=== PATIENT | male | born 1945 | race Caucasian/White ===

== ENCOUNTER 2020-01-13 10:21 | Day surgery (SDC) | payer MEDICARE, OTHER ==
--- NOTE | 2020-01-12 22:15 | Pre-Procedure Note/Attestation ---
Pre-Procedure Note/Attestation Complete Prior to Procedure Planned Procedure: right - Removal of cataract and placement of intraocular lens, right eye Procedure Narrative: Removal of cataract and placement of intraocular lens, right eye Indications for Procedure Pre-Operative Diagnosis: Cataract, combined, right eye Attestation I attest that I discussed the nature of the procedure; its benefits; risks and complications; and alternatives (and the risks and benefits of such alternatives ), prior to the procedure, with the patient (or the patient's legal medical claims representative). I attest that, if there was a reasonable possibility of needing a blood transfusion, the patient (or the patient's legal medical claims representative) was given the [place] Department [employer] standardized written summary, pursuant to the [place] Blood Safety Act ([place] Health and Safety Code # 1645, as amended). I attest that I re-evaluated the patient just prior to the surgery and that there has been no change in the patient's H&P, except as documented below: Yayo Ott MD Jan 12, 2020 22:15
[~2020-01-13] VITALS: Ht 172.7 cm; Wt 100.7 kg
[2020-01-13] VITALS (8 sets, daily range): BP systolic 96–111; BP diastolic 60–76
[~2020-01-13 10:21] MED LIST: ADEMPAS2.5 MG PO; BUMEX1 MG ORAL; CYANOCOBALAMIN IM; CYCLOBENZAPRINE10 MG ORAL; DESOWEN60 GM TP; ELIQUIS5 MG PO; HYDROXYZINE HCL25 M1 PO; LOMOTIL TABLET1 EACH ORAL; ONDANSETRON ODT8 MG ORAL; OXYBUTYNIN CHLO10 MG PO; PREDNISONE2.5 MG ORAL; PRILOSEC OTC20 MG ORAL; PROSCAR5 MG ORAL; SYMBICORT 16010.2 G1 IH; SYNTHROID150 MCG ORAL; TRAMADOL HCL50 MG ORAL; VENLAFAXINE HCL25 MG ORAL; XANAX0.5 MG ORAL; ZOCOR20 M1 ORAL; periactin PO; testosterone IM
[2020-01-13] MEDS: Cyclopentolate 1% Opth Sol 2ml RIGHT EYE SCH ×3 (10:55→11:36)
[2020-01-13] MEDS: Phenylephrine 10% Opth Soln 5ml RIGHT EYE SCH ×3 (10:56→11:36)
[2020-01-13] MEDS: Tropicamide 1% Opth 15ml Soln RIGHT EYE SCH ×3 (10:56→11:36)
[2020-01-13] MEDS: Akten 3.5% 1ml Btl RIGHT EYE SCH ×3 (10:56→11:36)
[2020-01-13] MEDS: prednisoLONE acetate 1% Opth Susp 1ml RIGHT EYE SCH ×3 (10:56→11:37)
[2020-01-13] MEDS: Vigamox Opth Soln 3ml RIGHT EYE SCH ×3 (10:56→11:37)
[2020-01-13] MEDS ORDERED: fentaNYL 100 mcg/2 mL IV ONE (11:30)
[2020-01-13] MEDS ORDERED: Povidone-Iodine 5% opth solution ONE (12:19)
[2020-01-13] MEDS ORDERED: Sodium Hyaluronate 10 mg/ml 0.85ml ONE ×2 (12:19→13:40)
[2020-01-13] MEDS ORDERED: Lidocaine 4% Amp 5ml ONE (12:19)
[2020-01-13] MEDS ORDERED: Lidocaine 1% MPF 10mg/ml 5ml ONE (12:19)
[2020-01-13] MEDS ORDERED: BSS 500ml btl ONE (12:19)
[2020-01-13] MEDS ORDERED: BSS 15ml BTL ONE (12:19)
[2020-01-13] MEDS ORDERED: Tetracaine 0.5% Opth 4ml Soln ONE ×2 (12:19→13:40)
[2020-01-13] MEDS ORDERED: Maxitrol Opth Oint 3.5gm ONE (12:20)
[2020-01-13] MEDS ORDERED: prednisoLONE acetate 1% Opth Susp 1ml ONE (12:20)
[2020-01-13] MEDS ORDERED: timoloL maleate 0.5% Op Soln 2.5ml ONE (12:20)
[2020-01-13] MEDS ORDERED: Sterile Water Irrig 1000ml IRRIG ONE (12:30)
[2020-01-13] MEDS ORDERED: NS Irrig 1000ml ONE (12:30)
[2020-01-13] MEDS ORDERED: LR 1000ml ONE (12:30)
--- NOTE | 2020-01-13 13:02 | Anethesia Preoperative Eval ---
Anesthesia Pre-op PMH/ROS General Date of Evaluation: Jan 13, 2020 Time of Evaluation: 12:22 Anesthesiologist: Jose Alfredo ASA Score: ASA 4 Mallampati Score Class I : Soft palate, uvula, fauces, pillars visible Class II: Soft palate, uvula, fauces visible Class III: Soft palate, base of uvula visible Class IV: Only hard plate visible Mallampati Classification: Class III Surgeon: Tru Diagnosis: R eye cataract Surgical Procedure: Cataract extraction Anesthesia History: none Social History: smoking - h/o Family History: no anesthesia problems Allergies: Coded Allergies: LEVOFLOXACIN (Verified Allergy, Severe, throat closes up, 12/15/19) MELOXICAM (Verified Allergy, Severe, throat closes up, 12/15/19) Medications: see eMAR Patient NPO?: Yes Past Medical History Cardiovascular: Reports: HTN, CAD, other - pulmonary HTN, severe CHF; Denies: NH, valve dz, arrhythmia Pulmonary: Reports: PRITI, other - Metastatic to lung CA, s/p resection Gastrointestinal/Genitourinary: Reports: GERD, CRI, other - Suprapubic catheter; Denies: ESRD Neurologic/Psychiatric: Reports: depression/anxiety; Denies: dementia, CVA, TIA, other Endocrine: Reports: hypothyroidism, steroids - on prednison; Denies: DM, other HEENT: Reports: cataract (L), cataract (R) Hematology/Immune: Reports: anemia - of chronic d-s; Denies: DVT, bleeding disorder, other Musculoskeletal/Integumentary: Reports: OA, edema - Lower extr.edema; Denies: RA, DJD, DDD, other Other: obesity PMH Narrative: as above PSxH Narrative: see H&P Anesthesia Pre-op Phys. Exam Physician Exam Last Vital Signs Date Time Temp Pulse Resp B/P (MAP) Pulse Ox O2 Delivery O2 Flow Rate FiO2 01/13/20 10:57 Room Air 01/13/20 10:57 98.0 86 18 102/67 95 Constitutional: NAD Neurologic: CN 2-12 intact Cardiovascular: RRR Respiratory: CTA - diminished breath sounds Gastrointestinal: other - obesity, suprapubic catheter Airway Exam Mallampati Score: Class III MO: limited Neck: short,thick ROM: limited Teeth: missing Dentures: no upper, no lower Anesthesia Pre-op A/P Labs see chart Studies Pre-op Studies: EKG - SR Risk Assessment & Plan Assessment: ASA 4 Plan: MAC with minimal sedation Status Change Before Surgery: Rick Lara MD Jan 13, 2020 13:02
[2020-01-13] MEDS ORDERED: fentaNYL 100 mcg/2 mL IV PRN (13:15)
[2020-01-13] MEDS ORDERED: LR 1000ml 1,000 ML IVLG SCH (13:15)
--- NOTE | 2020-01-13 13:37 | Discharge Instructions ---
Discharge Instructions Discharge Instructions Follow Up Orders Wear eye shield at all times except to place eye drops Continue preoperative eye drops Followup tomorrow in Dr Ott's office For Congestive Heart Failure Reminder Report to your physician any weight gain of 5 pounds or more in one week. Yayo Ott MD Jan 13, 2020 13:37
--- NOTE | 2020-01-13 13:39 | Brief Operative Note ---
Immediate Post Operative Note Operative Note Pre-op Diagnosis: Cataract, combined, right eye Procedure: Phaco PC IOL OD Post-op Diagnosis: same as pre-op Surgeon: Aba Ott MD MS Access Liaison: none Anesthesiologist: Dr Veliz Anesthesia: local, MAC Specimen: none Complications: none Fluids: see chart Estimated Blood Loss: minimal Implant(s) used?: Yes - trejo ZCB00 20.0 Yayo Ott MD Jan 13, 2020 13:39
--- NOTE | 2020-01-13 13:40 | Immediate Post-Op Evaluation ---
Immediate Post-Op Evalulation Immediate Post-Op Evalulation Procedure: R eye cataract extraction with IOL Date of Evaluation: Jan 13, 2020 Time of Evaluation: 13:39 IV Fluids: 100 Blood Products: none Estimated Blood Loss: min Urinary Output: none Blood Pressure Systolic: 108 Blood Pressure Diastolic: 56 Pulse Rate: 86 Respiratory Rate: 22 O2 Sat by Pulse Oximetry: 92 Temperature (Fahrenheit): 98.2 Pain Score (1-10): 1 Nausea: No Vomiting: No Complications none Patient Status: awake, patent, none Hydration Status: adequate Rick Veliz MD Jan 13, 2020 13:40
--- NOTE | 2020-01-13 14:25 | 48 Hour Post Anesthesia Eval ---
Post Anesthesia Evaluation Procedure: R eye cataract extraction with IOL Date of Evaluation: Jan 13, 2020 Time of Evaluation: 14:24 Blood Pressure Systolic: 104 0: 76 Pulse Rate: 86 Respiratory Rate: 22 Temperature (Fahrenheit): 97.6 O2 Sat by Pulse Oximetry: 94 Airway: patent Nausea: No Vomiting: No Pain Intensity: 1 Hydration Status: adequate Cardiopulmonary Status: stable Mental Status/LOC: patient returned to baseline Follow-up Care/Observations: n/a Post-Anesthesia Complications: none Follow-up care needed: ready to discharge Rick Veliz MD Jan 13, 2020 14:25
[2020-01-13] MEDS ORDERED: Bupivacaine 0.75% 30ml vial INJ ONE (15:08)
--- NOTE | 2020-01-13 17:15 | Operative Note - Dictated ---
DATE OF OPERATION: 01/13/2020 SURGEON: Yayo Ott MD. AIRPLANE PILOT CHIEF SURGEON: None. ANESTHESIOLOGIST: Rick Veliz MD. ANESTHESIA: Local/standby/monitored anesthesia care. PREOPERATIVE DIAGNOSIS: Cataract, combined, right eye. POSTOPERATIVE DIAGNOSIS: Cataract, combined, right eye. PROCEDURE: 1. Phacoemulsification cataract, right eye. 2. Placement of posterior chamber intraocular lens, right eye (model ZCB00, power 20.0). SPECIMENS: None. COMPLICATIONS: None. INDICATIONS FOR SURGERY: The patient has had the painless progressive decrease in visual acuity in the right eye secondary to a cataract. The patient understands the risks of surgery including infection, bleeding, need for further surgery, loss of vision, no improvement in vision, loss of the eye, loss of life, glaucoma, retinal detachment, understands these risks and elects to proceed with surgery. FINDINGS: The patient had a +3 to 4 nuclear sclerotic cataract that is very dense centrally as well as +2 cortical changes. OPERATIVE NOTE: After informed consent was obtained, the patient was brought into the operating room and placed in supine position. Cardiac and respiratory monitors were attached. A time-out was performed and all criteria were met and everyone in the room agreed. The right eye was draped and prepped in sterile manner for ocular surgery. A lid speculum was placed in the eye. The patient had surgery in his other eye several weeks ago and he had a very difficult time holding his eye still. He began to have this type of problem at that time also and I elected to do peribulbar block. At this time, cautery scarlett was made at the inferior temporal quadrant and I cut down to the sclera. I then injected a mixture of 50:50 mix of 0.75% Marcaine and 1% lidocaine and injected as a peribulbar injection. Attention was then paid to the 3 o'clock limbus where 1% lidocaine preservative-free was injected at the approximate 3 o'clock limbus. A conjunctiva peritomy from approximately 2:30 to 3:30 was made and dissected posteriorly. Hemostasis was maintained with bipolar cautery. A 2.6 mm limbal incision was made and dissected anteriorly. A paracentesis was made at approximately 12 o'clock and Shugarcaine was injected into the anterior chamber followed by Adama. The anterior chamber was then entered using a 2.6 mm keratome through the limbal incision. An anterior capsulorrhexis was then performed. Hydrodissection and hydrodelineation of the lens was then performed. The lens was then phacoemulsified using a divide and conquer four-quadrant technique. Residual cortical material was then aspirated. Healon was injected into the anterior chamber and capsular bag. The lens was taken from its package, placed into the cartridge and the tip of the cartridge was placed through the limbal incision and the lens was injected into capsular bag and centered nicely with a Sinskey hook. Healon was aspirated from the anterior chamber and capsular bag. Both lens was noted to have both haptics and the optic in the capsular bag and centered along the 3 o'clock to 9 o'clock meridian. The limbal wound was closed with one 10-0 nylon interrupted suture and the knot was rotated and buried. The wounds at the limbus and the paracentesis were also hydrated closed. The wounds were checked and found to be watertight. The conjunctiva for the peribulbar block was then closed with forceps cautery and then conjunctiva at the limbal incision was also closed with forceps cautery. The lid speculum was removed from the eye and the lens was noted to have both haptics and optic in the bag and centered along the 9 o'clock to 3 o'clock meridian. The drapes were removed from the eye and drops of moxifloxacin, TobraDex, and Timoptic 0.5% were applied to the eye followed by Maxitrol ointment and a shield. The patient tolerated the procedure well and left the operating room awake, alert, and in stable condition. Yayo Ott M.D. DR: Jessenia JOB#: [id number] CC:
== END 2020-01-13 14:30 | disposition home or self-care (01) ==
LOC: SUR 10:21
DX: H25.11 Age-related nuclear cataract, right eye (principal); H25.011 Cortical age-related cataract, right eye; K21.9 Gastro-esophageal reflux disease without esophagitis; I13.0 Hypertensive heart and chronic kidney disease with heart failure and stage 1 through stage 4 chronic kidney disease, or unspecified chronic kidney disease; N18.9 Chronic kidney disease, unspecified; I50.9 Heart failure, unspecified; I25.10 Atherosclerotic heart disease of native coronary artery without angina pectoris; G47.33 Obstructive sleep apnea (adult) (pediatric); Z87.891 Personal history of nicotine dependence; F32.9 Major depressive disorder, single episode, unspecified; F41.9 Anxiety disorder, unspecified; E03.9 Hypothyroidism, unspecified; D63.1 Anemia in chronic kidney disease; E66.9 Obesity, unspecified; M19.90 Unspecified osteoarthritis, unspecified site; Z88.8 Allergy status to other drugs, medicaments and biological substances; Z79.52 Long term (current) use of systemic steroids
CPT/HCPCS: 66984; 94003; J3010; J3490; J7120; U0002; V2632; 94150

== ENCOUNTER 2020-04-07 14:41 | Inpatient (IN) | payer MEDICARE, OTHER ==
[~2020-04-07] VITALS: Ht 170.2 cm; Wt 101.2 kg
--- NOTE | 2020-04-07 15:17 | Emergency Room Report ---
History of Present Illness General Chief Complaint: Generalized Weakness Source: Patient Present Illness HPI Patient presents with weakness. He was just discharged from [facility] after having a takedown of a colostomy/ileostomy. Over the course of the last 24 hours he has been unable to ambulate or stand on his own. He denies any fevers or chills. He denies increased abdominal pain. He has moved his bowels today they were loose. He has a Castro that had dark urine. There is no nausea or vomiting. He denies upper respiratory symptoms with cough or sore throat. He was tested for Covid last week and it was negative at [facility]. He does have oxygen at 2-1/2 L/min at home. He feels dehydrated. He is complaining about pain throughout his body. One of the places that he has pain in his left hand where there was an IV. The redness of the hand seems to be worsened. Allergies: Coded Allergies: LEVOFLOXACIN (Verified Allergy, Severe, throat closes up, 12/15/19) MELOXICAM (Verified Allergy, Severe, throat closes up, 12/15/19) COVID-19 Screening Contact w/high risk pt: No Experienced COVID-19 symptoms?: No COVID-19 Testing performed SHERIFF SERGEANT: Yes COVID-19 Screening: Negative COVID-19 COVID-19 Testing Source: 3 days ago Patient History Past Medical History: see triage record Past Surgical History: other - Ileostomy and colostomy with revision Social History: Denies: smoking Social History Narrative From home with model maker plastic Reviewed Nursing Documentation: PMH: Agreed; PSxH: Agreed Nursing Documentation-PM Past Medical History: No History, Except For Hx Cardiac Problems: Yes Hx Cancer: Yes - renal Hx Gastrointestinal Problems: Yes - ileostomy Hx Neurological Problems: No Review of Systems All Other Systems: negative except mentioned in HPI Physical Exam Vital Signs Date Time Temp Pulse Resp B/P (MAP) Pulse Ox O2 Delivery O2 Flow Rate FiO2 04/07/20 14:49 98.2 85 20 98/59 (72) 90 Room Air Sp02 EP Interpretation: reviewed, normal General Appearance: obese, Chronically Ill Head: normocephalic Eyes: bilateral eye normal inspection, bilateral eye PERRL, bilateral eye EOMI ENT: dry mucus membranes Neck: supple Respiratory: lungs clear, normal breath sounds Cardiovascular #1: regular rate, rhythm Cardiovascular #2: 2+ radial (R) Gastrointestinal: normal inspection, normal bowel sounds, non tender, no mass, non-distended, other - Right lower abdomen surgical scar Genitourinary: no CVA tenderness, other - Castro Musculoskeletal: back normal, normal range of motion, other - Unable to stand on own Neurologic: alert, oriented x3, motor weakness - Generalized Psychiatric: depressed affect Skin: warm/dry, other - Erythema left hand extending up some of the forearm Medical Decision Making Reaction to Intervention: Escalated Behavior Diagnostic Impression: Primary Impression: Unable to ambulate Additional Impressions: Renal insufficiency Hypokalemia UTI (urinary tract infection) Qualified Codes: T83.511A - Infection and inflammatory reaction due to indwelling urethral catheter, initial encounter; N39.0 - Urinary tract infection, site not specified Hypomagnesemia ER Course Patient presents with inability to stand or walk after being discharged from [facility] for reversal of ileostomy/colostomy. Differential is broad including acute myocardial infarction, dehydration, sepsis, cellulitis, UTI amongst others. The patient is hypoxemic and hypotensive and therefore fluids and oxygen are indicated. EKG without injury. Chest x-ray atelectasis right base. Labs with normal white count. CMP with low potassium and renal insufficiency. Magnesium low. Patient complaining about anxiety. Ativan ordered. Vital signs improved. Patient still feels weakness. Patient admitted to the hospital. (Urine returned after patient admitted. Antibiotics not started in the emergency department. Discussed with floor nurses for need for antibiotics. Also communicated with admitting MD.) Laboratory Tests Test 04/07/20 16:20 04/07/20 16:25 White Blood Count 6.6 K/UL (4.8-10.8) Red Blood Count 3.43 M/UL (4.70-6.10) L Hemoglobin 9.1 G/DL (14.2-18.0) L Hematocrit 28.0 % (42.0-52.0) L Mean Corpuscular Volume 82 FL (80-99) Mean Corpuscular Hemoglobin 26.5 PG (27.0-31.0) L Mean Corpuscular Hemoglobin Concent 32.4 G/DL (32.0-36.0) Red Cell Distribution Width 20.4 % (11.6-14.8) H Platelet Count 176 K/UL (150-450) Mean Platelet Volume 7.9 FL (6.5-10.1) Neutrophils (%) (Auto) 72.5 % (45.0-75.0) Lymphocytes (%) (Auto) 15.0 % (20.0-45.0) L Monocytes (%) (Auto) 10.9 % (1.0-10.0) H Eosinophils (%) (Auto) 0.2 % (0.0-3.0) Basophils (%) (Auto) 1.4 % (0.0-2.0) Prothrombin Time 11.9 SEC (9.30-11.50) H Prothrombin Time INR 1.1 (0.9-1.1) Activated Partial Thromboplast Time 26 SEC (23-33) Sodium Level 136 MMOL/L (136-145) Potassium Level 3.1 MMOL/L (3.5-5.1) L Chloride Level 100 MMOL/L (98-107) Carbon Dioxide Level 26 MMOL/L (21-32) Anion Gap 10 mmol/L (5-15) Blood Urea Nitrogen 20 mg/dL (7-18) H Creatinine 1.8 MG/DL (0.55-1.30) H Estimated Glomerular Filtration Rate 36.9 mL/min (>60) Glucose Level 71 MG/DL (74-106) L Lactic Acid Level 1.30 mmol/L (0.4-2.0) Calcium Level 7.6 MG/DL (8.5-10.1) L Magnesium Level 1.5 MG/DL (1.8-2.4) L Ferritin 107 NG/ML (8-388) Total Bilirubin 0.9 MG/DL (0.2-1.0) Aspartate Amino Transferase (AST) 59 U/L (15-37) H Alanine Aminotransferase (ALT) 65 U/L (12-78) Alkaline Phosphatase 108 U/L (46-116) Lactate Dehydrogenase 226 U/L (81-234) Total Creatine Kinase 28 U/L (26-308) Troponin I 0.005 ng/mL (0.000-0.056) C-Reactive Protein, Quantitative 8.9 mg/dL (0.00-0.90) H Pro-B-Type Natriuretic Peptide 454 pg/mL (0-125) H Total Protein 6.2 G/DL (6.4-8.2) L Albumin 2.0 G/DL (3.4-5.0) L Globulin 4.2 g/dL Albumin/Globulin Ratio 0.5 (1.0-2.7) L Lipase 71 U/L (73-393) L Urine Color Red Urine Appearance Very cloudy Urine pH 7 (4.5-8.0) Urine Specific [place] 1.005 (1.005-1.035) Urine Protein 2+ (NEGATIVE) H Urine Glucose (UA) Negative (NEGATIVE) Urine Ketones 1+ (NEGATIVE) H Urine Blood 5+ (NEGATIVE) H Urine Nitrite Positive (NEGATIVE) H Urine Bilirubin Negative (NEGATIVE) Urine Urobilinogen 1 MG/DL (0.0-1.0) H Urine Leukocyte Esterase 3+ (NEGATIVE) H Urine RBC Tntc /HPF (0 - 0) H Urine WBC 20-30 /HPF (0 - 0) H Urine Squamous Epithelial Cells None /LPF (NONE/OCC) Urine Bacteria Many /HPF (NONE) H EKG Diagnostic Results Rate: normal Rhythm: NSR ST Segments: no acute changes - Nonspecific ST-T wave changes Rhythm Strip Diag. Results EP Interpretation: yes Rhythm: NSR, no PVC's, no ectopy Chest X-Ray Diagnostic Results Chest X-Ray Diagnostic Results : Chest X-Ray Ordered: Yes # of Views/Limited/Complete: 1 View Indication: Other EP Interpretation: Yes Interpretation: no consolidation, no effusion, no pneumothorax, other - atelectasis Impression: Other Electronically Signed by: Electronically signed by Zurdo Chaidez MD Last Vital Signs Date Time Temp Pulse Resp B/P (MAP) Pulse Ox O2 Delivery O2 Flow Rate FiO2 04/07/20 20:04 98.2 81 21 112/72 94 Room Air Status: improved Disposition: ADMITTED INPATIENT Condition: Serious Zurdo Chaidez MD Apr 07, 2020 15:17
--- NOTE | 2020-04-07 15:28 | NUR ---
ED Nurse Note: pt was placed on OB Room.
--- NOTE | 2020-04-07 15:32 | NUR ---
ED Nurse Note: x-ray at bedside.
--- NOTE | 2020-04-07 16:00 | NUR ---
ED Nurse Note: Pt was wheeled in to ED from home, wheelchair assist d/t difficulty ambulation and generalized weakness that has been going on for 1 month. Pt is AOx4, calm and cooperative to care. Pt arrived with a suprapubic catheter, intact noted with dark brown-red urine output; assessed pt with distended abdomen, edema noted on L upper extemities and bilateral foot, pitting. Pt was placed on bed and gown; family member at bedside. will continue to monitor.
--- NOTE | 2020-04-07 16:45 | NUR ---
ED Nurse Note: urine collected, sent to lab
[2020-04-07 16:47] LABS: BASOPHILS % (AUTO) 1.4 % (0.0-2.0); EOSINOPHILS % (AUTO) 0.2 % (0.0-3.0); HEMOGLOBIN 9.1 G/DL (14.2-18.0); MEAN CORPUSCULAR VOLUME 82 FL (80-99); MONOCYTES % (AUTO) 10.9 % (1.0-10.0); NEUTROPHILS % (AUTO) 72.5 % (45.0-75.0); PLATELET COUNT 176 K/UL (150-450); RED BLOOD COUNT 3.43 M/UL (4.70-6.10); RED CELL DISTRIBUTION WIDTH 20.4 % (11.6-14.8); WHITE BLOOD COUNT 6.6 K/UL (4.8-10.8)
--- NOTE | 2020-04-07 16:51 | Diagnostic Imaging Report ---
Indication: Reason For Exam: Abdominal pain Technique: Single AP view of the abdomen. Comparison: None available Findings: Bowel gas pattern is nonspecific, with scattered loops of small bowel demonstrate gaseous distention. Gas is seen throughout the colon, including the rectum. Status post total right hip arthroplasty. Bases are better evaluated on separately dictated same day chest radiograph. IMPRESSION: Nonspecific bowel gas pattern.
[2020-04-07 16:55] LABS: ANION GAP 10 mmol/L (5-15); BLOOD UREA NITROGEN 20 mg/dL (7-18); CALCIUM 7.6 MG/DL (8.5-10.1); CARBON DIOXIDE 26 MMOL/L (21-32); CHLORIDE 100 MMOL/L (98-107); CREATININE 1.8 MG/DL (0.55-1.30); POTASSIUM 3.1 MMOL/L (3.5-5.1); SODIUM 136 MMOL/L (136-145)
[2020-04-07 16:56] LABS: INR 1.1 (0.9-1.1)
[2020-04-07 17:09] VITALS: BP 111/69
--- NOTE | 2020-04-07 17:12 | Diagnostic Imaging Report ---
Indication: Reason For Exam: Shortness of breath Technique: Single AP view of the chest. Comparison: None. Findings: Heart is mildly enlarged when accounting for projection and technique. There is widening of the mediastinum, with caliber change in the mid trachea No airspace consolidation. Linear right midlung opacity likely represents chronic atelectasis or scarring. No pleural effusion or pneumothorax. No acute osseous abnormality. IMPRESSION: Prominent mediastinum with apparent smooth caliber change of the mid trachea; mediastinum mass or lymphadenopathy is not excluded. Consider further evaluation with chest CT with contrast as clinically indicated.
[2020-04-07 17:13] LABS: ALANINE AMINOTRANSFERASE 65 U/L (12-78); ALBUMIN/GLOBULIN RATIO 0.5 (1.0-2.7); ALKALINE PHOSPHATASE 108 U/L (46-116); ASPARTATE AMINO TRANSFERASE 59 U/L (15-37); BILIRUBIN,TOTAL 0.9 MG/DL (0.2-1.0); CREATINE KINASE 28 U/L (26-308); FERRITIN 107 NG/ML (8-388); LACTATE DEHYDROGENASE 226 U/L (81-234)
[2020-04-07] MEDS ORDERED: LORazepam Inj 2mg/ml 1ml IV ONE (17:15)
[2020-04-07 17:47] LABS: APPEARANCE,URINE VERY CLOUDY; BILIRUBIN, URINE NEGATIVE (NEGATIVE); GLUCOSE, URINE (UA) NEGATIVE (NEGATIVE); KETONES,URINE 1+ (NEGATIVE); LEUKOCYTE ESTERASE ,URINE 3+ (NEGATIVE); NITRITE,URINE POSITIVE (NEGATIVE); PH,URINE 7 (4.5-8.0); PROTEIN,URINE 2+ (NEGATIVE); UROBILINOGEN,URINE 1 MG/DL (0.0-1.0)
[2020-04-07 18:29] LABS: COLOR,URINE RED
--- NOTE | 2020-04-07 19:36 | NUR ---
ED Nurse Note: hand-off given to HOMERO Lutz in MS unit.
--- NOTE | 2020-04-07 20:04 | NUR ---
ED Nurse Note: pt was transferred to [facility] unit under the care of dr shea. report given to clifton gutierres. pt was transferred on stable condition; all belongings was sent with pt.
[2020-04-07] MEDS ORDERED: Ondansetron ODT 8mg tab ORAL PRN (21:45)
[2020-04-07] MEDS ORDERED: HydrOXYzine tab 25mg tab ORAL PRN (21:45)
--- NOTE | 2020-04-07 22:00 | NUR ---
NURSE NOTES: Received patient from ED via gurney accompanied by staff. Alert and oriented x4. SKin assessment done. Belongings checked. Called Dr. Kumar for admission orders and Dr. Angulo was the telecommunications linesworker MD, Obtained orders and carried out. Instructed patient to use call light for assistance. Bed in lowest, lock engaged and alarm on. Will monitor patient.
[2020-04-07] MEDS: ALPRAZolam 0.5mg tab ORAL PRN (23:11)
[2020-04-08] VITALS: BP 121/64
--- NOTE | 2020-04-08 02:15 | NUR ---
NURSE NOTES:Dr Chaidez called and asked if Dr Kumar be informed re uti, patient needs antibiotics, message left for Dr Angulo, doctor covering José, primary nurse aware.
[2020-04-08 04:00] VITALS: BP 96/50
--- NOTE | 2020-04-08 06:52 | NUR ---
NURSE NOTES: Called Dr. Kumar and connected to doctor sales promotion officer and left message regarding patient's skin issue Kirsten to verify dose, Desonide cream and riociguat. Per patient nobody can't bring the cream and riociguat to the hospital.
[2020-04-08 07:07] LABS: BASOPHILS % (AUTO) 1.5 % (0.0-2.0); EOSINOPHILS % (AUTO) 2.4 % (0.0-3.0); HEMATOCRIT 26.5 % (42.0-52.0); HEMOGLOBIN 8.7 G/DL (14.2-18.0); LYMPHOCYTES % (AUTO) 18.6 % (20.0-45.0); MEAN CORPUSCULAR VOLUME 80 FL (80-99); MONOCYTES % (AUTO) 14.5 % (1.0-10.0); PLATELET COUNT 161 K/UL (150-450); RED BLOOD COUNT 3.32 M/UL (4.70-6.10); RED CELL DISTRIBUTION WIDTH 21.9 % (11.6-14.8); WHITE BLOOD COUNT 3.5 K/UL (4.8-10.8)
[2020-04-08 07:26] LABS: PHOSPHORUS 4.1 MG/DL (2.5-4.9)
[2020-04-08 07:33] LABS: ALBUMIN 1.8 G/DL (3.4-5.0); ALBUMIN/GLOBULIN RATIO 0.5 (1.0-2.7); BILIRUBIN,TOTAL 0.9 MG/DL (0.2-1.0); CALCIUM 7.3 MG/DL (8.5-10.1); CREATININE 1.8 MG/DL (0.55-1.30); POTASSIUM 2.7 MMOL/L (3.5-5.1)
[2020-04-08 08:00] VITALS: BP 105/71
--- NOTE | 2020-04-08 08:00 | NUR ---
HAND-OFF: Report given to HOMERO Stephens.
[2020-04-08] MEDS ORDERED: Cefepime 1gm/D5W 55ml IVPB SCH ×2 (09:00)
[2020-04-08] MEDS ORDERED: Eliquis 5mg tablet ORAL SCH (09:00)
[2020-04-08] MEDS ORDERED: Cefepime HCl 2 GM in D5W 55 ML IVPB SCH (09:00)
[2020-04-08] MEDS: Bumetanide 1mg tab ORAL SCH ×3 (09:55→17:15)
[2020-04-08] MEDS: Oxybutynin 5mg tab ORAL SCH (09:56)
--- NOTE | 2020-04-08 10:54 | History and Physical ---
Sania Menard ANESTHESIOLOGIST ASSISTANT 04/08/20 1054: History of Present Illness General Date patient seen: Apr 08, 2020 Time patient seen: 09:30 Reason for Hospitalization: Generalized Weakness Present Illness HPI 74 years old male recently hospitalized at [facility] for takedown of ileostomy with PMH of CKD, HTN, moderate pulmonary HTN, colon cancer, history of perforated diverticulitis, status post multiple surgery, s/p recent ileostomy takedown ( as mentioned above), metastatic colon can cer with mets to lungs ( biopsy proven RML/RUL wedge , currently on Nivolumab), history of left femoral DVT and bilateral PE, diagnosed 05/01/2019, on a/c; chronic cough/chronic bronchitis apparently was unable to ambulate at home and stay on his own. He denied fever and chills. He denied abdominal pain . He reported loose bowel movement. No nausea or vomiting . No cough or shortness of breath. COVID-19 alexsander at [facility] last week was negative. Patient usually oxygen dependent at home at 2 to 2-1/2 L /min. Patient reported feeling dehydrated . He reported generalized pain and weakness. Upon evaluation pulse oximetry was 90% on the room room air , no fevers. Laboratory work-up revealed anemia with hemoglobin 9.1, hematocrit 28 ,no leukocytosis, platelet count 176. Potassium 3.1. Mg 1.5 BUN 20, creatinine 1.8. proBNP 454. Albumin 2.0. CRP 8.9 Urinalysis revealed evidence of UTI and +2 protein . Urine culture thsi amd with gram-negative rods. Chest x-ray showed prominent mediastinum with apparent smooth caliber change of the mid trachea ; mediastinal mass and lymphadenopathy not excluded. Abdominal x-ray revealed nonspecific bowel gas pattern. In emergency department patient started on IV fluids, started on replacement of electrolytes and admitted for further management Allergies: Coded Allergies: LEVOFLOXACIN (Verified Allergy, Severe, throat closes up, 12/15/19) MELOXICAM (Verified Allergy, Severe, throat closes up, 12/15/19) COVID-19 Screening Contact w/high risk pt: No Experienced COVID-19 symptoms?: No Medication History Scheduled Apixaban (Eliquis*), 5 MG PO DAILY, (Reported) Budesonide/Formoterol Fumarate (Symbicort 160-4.5 Mcg Inhaler), 2 PUFF IH BID, (Reported) Bumetanide (Bumetanide), 1 MG ORAL DAILY, (Reported) Cyclobenzaprine Hcl* (Flexeril*), 5 MG ORAL THREE TIMES A DAY, (Reported) Finasteride* (Proscar*), 5 MG ORAL DAILY, (Reported) Levothyroxine Sodium* (Synthroid*), 175 MCG ORAL DAILY, (Reported) Omeprazole Magnesium (Prilosec Otc), 20 MG ORAL DAILY, (Reported) Oxybutynin Chloride (Oxybutynin Chloride Er), 10 MG PO DAILY, (Reported) Prednisone* (Prednisone*), 5 MG ORAL DAILY, (Reported) Riociguat (Adempas), 2.5 MG PO TID, (Reported) Simvastatin (Zocor), 20 MG ORAL BEDTIME, (Reported) Venlafaxine Hcl* (Effexor*), 100 MG ORAL BID, (Reported) [cynocobalamin ], 1,000 MCG IM every 14 days, (Reported) [periactin], 4 MG PO TID, (Reported) [testosterone], 200 MG IM every 14 days, (Reported) Scheduled PRN Alprazolam* (Xanax*), 0.5 MG ORAL TID PRN for For Anxiety, (Reported) Hydroxyzine Hcl (Hydroxyzine Hcl), 25 MG PO BID PRN for Itching, (Reported) Ondansetron Odt* (Zofran Odt*), 8 MG ORAL Q8HR PRN for Nausea & Vomiting, (Reported) Tramadol Hcl* (Ultram*), 50 MG ORAL Q6H PRN for For Pain, (Reported) Miscellaneous Medications Desonide (Desowen), 60 GM TP, (Reported) Patient History Healthcare decision maker Resuscitation status full code Advanced Directive on File No Review of Systems Constitutional: Reports: malaise, weakness Eye: Reports: no symptoms ENT: Reports: no symptoms Respiratory: Reports: see HPI Cardiovascular: Reports: no symptoms Gastrointestinal: Reports: see HPI Genitourinary: Reports: see HPI Musculoskeletal: Reports: no symptoms Skin: Reports: no symptoms Neurological: Reports: no symptoms Endocrine: Reports: no symptoms Hematologic/Lymphatic: Reports: no symptoms Physical Exam General Appearance: no apparent distress, alert oriented x3 Lines, tubes and drains: peripheral HEENT: normocephalic, atraumatic, anicteric, mucous membranes moist Neck: non-tender, supple Respiratory/Chest: lungs clear - with moderate air exchange , no accessory muscle use Cardiovascular/Chest: normal peripheral pulses, normal rate Abdomen: normal bowel sounds, non tender - obese , soft, other - left lower abdomen healed scar, right upper abdomen site of previous ileostomy with dressing, intact ; no evidecne of infection , healing Genitourinary/Rectal: delong - with dark urine Extremities: normal range of motion, non-tender, no calf tenderness, normal capillary refill Neurologic: no motor/sensory deficits, alert, oriented x 3, responsive Musculoskeletal: normal muscle bulk Last 24 Hour Vital Signs Date Time Temp Pulse Resp B/P (MAP) Pulse Ox O2 Delivery O2 Flow Rate FiO2 04/08/20 08:00 98.6 79 18 105/71 (82) 92 04/08/20 04:00 97.4 76 18 96/50 (65) 92 04/08/20 03:11 Nasal Cannula 2.0 04/08/20 00:00 98.3 18 121/64 (83) 92 04/07/20 20:04 98.2 81 21 112/72 94 Room Air 04/07/20 18:02 86 22 109/70 96 04/07/20 17:32 80 20 111/69 93 04/07/20 17:09 98.2 80 20 111/69 93 Room Air 04/07/20 16:30 85 20 Room Air 04/07/20 14:49 98.2 85 20 98/59 (72) 90 Room Air Intake and Output 04/07/20 04/08/20 19:00 07:00 Intake Total 900 ml Output Total 500 ml Balance 400 ml Intake Oral 500 ml IV Total 400 ml Output Urine Total 500 ml # Bowel Movements 2 Laboratory Tests Test 04/07/20 16:20 04/07/20 16:25 04/08/20 06:52 White Blood Count 6.6 K/UL (4.8-10.8) 3.5 K/UL (4.8-10.8) L Red Blood Count 3.43 M/UL (4.70-6.10) L 3.32 M/UL (4.70-6.10) L Hemoglobin 9.1 G/DL (14.2-18.0) L 8.7 G/DL (14.2-18.0) L Hematocrit 28.0 % (42.0-52.0) L 26.5 % (42.0-52.0) L Mean Corpuscular Volume 82 FL (80-99) 80 FL (80-99) Mean Corpuscular Hemoglobin 26.5 PG (27.0-31.0) L 26.1 PG (27.0-31.0) L Mean Corpuscular Hemoglobin Concent 32.4 G/DL (32.0-36.0) 32.7 G/DL (32.0-36.0) Red Cell Distribution Width 20.4 % (11.6-14.8) H 21.9 % (11.6-14.8) H Platelet Count 176 K/UL (150-450) 161 K/UL (150-450) Mean Platelet Volume 7.9 FL (6.5-10.1) 5.6 FL (6.5-10.1) L Neutrophils (%) (Auto) 72.5 % (45.0-75.0) 63.0 % (45.0-75.0) Lymphocytes (%) (Auto) 15.0 % (20.0-45.0) L 18.6 % (20.0-45.0) L Monocytes (%) (Auto) 10.9 % (1.0-10.0) H 14.5 % (1.0-10.0) H Eosinophils (%) (Auto) 0.2 % (0.0-3.0) 2.4 % (0.0-3.0) Basophils (%) (Auto) 1.4 % (0.0-2.0) 1.5 % (0.0-2.0) Prothrombin Time 11.9 SEC (9.30-11.50) H Prothromb Time International Ratio 1.1 (0.9-1.1) Activated Partial Thromboplast Time 26 SEC (23-33) Sodium Level 136 MMOL/L (136-145) 136 MMOL/L (136-145) Potassium Level 3.1 MMOL/L (3.5-5.1) L 2.7 MMOL/L (3.5-5.1) *L Chloride Level 100 MMOL/L (98-107) 101 MMOL/L (98-107) Carbon Dioxide Level 26 MMOL/L (21-32) 27 MMOL/L (21-32) Anion Gap 10 mmol/L (5-15) 9 mmol/L (5-15) Blood Urea Nitrogen 20 mg/dL (7-18) H 19 mg/dL (7-18) H Creatinine 1.8 MG/DL (0.55-1.30) H 1.8 MG/DL (0.55-1.30) H Estimat Glomerular Filtration Rate 36.9 mL/min (>60) 36.9 mL/min (>60) Glucose Level 71 MG/DL (74-106) L 73 MG/DL (74-106) L Lactic Acid Level 1.30 mmol/L (0.4-2.0) Calcium Level 7.6 MG/DL (8.5-10.1) L 7.3 MG/DL (8.5-10.1) L Magnesium Level 1.5 MG/DL (1.8-2.4) L 2.5 MG/DL (1.8-2.4) H Ferritin 107 NG/ML (8-388) Total Bilirubin 0.9 MG/DL (0.2-1.0) 0.9 MG/DL (0.2-1.0) Aspartate Amino Transf (AST/SGOT) 59 U/L (15-37) H 45 U/L (15-37) H Alanine Aminotransferase (ALT/SGPT) 65 U/L (12-78) 50 U/L (12-78) Alkaline Phosphatase 108 U/L (46-116) 90 U/L (46-116) Lactate Dehydrogenase 226 U/L (81-234) Total Creatine Kinase 28 U/L (26-308) Troponin I 0.005 ng/mL (0.000-0.056) C-Reactive Protein, Quantitative 8.9 mg/dL (0.00-0.90) H Pro-B-Type Natriuretic Peptide 454 pg/mL (0-125) H Total Protein 6.2 G/DL (6.4-8.2) L 5.6 G/DL (6.4-8.2) L Albumin 2.0 G/DL (3.4-5.0) L 1.8 G/DL (3.4-5.0) L Globulin 4.2 g/dL 3.8 g/dL Albumin/Globulin Ratio 0.5 (1.0-2.7) L 0.5 (1.0-2.7) L Lipase 71 U/L (73-393) L Urine Color Red Urine Appearance Very cloudy Urine pH 7 (4.5-8.0) Urine Specific [place]shaw 1.005 (1.005-1.035) Urine Protein 2+ (NEGATIVE) H Urine Glucose (UA) Negative (NEGATIVE) Urine Ketones 1+ (NEGATIVE) H Urine Blood 5+ (NEGATIVE) H Urine Nitrite Positive (NEGATIVE) H Urine Bilirubin Negative (NEGATIVE) Urine Urobilinogen 1 MG/DL (0.0-1.0) H Urine Leukocyte Esterase 3+ (NEGATIVE) H Urine RBC Tntc /HPF (0 - 0) H Urine WBC 20-30 /HPF (0 - 0) H Urine Squamous Epithelial Cells None /LPF (NONE/OCC) Urine Bacteria Many /HPF (NONE) H Phosphorus Level 4.1 MG/DL (2.5-4.9) Microbiology Date/Time Source Procedure Growth Status 04/07/20 16:25 Urine,Clean Catch Urine Culture - Preliminary Gram Negative Ashish Resulted Height (Feet): 5 Height (Inches): 7.00 Weight (Pounds): 223 Medications Current Medications Medications (Trade) Dose Ordered Sig/Kevon Route PRN Reason Start Time Stop Time Status Last Admin Dose Admin Alprazolam (Xanax) 0.5 mg TID PRN ORAL For Anxiety 04/07/20 21:45 04/14/20 21:44 04/07/20 23:11 Apixaban (Eliquis) 0.5 mg BID ORAL 04/08/20 09:00 07/07/20 08:59 UNV Atorvastatin Calcium (Lipitor) 10 mg BEDTIME ORAL 04/08/20 21:00 07/07/20 20:59 Budesonide/ Formoterol Fumarate (Symbicort 160/ 4.5) 2 puff BIDRT INH 04/08/20 10:00 07/07/20 09:59 04/08/20 09:50 Bumetanide (Bumex) 1 mg TID ORAL 04/08/20 09:00 05/08/20 08:59 04/08/20 09:55 Cefepime HCl 1 gm/ Dextrose 55 ml @ 110 mls/hr Q12HR IVPB 04/08/20 09:00 04/15/20 08:59 04/08/20 09:54 Escitalopram Oxalate (Lexapro) 20 mg DAILY ORAL 04/08/20 09:00 05/08/20 08:59 04/08/20 09:55 Finasteride (Proscar) 5 mg DAILY ORAL 04/08/20 09:00 07/07/20 08:59 04/08/20 09:56 Hydroxyzine HCl (Atarax) 25 mg BIDPRN PRN ORAL Itching 04/08/20 06:00 05/07/20 21:44 Levothyroxine Sodium (Synthroid) 75 mcg DAILY@0630 ORAL 04/08/20 06:30 05/08/20 06:29 04/08/20 06:51 Levothyroxine Sodium (Synthroid) 100 mcg DAILY@0630 ORAL 04/08/20 06:30 05/08/20 06:29 04/08/20 06:51 Non-Formulary Medication (Non-Formulary Med) 1 ea DAILY ORAL 04/08/20 09:00 05/08/20 08:59 UNV Non-Formulary Medication (Non-Formulary Med) 1 ea TID ORAL 04/08/20 09:00 05/08/20 08:59 UNV Ondansetron HCl (Zofran ODT) 8 mg Q8H PRN ORAL Nausea & Vomiting 04/08/20 06:00 05/07/20 21:44 Oxybutynin Chloride (Ditropan) 10 mg DAILY ORAL 04/08/20 09:00 05/08/20 08:59 04/08/20 09:56 Pantoprazole (Protonix) 40 mg BID ORAL 04/08/20 09:00 05/08/20 08:59 04/08/20 09:54 Potassium Chloride (K-Dur) 40 meq TWICE A DAY ORAL 04/08/20 09:00 04/08/20 18:01 04/08/20 09:54 Prednisone (predniSONE) 5 mg DAILY ORAL 04/08/20 09:00 05/08/20 08:59 04/08/20 09:54 Tramadol HCl (Ultram) 50 mg Q6H PRN ORAL For Pain 04/07/20 21:45 04/14/20 21:44 Assessment/Plan Assessment/Plan: ASSESSMENT UTI E/lyte imbalance : hypo Mg, hypo K CKD Pulmonary HTN /CTEPH FTT, unable to care for himself Possible protein calorie malnutrition Metastatic colon Ca with lung mets ( biopsy proven)- on Nivolumab currently 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 Hx of perforated diverticulitis with multiple surgeries, s/p recent ileostomy takedown Moderate pulmonary HTN Chronic bronchitis HTN Obesity PLAN OF CARE MS floor O2 titrate to keep sat > 92 pulm toilet resume home inhaler resume a/c s/p IVF Mg stabilized, K - still low, additional K this am monitor renal parameters, lytes, avoid nephrotoxic, nephro eval pending empiric abx fup with cx home meds resumed surgery eval pending SW for placement PT eval and Rx fall precautions dietary eval GI prophylaxis supportive care case discussed and evaluated by supervising physician Eliazar Kumar MD 04/08/20 1341: History of Present Illness General Reason for Hospitalization: Generalized Weakness Present Illness Allergies: Coded Allergies: LEVOFLOXACIN (Verified Allergy, Severe, throat closes up, 12/15/19) MELOXICAM (Verified Allergy, Severe, throat closes up, 12/15/19) Medication History Scheduled Apixaban (Eliquis*), 5 MG PO DAILY, (Reported) Budesonide/Formoterol Fumarate (Symbicort 160-4.5 Mcg Inhaler), 2 PUFF IH BID, (Reported) Bumetanide (Bumetanide), 1 MG ORAL DAILY, (Reported) Cyclobenzaprine Hcl* (Flexeril*), 5 MG ORAL THREE TIMES A DAY, (Reported) Finasteride* (Proscar*), 5 MG ORAL DAILY, (Reported) Levothyroxine Sodium* (Synthroid*), 175 MCG ORAL DAILY, (Reported) Omeprazole Magnesium (Prilosec Otc), 20 MG ORAL DAILY, (Reported) Oxybutynin Chloride (Oxybutynin Chloride Er), 10 MG PO DAILY, (Reported) Prednisone* (Prednisone*), 5 MG ORAL DAILY, (Reported) Riociguat (Adempas), 2.5 MG PO TID, (Reported) Simvastatin (Zocor), 20 MG ORAL BEDTIME, (Reported) Venlafaxine Hcl* (Effexor*), 100 MG ORAL BID, (Reported) [cynocobalamin ], 1,000 MCG IM every 14 days, (Reported) [periactin], 4 MG PO TID, (Reported) [testosterone], 200 MG IM every 14 days, (Reported) Scheduled PRN Alprazolam* (Xanax*), 0.5 MG ORAL TID PRN for For Anxiety, (Reported) Hydroxyzine Hcl (Hydroxyzine Hcl), 25 MG PO BID PRN for Itching, (Reported) Ondansetron Odt* (Zofran Odt*), 8 MG ORAL Q8HR PRN for Nausea & Vomiting, (Reported) Tramadol Hcl* (Ultram*), 50 MG ORAL Q6H PRN for For Pain, (Reported) Miscellaneous Medications Desonide (Desowen), 60 GM TP, (Reported) Sania Menard NP Apr 08, 2020 10:54 Eliazar Kumar MD Apr 08, 2020 13:41
[2020-04-08 12:00] VITALS: BP 109/65
--- NOTE | 2020-04-08 13:04 | NUR ---
P.T Note: P.T evaluation completed and t x initiated . Please refer to P.T evaluation for full report.
--- NOTE | 2020-04-08 13:35 | NUR ---
CASE MANAGEMENT:INITIAL REVIEW 74 YR OLD MALE FROM HOME CC;GENERALIZED WEAKNESS PMHx;COLON CA W/METS TO LUNGS SI;UNABLE TO AMBULATE. UTI. RENAL INSUFFICIENCY. HYPOKALEMIA. HYPOMAGNESEMIA. 98.2 85 20 98/59 90% ON RA H/H 9.1/28.0 K+ 3.1 BUN 20 CR 1.8 BG71 MAG 1.5 AST 59 CRP 8.9 BNP 454 ALB 2.0 PT 11.9 UA+ PROTEIN, KETONES, NITRITE, UROBILINOGEN, LEUKOCYTE ESTERASE, RBC, WBC, BACTERIA URINE CX + GNR IS;IVF NS BOLUS X2 K-DUR PO ONCE ATIVAN IV ONCE ADMITTED TO MED SURG MED SURG STATUS DCP;FROM HOME
--- NOTE | 2020-04-08 15:01 | Consultation ---
DATE OF CONSULTATION: 04/08/2020 CONSULTING PHYSICIAN: Javan Hernandez M.D. REFERRING PHYSICIAN: Eliazar Kumar MD. REASON FOR CONSULTATION: 1. Acute kidney injury. 2. Chronic kidney disease, stage 3B. 3. Hypokalemia. HISTORY OF PRESENT ILLNESS: The patient is a 74-year-old gentleman, well known to my nephrological service, who had been recently admitted for prolonged period of time at [facility]. He had a history of perforated diverticulitis, status post multiple surgeries and a recent ileostomy takedown on March 14. Developed small bowel obstruction. NG tube had been placed. During his hospitalization, the patient had become confused and disoriented and deconditioned. Also, has a history of metastatic colon cancer with metastasis to the lungs. Creatinine currently 1.8, potassium 2.7. Feeling weak, tired, and fatigued. ALLERGIES: Levaquin and Mobic. PAST MEDICAL HISTORY: 1. CKD, stage 3B. Baseline creatinine 1.5. 2. Hypertension. 3. Colon cancer. 4. Right femoral DVT. 5. Bilateral PE. FAMILY HISTORY: Positive for hypertension. PAST SURGICAL HISTORY: As mentioned above. REVIEW OF SYSTEMS: NEUROLOGIC: The patient denies headache, change in vision, syncope, or presyncopal episodes. CARDIOVASCULAR: No current chest pain, palpitations, or angina. PULMONARY: Mild shortness of breath, nonproductive cough. GASTROINTESTINAL/GENITOURINARY: The patient feeling slightly nauseated. No diarrhea or emesis. CARDIOVASCULAR: No chest pain. MUSCULOSKELETAL: The patient feeling weak, tired, and fatigued. LABORATORY DATA: Laboratories dated April 08, 2020, white cell count 3.5, hemoglobin 8.7, and platelet count 161. Sodium 136, potassium 2.7, BUN 19, creatinine 1.8, calcium 7.3, magnesium 2.5. PHYSICAL EXAMINATION: VITAL SIGNS: Blood pressure 105/71, respiratory rate 18, pulse 79, temperature 98.6. GENERAL: The patient is somnolent, but arousable, in no overt distress. HEENT: Extraocular muscles intact. No lymphadenopathy noted. Oropharyngeal mucosa is clear and dry. CARDIOVASCULAR: S1, S2. No rubs or gallops. PULMONARY: Clear to auscultation bilaterally with mild upper rhonchi. ABDOMEN: Nondistended and nontender. EXTREMITIES: A 1+ edema bilaterally. ASSESSMENT AND PLAN: 1. Acute kidney injury on CKD stage 3B. Creatinine currently 1.8 and stable. No further renal investigation, required conservative renal monitoring for the time being. Avoid nephrotoxins. 2. Hypokalemia, due to diuretics. At this time, we will replace with daily potassium and monitor. Due to hypokalemia 2.7, we will also add IV potassium for today. 3. Decondition and fatigue. Defer management to primary care physician. 4. Hypothyroidism. The patient on Synthroid. Let me take this opportunity to thank Dr. Kumar, for allowing me to assist in the care of the patient. Javan Hernandez MD DR: ETELVINA/DEIDRE JOB#: [id number] CC:
[2020-04-08 16:00] VITALS: BP 111/69
--- NOTE | 2020-04-08 16:19 | NUR ---
TOP PRECIPITATOR OPERATOR HELPER NOTE PATIENT REFERRED TO [facility] BY [facility] [employer] SELECTOR CONFIRMED WITH DR CHANG IF HE WILL FOLLOW PATIENT. PER MD, [facility] ENDORSED TO DC GLASSWARE SELECTOR TO MAKE REFERRAL
--- NOTE | 2020-04-08 16:39 | Consultation ---
History of Present Illness General Date patient seen: Apr 08, 2020 Reason for Hospitalization: Generalized Weakness Present Illness HPI This is a pleasant 74-year-old male [employer] who has a history of ostomy takedown recently at [facility] was discharged home at home felt like he was having difficulty walking generalized weak and declining and therefore came to emergency department at [facility] for evaluation admitted further care management. States he is having loose bowel movements no significant worsening abdominal pain labs noted given recent surgical intervention surgery called to evaluate assist with care patient seen, patient by, chart reviewed. Patient states he is not eating very well because he does not like the food here but he is okay with eating food and it is not an issue. Does not cause him worsening pain or issues. Passing flatus loose bowel movements. Otherwise working with physical therapy to recover. States he has been having loose bowel movements while laying in bed because he is unable to go to the bathroom. Noted some burning around the perirectal region. Allergies: Coded Allergies: LEVOFLOXACIN (Verified Allergy, Severe, throat closes up, 12/15/19) MELOXICAM (Verified Allergy, Severe, throat closes up, 12/15/19) COVID-19 Screening Contact w/high risk pt: No Experienced COVID-19 symptoms?: No Medication History Scheduled Apixaban (Eliquis*), 5 MG PO DAILY, (Reported) Budesonide/Formoterol Fumarate (Symbicort 160-4.5 Mcg Inhaler), 2 PUFF IH BID, (Reported) Bumetanide (Bumetanide), 1 MG ORAL DAILY, (Reported) Cyclobenzaprine Hcl* (Flexeril*), 5 MG ORAL THREE TIMES A DAY, (Reported) Finasteride* (Proscar*), 5 MG ORAL DAILY, (Reported) Levothyroxine Sodium* (Synthroid*), 175 MCG ORAL DAILY, (Reported) Omeprazole Magnesium (Prilosec Otc), 20 MG ORAL DAILY, (Reported) Oxybutynin Chloride (Oxybutynin Chloride Er), 10 MG PO DAILY, (Reported) Prednisone* (Prednisone*), 5 MG ORAL DAILY, (Reported) Riociguat (Adempas), 2.5 MG PO TID, (Reported) Simvastatin (Zocor), 20 MG ORAL BEDTIME, (Reported) Venlafaxine Hcl* (Effexor*), 100 MG ORAL BID, (Reported) [cynocobalamin ], 1,000 MCG IM every 14 days, (Reported) [periactin], 4 MG PO TID, (Reported) [testosterone], 200 MG IM every 14 days, (Reported) Scheduled PRN Alprazolam* (Xanax*), 0.5 MG ORAL TID PRN for For Anxiety, (Reported) Hydroxyzine Hcl (Hydroxyzine Hcl), 25 MG PO BID PRN for Itching, (Reported) Ondansetron Odt* (Zofran Odt*), 8 MG ORAL Q8HR PRN for Nausea & Vomiting, (Reported) Tramadol Hcl* (Ultram*), 50 MG ORAL Q6H PRN for For Pain, (Reported) Miscellaneous Medications Desonide (Desowen), 60 GM TP, (Reported) Patient History History Provided By: Patient, Medical Record, PMD Healthcare decision maker Resuscitation status Advanced Directive on File No Past Medical/Surgical History Past Medical/Surgical History: (1) Hypomagnesemia (2) UTI (urinary tract infection) (3) Hypokalemia (4) Renal insufficiency (5) Unable to ambulate Review of Systems Review of Symptoms General ROS: no weight loss or fever Psychological ROS: no depression or mood changes, no memory loss Ophthalmic ROS: no visual changes or eye irritation ENT ROS: no nasal congestion, hearing loss, dizziness Allergy and Immunology ROS: no allergic symptoms or urticaria Hematological and Lymphatic ROS: no swollen glands, unusual bleeding or bruising Endocrine ROS: no polyuria, polydipsia, weight changes, temperature intolerance Respiratory ROS: no cough, shortness of breath, or wheezing Cardiovascular ROS: no chest pain or dyspnea on exertion Gastrointestinal ROS: denies abdominal pain, bright red blood in stool. Musculoskeletal ROS: no myalgias or arthralgias Neurological ROS: no TIA or stroke symptoms Dermatological ROS: no new or changing skin lesions, rashes or pruritis Physical Exam Physical Exam General appearance: alert, cooperative, no distress, appears stated age Head: Normocephalic, without obvious abnormality, atraumatic Eyes: conjunctivae/corneas clear. PERRL, EOM's intact. Fundi benign Throat: Lips, mucosa, and tongue normal. Teeth and gums normal Neck: supple, symmetrical, trachea midline, no adenopathy, thyroid: not enlarged, symmetric, no tenderness/mass/nodules, no carotid bruit and no JVD Lungs: clear to auscultation bilaterally Heart: regular rate and rhythm, S1, S2 normal, no murmur, click, rub or gallop Abdomen: soft, non-tender. Bowel sounds normal. No masses, no organomegaly Extremities: extremities normal, atraumatic, no cyanosis or edema Pulses: 2+ and symmetric Skin: Skin color, texture, turgor normal. No rashes or lesions Neurologic: Grossly normal Last 24 Hour Vital Signs Date Time Temp Pulse Resp B/P (MAP) Pulse Ox O2 Delivery O2 Flow Rate FiO2 04/08/20 12:00 98.2 82 18 109/65 (80) 95 04/08/20 11:39 77 20 94 Room Air 21 04/08/20 09:52 79 18 94 Room Air 21 04/08/20 09:47 79 18 94 Room Air 04/08/20 09:00 Nasal Cannula 2.0 04/08/20 08:00 98.6 79 18 105/71 (82) 92 04/08/20 04:00 97.4 76 18 96/50 (65) 92 04/08/20 03:11 Nasal Cannula 2.0 04/08/20 00:00 98.3 18 121/64 (83) 92 04/07/20 20:04 98.2 81 21 112/72 94 Room Air 04/07/20 18:02 86 22 109/70 96 04/07/20 17:32 80 20 111/69 93 04/07/20 17:09 98.2 80 20 111/69 93 Room Air Intake and Output 04/07/20 04/08/20 19:00 07:00 Intake Total 900 ml Output Total 500 ml Balance 400 ml Intake Oral 500 ml IV Total 400 ml Output Urine Total 500 ml # Bowel Movements 2 Laboratory Tests Test 04/08/20 06:52 White Blood Count 3.5 K/UL (4.8-10.8) L Red Blood Count 3.32 M/UL (4.70-6.10) L Hemoglobin 8.7 G/DL (14.2-18.0) L Hematocrit 26.5 % (42.0-52.0) L Mean Corpuscular Volume 80 FL (80-99) Mean Corpuscular Hemoglobin 26.1 PG (27.0-31.0) L Mean Corpuscular Hemoglobin Concent 32.7 G/DL (32.0-36.0) Red Cell Distribution Width 21.9 % (11.6-14.8) H Platelet Count 161 K/UL (150-450) Mean Platelet Volume 5.6 FL (6.5-10.1) L Neutrophils (%) (Auto) 63.0 % (45.0-75.0) Lymphocytes (%) (Auto) 18.6 % (20.0-45.0) L Monocytes (%) (Auto) 14.5 % (1.0-10.0) H Eosinophils (%) (Auto) 2.4 % (0.0-3.0) Basophils (%) (Auto) 1.5 % (0.0-2.0) Sodium Level 136 MMOL/L (136-145) Potassium Level 2.7 MMOL/L (3.5-5.1) *L Chloride Level 101 MMOL/L (98-107) Carbon Dioxide Level 27 MMOL/L (21-32) Anion Gap 9 mmol/L (5-15) Blood Urea Nitrogen 19 mg/dL (7-18) H Creatinine 1.8 MG/DL (0.55-1.30) H Estimat Glomerular Filtration Rate 36.9 mL/min (>60) Glucose Level 73 MG/DL (74-106) L Calcium Level 7.3 MG/DL (8.5-10.1) L Phosphorus Level 4.1 MG/DL (2.5-4.9) Magnesium Level 2.5 MG/DL (1.8-2.4) H Total Bilirubin 0.9 MG/DL (0.2-1.0) Aspartate Amino Transf (AST/SGOT) 45 U/L (15-37) H Alanine Aminotransferase (ALT/SGPT) 50 U/L (12-78) Alkaline Phosphatase 90 U/L (46-116) Total Protein 5.6 G/DL (6.4-8.2) L Albumin 1.8 G/DL (3.4-5.0) L Globulin 3.8 g/dL Albumin/Globulin Ratio 0.5 (1.0-2.7) L Height (Feet): 5 Height (Inches): 7.00 Weight (Pounds): 223 Medications Current Medications Medications (Trade) Dose Ordered Sig/Kevon Route PRN Reason Start Time Stop Time Status Last Admin Dose Admin Alprazolam (Xanax) 0.5 mg TID PRN ORAL For Anxiety 04/07/20 21:45 04/14/20 21:44 04/07/20 23:11 Apixaban (Eliquis) 0.5 mg BID ORAL 04/08/20 09:00 07/07/20 08:59 UNV Atorvastatin Calcium (Lipitor) 10 mg BEDTIME ORAL 04/08/20 21:00 07/07/20 20:59 Budesonide/ Formoterol Fumarate (Symbicort 160/ 4.5) 2 puff BIDRT INH 04/08/20 10:00 07/07/20 09:59 04/08/20 09:50 Bumetanide (Bumex) 1 mg TID ORAL 04/08/20 09:00 05/08/20 08:59 04/08/20 13:38 Cefepime HCl 1 gm/ Dextrose 55 ml @ 110 mls/hr Q24H IVPB 04/09/20 09:00 04/16/20 08:59 Escitalopram Oxalate (Lexapro) 20 mg DAILY ORAL 04/08/20 09:00 05/08/20 08:59 04/08/20 09:55 Finasteride (Proscar) 5 mg DAILY ORAL 04/08/20 09:00 07/07/20 08:59 04/08/20 09:56 Hydroxyzine HCl (Atarax) 25 mg BIDPRN PRN ORAL Itching 04/08/20 06:00 05/07/20 21:44 Levothyroxine Sodium (Synthroid) 75 mcg DAILY@0630 ORAL 04/08/20 06:30 05/08/20 06:29 04/08/20 06:51 Levothyroxine Sodium (Synthroid) 100 mcg DAILY@0630 ORAL 04/08/20 06:30 05/08/20 06:29 04/08/20 06:51 Non-Formulary Medication (Non-Formulary Med) 1 ea DAILY ORAL 04/08/20 09:00 05/08/20 08:59 UNV Non-Formulary Medication (Non-Formulary Med) 1 ea TID ORAL 04/08/20 09:00 05/08/20 08:59 UNV Ondansetron HCl (Zofran ODT) 8 mg Q8H PRN ORAL Nausea & Vomiting 04/08/20 06:00 05/07/20 21:44 Oxybutynin Chloride (Ditropan) 10 mg DAILY ORAL 04/08/20 09:00 05/08/20 08:59 04/08/20 09:56 Pantoprazole (Protonix) 40 mg BID ORAL 04/08/20 09:00 05/08/20 08:59 04/08/20 09:54 Potassium Chloride (K-Dur) 40 meq TWICE A DAY ORAL 04/08/20 09:00 04/08/20 18:01 04/08/20 09:54 Prednisone (predniSONE) 5 mg DAILY ORAL 04/08/20 09:00 05/08/20 08:59 04/08/20 09:54 Tramadol HCl (Ultram) 50 mg Q6H PRN ORAL For Pain 04/07/20 21:45 04/14/20 21:44 Assessment/Plan Problem List: (1) Hypomagnesemia ICD Codes: E83.42 - Hypomagnesemia SNOMED: 010462630 (2) UTI (urinary tract infection) ICD Codes: N39.0 - Urinary tract infection, site not specified SNOMED: 92039314 Qualifiers: Qualified Codes: T83.511A - Infection and inflammatory reaction due to indwelling urethral catheter, initial encounter; N39.0 - Urinary tract infection, site not specified (3) Hypokalemia ICD Codes: E87.6 - Hypokalemia SNOMED: 36108779, 675900326 (4) Renal insufficiency ICD Codes: N28.9 - Disorder of kidney and ureter, unspecified SNOMED: 533576313, 194640486 (5) Unable to ambulate ICD Codes: R26.2 - Difficulty in walking, not elsewhere classified SNOMED: 419147925, 902388661 (6) Incontinence associated dermatitis Assessment & Plan: Patient status post recent ostomy takedown has been recovering at home but was declining difficulty with breathing and ambulating came to emergency department [facility] was admitted. He is still having difficulty with ambulating working with physical therapy. In his current state he is eating though he does not like the food and he is having loose bowel movements. Unfortunately is unable go to the bathroom is been sitting is with bowel movements and has noted some itching in the perirectal region on identification being noted to have gone associated dermatitis. I discussion with the patient regarding 2 bowel movements call light and assistance. Nursing staff aware. Please monitor for incontinence clean accordingly. Turn every 2 hours. Incentive spirometry. Offload pressures as possible. Keep heels elevated with pillows while in bed. Respiratory therapy. Thank you will follow the recommendations ICD Codes: L25.8 - Unspecified contact dermatitis due to other agents; R32 - Unspecified urinary incontinence SNOMED: 046078901 Jeremiah Gonzales Apr 08, 2020 16:39
--- NOTE | 2020-04-08 16:56 | Consultation ---
History of Present Illness General Chief Complaint: Generalized Weakness Referring physician: Dr. Kumar Present Illness HPI 74 yo male recently discharged from [facility] after takedown of ileostomy 03/14/20 admitted through the ER c/o weakness and failure to thrive. 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 Pt feels he is unable to care for himself and is asking for SNF placement. Denies chest pain, fever, chills. Has been COVID negative. We are asked to see the patient for evaluation and management of multiple cardiac issu es. Allergies: Coded Allergies: LEVOFLOXACIN (Verified Allergy, Severe, throat closes up, 12/15/19) MELOXICAM (Verified Allergy, Severe, throat closes up, 12/15/19) Medication History Scheduled Apixaban (Eliquis*), 5 MG PO DAILY, (Reported) Budesonide/Formoterol Fumarate (Symbicort 160-4.5 Mcg Inhaler), 2 PUFF IH BID, (Reported) Bumetanide (Bumetanide), 1 MG ORAL DAILY, (Reported) Cyclobenzaprine Hcl* (Flexeril*), 5 MG ORAL THREE TIMES A DAY, (Reported) Finasteride* (Proscar*), 5 MG ORAL DAILY, (Reported) Levothyroxine Sodium* (Synthroid*), 175 MCG ORAL DAILY, (Reported) Omeprazole Magnesium (Prilosec Otc), 20 MG ORAL DAILY, (Reported) Oxybutynin Chloride (Oxybutynin Chloride Er), 10 MG PO DAILY, (Reported) Prednisone* (Prednisone*), 5 MG ORAL DAILY, (Reported) Riociguat (Adempas), 2.5 MG PO TID, (Reported) Simvastatin (Zocor), 20 MG ORAL BEDTIME, (Reported) Venlafaxine Hcl* (Effexor*), 100 MG ORAL BID, (Reported) [cynocobalamin ], 1,000 MCG IM every 14 days, (Reported) [periactin], 4 MG PO TID, (Reported) [testosterone], 200 MG IM every 14 days, (Reported) Scheduled PRN Alprazolam* (Xanax*), 0.5 MG ORAL TID PRN for For Anxiety, (Reported) Hydroxyzine Hcl (Hydroxyzine Hcl), 25 MG PO BID PRN for Itching, (Reported) Ondansetron Odt* (Zofran Odt*), 8 MG ORAL Q8HR PRN for Nausea & Vomiting, (Reported) Tramadol Hcl* (Ultram*), 50 MG ORAL Q6H PRN for For Pain, (Reported) Miscellaneous Medications Desonide (Desowen), 60 GM TP, (Reported) Patient History History Provided By: Medical Record Healthcare decision maker Resuscitation status Advanced Directive on File No Review of Systems Constitutional: Reports: weakness Respiratory: Reports: shortness of breath Cardiovascular: Reports: no symptoms All Other Systems: negative except mentioned in HPI Physical Exam General Appearance: no apparent distress, obese HEENT: normocephalic, atraumatic Neck: supple Respiratory/Chest: no respiratory distress, no accessory muscle use Cardiovascular/Chest: normal rate, regular rhythm Abdomen: soft Extremities: moderate edema Neurologic: oriented x 3 Last 24 Hour Vital Signs Date Time Temp Pulse Resp B/P (MAP) Pulse Ox O2 Delivery O2 Flow Rate FiO2 04/08/20 12:00 98.2 82 18 109/65 (80) 95 04/08/20 11:39 77 20 94 Room Air 21 04/08/20 09:52 79 18 94 Room Air 21 04/08/20 09:47 79 18 94 Room Air 04/08/20 09:00 Nasal Cannula 2.0 04/08/20 08:00 98.6 79 18 105/71 (82) 92 04/08/20 04:00 97.4 76 18 96/50 (65) 92 04/08/20 03:11 Nasal Cannula 2.0 04/08/20 00:00 98.3 18 121/64 (83) 92 04/07/20 20:04 98.2 81 21 112/72 94 Room Air 04/07/20 18:02 86 22 109/70 96 04/07/20 17:32 80 20 111/69 93 04/07/20 17:09 98.2 80 20 111/69 93 Room Air Intake and Output 04/07/20 04/08/20 19:00 07:00 Intake Total 900 ml Output Total 500 ml Balance 400 ml Intake Oral 500 ml IV Total 400 ml Output Urine Total 500 ml # Bowel Movements 2 Laboratory Tests Test 04/08/20 06:52 White Blood Count 3.5 K/UL (4.8-10.8) L Red Blood Count 3.32 M/UL (4.70-6.10) L Hemoglobin 8.7 G/DL (14.2-18.0) L Hematocrit 26.5 % (42.0-52.0) L Mean Corpuscular Volume 80 FL (80-99) Mean Corpuscular Hemoglobin 26.1 PG (27.0-31.0) L Mean Corpuscular Hemoglobin Concent 32.7 G/DL (32.0-36.0) Red Cell Distribution Width 21.9 % (11.6-14.8) H Platelet Count 161 K/UL (150-450) Mean Platelet Volume 5.6 FL (6.5-10.1) L Neutrophils (%) (Auto) 63.0 % (45.0-75.0) Lymphocytes (%) (Auto) 18.6 % (20.0-45.0) L Monocytes (%) (Auto) 14.5 % (1.0-10.0) H Eosinophils (%) (Auto) 2.4 % (0.0-3.0) Basophils (%) (Auto) 1.5 % (0.0-2.0) Sodium Level 136 MMOL/L (136-145) Potassium Level 2.7 MMOL/L (3.5-5.1) *L Chloride Level 101 MMOL/L (98-107) Carbon Dioxide Level 27 MMOL/L (21-32) Anion Gap 9 mmol/L (5-15) Blood Urea Nitrogen 19 mg/dL (7-18) H Creatinine 1.8 MG/DL (0.55-1.30) H Estimat Glomerular Filtration Rate 36.9 mL/min (>60) Glucose Level 73 MG/DL (74-106) L Calcium Level 7.3 MG/DL (8.5-10.1) L Phosphorus Level 4.1 MG/DL (2.5-4.9) Magnesium Level 2.5 MG/DL (1.8-2.4) H Total Bilirubin 0.9 MG/DL (0.2-1.0) Aspartate Amino Transf (AST/SGOT) 45 U/L (15-37) H Alanine Aminotransferase (ALT/SGPT) 50 U/L (12-78) Alkaline Phosphatase 90 U/L (46-116) Total Protein 5.6 G/DL (6.4-8.2) L Albumin 1.8 G/DL (3.4-5.0) L Globulin 3.8 g/dL Albumin/Globulin Ratio 0.5 (1.0-2.7) L Height (Feet): 5 Height (Inches): 7.00 Weight (Pounds): 223 Medications Current Medications Medications (Trade) Dose Ordered Sig/Kevon Route PRN Reason Start Time Stop Time Status Last Admin Dose Admin Alprazolam (Xanax) 0.5 mg TID PRN ORAL For Anxiety 04/07/20 21:45 04/14/20 21:44 04/07/20 23:11 Apixaban (Eliquis) 0.5 mg BID ORAL 04/08/20 09:00 07/07/20 08:59 UNV Atorvastatin Calcium (Lipitor) 10 mg BEDTIME ORAL 04/08/20 21:00 07/07/20 20:59 Budesonide/ Formoterol Fumarate (Symbicort 160/ 4.5) 2 puff BIDRT INH 04/08/20 10:00 07/07/20 09:59 04/08/20 09:50 Bumetanide (Bumex) 1 mg TID ORAL 04/08/20 09:00 05/08/20 08:59 04/08/20 13:38 Cefepime HCl 1 gm/ Dextrose 55 ml @ 110 mls/hr Q24H IVPB 04/09/20 09:00 04/16/20 08:59 Escitalopram Oxalate (Lexapro) 20 mg DAILY ORAL 04/08/20 09:00 05/08/20 08:59 04/08/20 09:55 Finasteride (Proscar) 5 mg DAILY ORAL 04/08/20 09:00 07/07/20 08:59 04/08/20 09:56 Hydroxyzine HCl (Atarax) 25 mg BIDPRN PRN ORAL Itching 04/08/20 06:00 05/07/20 21:44 Levothyroxine Sodium (Synthroid) 75 mcg DAILY@0630 ORAL 04/08/20 06:30 05/08/20 06:29 04/08/20 06:51 Levothyroxine Sodium (Synthroid) 100 mcg DAILY@0630 ORAL 04/08/20 06:30 05/08/20 06:29 04/08/20 06:51 Non-Formulary Medication (Non-Formulary Med) 1 ea DAILY ORAL 04/08/20 09:00 05/08/20 08:59 UNV Non-Formulary Medication (Non-Formulary Med) 1 ea TID ORAL 04/08/20 09:00 05/08/20 08:59 UNV Ondansetron HCl (Zofran ODT) 8 mg Q8H PRN ORAL Nausea & Vomiting 04/08/20 06:00 05/07/20 21:44 Oxybutynin Chloride (Ditropan) 10 mg DAILY ORAL 04/08/20 09:00 05/08/20 08:59 04/08/20 09:56 Pantoprazole (Protonix) 40 mg BID ORAL 04/08/20 09:00 05/08/20 08:59 04/08/20 09:54 Potassium Chloride (K-Dur) 40 meq TWICE A DAY ORAL 04/08/20 09:00 04/08/20 18:01 04/08/20 09:54 Prednisone (predniSONE) 5 mg DAILY ORAL 04/08/20 09:00 05/08/20 08:59 04/08/20 09:54 Tramadol HCl (Ultram) 50 mg Q6H PRN ORAL For Pain 04/07/20 21:45 04/14/20 21:44 Assessment/Plan Status: stable Assessment/Plan: 1. Weakness, SOB, and failure to thrive 2. Colon CA with metastasis, on Nivolumab s/o ileostomy takedown 03/14/20 3. RCC with JEWEL on CKD 4. HFpEF, EF 65% per recent echo done at [facility] 02/2020 BNP 454 troponin negative 5. HTN 6. Chronic DVT/PE - on Eliquis chronic DVT left pop v to femoral v. SBP and HR in normal territory, in SR. BNP elevated mildly, diuresis as necessary to help alleviate fluid overload, will defer to pulm and nephrology. Breathing on room air at time of exam. Further recs to follow. Beatriz Segovia PA-C Apr 08, 2020 16:56
[2020-04-08] MEDS: traMADol 50mg tab ORAL PRN ×2 (17:19→23:26)
--- NOTE | 2020-04-08 18:00 | NUR ---
NURSE NOTES: Spoke w/pt's caregiver, Eliceo Bob, to confirm Eliquis dosage and to bring Adempas home med in original bottle per pharmacist. Caregiver says to call him ([phone]) if we have any questions or concerns regarding patient. Will endorse to oncoming nurse. Addendum: 04/08/20 at 1849 by COLE STUART RN Caregiver, Eliceo Bob, listed as next of kin in chart.
[2020-04-08] MEDS: Eliquis 2.5mg tablet ORAL SCH (18:26)
[2020-04-08] MEDS: ALPRAZolam 0.5mg tab ORAL PRN ×2 (18:26→21:36)
--- NOTE | 2020-04-08 19:25 | NUR ---
NURSE HAND-OFF: Important Events on Shift: Confirmed Eliquis dosage and caregiver to bring Adempas from home in original bottle; collected c-diff for loose stool. Patient Status: Stable Diet: Cardiac Pending Orders: None Pending Results/Labs:None Pending MD notification: None Latest Vital Signs: Temperature 97.8 , Pulse 85 , B/P 111 /69 , Respiratory Rate 20 , O2 SAT 95 , Nasal Cannula, O2 Flow Rate 2.0 . Vital Sign Comment: Stable Latest Chan Fall Score: 45 Fall Risk: High Risk Safety Measures: Call light Within Reach, Bed Alarm Zone 1, Side Rails Side Rails x2, Bed position Low and Locked. Fall Precautions: Yellow Socks Yellow Gown Door Sign Patient Fall Education Report given to HOMERO Astudillo.
[2020-04-08 20:00] VITALS: BP 132/66
--- NOTE | 2020-04-08 21:00 | NUR ---
NURSE NOTES: Patient had small amount of loose BM, cleaned. Needs attended. Will continue to monitor.
[2020-04-09] VITALS: BP 104/59
[2020-04-09 04:00] VITALS: BP 107/53
[2020-04-09] MEDS: ALPRAZolam 0.5mg tab ORAL PRN ×2 (04:36→21:36)
[2020-04-09] MEDS: traMADol 50mg tab ORAL PRN ×4 (05:52→23:10)
--- NOTE | 2020-04-09 07:15 | NUR ---
NURSE HAND-OFF: Important Events on Shift: pain and anxiety mgt, hygiene, wound care Patient Status: Diet: cardiac Pending Orders: Pending Results/Labs: Pending MD notification: Latest Vital Signs: Temperature 97.3 , Pulse 69 , B/P 107 /53 , Respiratory Rate 20 , O2 SAT 94 , Nasal Cannula, O2 Flow Rate 2.0 . Vital Sign Comment: Latest Chan Fall Score: 45 Fall Risk: High Risk Safety Measures: Call light Within Reach, Bed Alarm Zone 1, Side Rails Side Rails x2, Bed position Low and Locked. Fall Precautions: Yellow Socks Yellow Gown Door Sign Patient Fall Education Report given to HOMERO Aguila.
--- NOTE | 2020-04-09 07:30 | NUR ---
NURSE NOTES: Patient lying in bed sleeping. No signs and symptoms of pain or distress at this time. On O2@2L via NC. IV dressing intact and dry. Suprapubic catheter patent and draining well. Bed lowest position. Call light within reach. Will continue to monitor.
[2020-04-09 08:00] VITALS: BP 96/55
--- NOTE | 2020-04-09 09:01 | Pulmonology Progress Note ---
Subjective Allergies: Coded Allergies: LEVOFLOXACIN (Verified Allergy, Severe, throat closes up, 12/15/19) MELOXICAM (Verified Allergy, Severe, throat closes up, 12/15/19) Subjective afebrile denies CP, SOB reports fatigue and gen weakness pulse oix stable on 2l O2 via NC started to work with PT Objective Last 24 Hour Vital Signs Date Time Temp Pulse Resp B/P (MAP) Pulse Ox O2 Delivery O2 Flow Rate FiO2 04/09/20 07:55 80 18 96 Nasal Cannula 2.0 28 04/09/20 07:55 79 18 94 Nasal Cannula 2.0 28 04/09/20 04:00 97.3 69 20 107/53 (71) 94 04/09/20 00:00 97.7 72 24 104/59 (74) 96 04/08/20 23:46 Nasal Cannula 2.0 28 04/08/20 23:46 Nasal Cannula 2.0 28 04/08/20 21:00 Nasal Cannula 2.0 04/08/20 20:00 97.9 73 24 132/66 (88) 97 04/08/20 16:00 97.8 85 20 111/69 (83) 95 04/08/20 12:00 98.2 82 18 109/65 (80) 95 04/08/20 11:39 77 20 94 Room Air 21 04/08/20 09:52 79 18 94 Room Air 21 04/08/20 09:47 79 18 94 Room Air 04/08/20 09:00 Nasal Cannula 2.0 Intake and Output 04/08/20 04/09/20 19:00 07:00 Intake Total 720 ml 600 ml Output Total 1200 ml 1400 ml Balance -480 ml -800 ml Intake Oral 720 ml 600 ml Output Urine Total 1200 ml 1400 ml # Bowel Movements 4 2 Objective General Appearance: no apparent distress, alert oriented x3 Lines, tubes and drains: peripheral HEENT: normocephalic, atraumatic, anicteric, mucous membranes moist Neck: non-tender, supple Respiratory/Chest: lungs clear - with moderate air exchange , no accessory muscle use Cardiovascular/Chest: normal peripheral pulses, normal rate Abdomen: normal bowel sounds, non tender - obese , soft, other - left lower abdomen healed scar, right upper abdomen site of previous ileostomy with dressing, intact ; no evidence of infection , healing Genitourinary/Rectal: delong - with dark urine Extremities: normal range of motion, non-tender, no calf tenderness, normal capillary refill Neurologic: no motor/sensory deficits, alert, oriented x 3, responsive Musculoskeletal: normal muscle bulk Microbiology Date/Time Source Procedure Growth Status 04/08/20 15:20 Stool Clostridium difficile Toxin Assay - Final Complete 04/07/20 16:25 Urine,Clean Catch Urine Culture - Preliminary Gram Negative Ashish Resulted 04/07/20 16:20 Blood Blood Culture - Preliminary NO GROWTH AFTER 24 HOURS Resulted 04/07/20 16:00 Blood Blood Culture - Preliminary NO GROWTH AFTER 24 HOURS Resulted Current Medications Medications (Trade) Dose Ordered Sig/Kevon Route PRN Reason Start Time Stop Time Status Last Admin Dose Admin Alprazolam (Xanax) 0.5 mg TID PRN ORAL For Anxiety 04/07/20 21:45 04/14/20 21:44 04/09/20 04:36 Apixaban (Eliquis) 2.5 mg BID ORAL 04/08/20 18:30 07/07/20 18:29 04/08/20 18:26 Atorvastatin Calcium (Lipitor) 10 mg BEDTIME ORAL 04/08/20 21:00 07/07/20 20:59 04/08/20 21:36 Budesonide/ Formoterol Fumarate (Symbicort 160/ 4.5) 2 puff BIDRT INH 04/08/20 10:00 07/07/20 09:59 04/09/20 08:16 Bumetanide (Bumex) 1 mg TID ORAL 04/08/20 09:00 05/08/20 08:59 04/08/20 17:15 Cefepime HCl 1 gm/ Dextrose 55 ml @ 110 mls/hr Q24H IVPB 04/09/20 09:00 04/16/20 08:59 Escitalopram Oxalate (Lexapro) 20 mg DAILY ORAL 04/08/20 09:00 05/08/20 08:59 04/08/20 09:55 Finasteride (Proscar) 5 mg DAILY ORAL 04/08/20 09:00 07/07/20 08:59 04/08/20 09:56 Hydroxyzine HCl (Atarax) 25 mg BIDPRN PRN ORAL Itching 04/08/20 06:00 05/07/20 21:44 Levothyroxine Sodium (Synthroid) 75 mcg DAILY@0630 ORAL 04/08/20 06:30 05/08/20 06:29 04/09/20 05:51 Levothyroxine Sodium (Synthroid) 100 mcg DAILY@0630 ORAL 04/08/20 06:30 05/08/20 06:29 04/09/20 05:51 Non-Formulary Medication (Non-Formulary Med) 1 ea TID ORAL 04/08/20 09:00 05/08/20 08:59 UNV Ondansetron HCl (Zofran ODT) 8 mg Q8H PRN ORAL Nausea & Vomiting 04/08/20 06:00 05/07/20 21:44 Oxybutynin Chloride (Ditropan) 10 mg DAILY ORAL 04/08/20 09:00 05/08/20 08:59 04/08/20 09:56 Pantoprazole (Protonix) 40 mg BID ORAL 04/08/20 09:00 05/08/20 08:59 04/08/20 17:17 Potassium Chloride (K-Dur) 40 meq TWICE A DAY ORAL 04/08/20 09:00 04/10/20 08:59 04/08/20 17:16 Prednisone (predniSONE) 5 mg DAILY ORAL 04/08/20 09:00 05/08/20 08:59 04/08/20 09:54 Tramadol HCl (Ultram) 50 mg Q6H PRN ORAL For Pain 04/07/20 21:45 04/14/20 21:44 04/09/20 05:52 Assessment/Plan Assessment/Plan ASSESSMENT UTI E/lyte imbalance : hypo Mg, hypo K JEWEL on CKD in setting of RCC Pulmonary HTN /CTEPH FTT, unable to care for himself Possible protein calorie malnutrition Metastatic colon Ca with lung mets ( biopsy proven)- on Nivolumab currently 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 Hx of perforated diverticulitis with multiple surgeries, s/p recent ileostomy takedown Moderate pulmonary HTN Chronic bronchitis HTN Obesity Incontinence associated dermatitis PLAN OF CARE MS floor O2 titrate to keep sat > 92 pulm toilet resume home inhaler continue a/c for DVT/PE s/p IVF Mg stabilized, K - still low, additional K labs pending for this am continue diuretic/Bumex monitor renal parameters, lytes, avoid nephrotoxic, nephro eval appreciated, recommends conservative medical management and avoid nephrotoxics cardio eval appreciated, prior ECHO with pEF empiric abx/Cefepime fup with cx UCX + GNR BCX NGTD stool C dif NGT home meds resumed surgery eval appreciated skin care as per surgeon recommendations SW for placement PT eval and Rx fall precautions dietary eval GI prophylaxis supportive care case discussed and evaluated by supervising physician Sania Menard NP Apr 09, 2020 09:01 Eliazar Kumar MD Apr 09, 2020 13:54
[2020-04-09 09:12] LABS: HEMOGLOBIN 8.1 G/DL (14.2-18.0); MEAN CORPUSCULAR VOLUME 81 FL (80-99); PLATELET COUNT 154 K/UL (150-450); RED BLOOD COUNT 3.21 M/UL (4.70-6.10)
[2020-04-09] MEDS: Eliquis 2.5mg tablet ORAL SCH ×2 (09:37→17:11)
[2020-04-09] MEDS: Oxybutynin 5mg tab ORAL SCH (09:38)
[2020-04-09] MEDS: Bumetanide 1mg tab ORAL SCH ×3 (09:38→17:12)
[2020-04-09] MEDS: Cefepime 1gm/D5W 55ml IVPB SCH ×2 (09:46)
[2020-04-09 09:48] LABS: CREATININE 1.8 MG/DL (0.55-1.30); PHOSPHORUS 3.5 MG/DL (2.5-4.9); POTASSIUM 3.2 MMOL/L (3.5-5.1)
--- NOTE | 2020-04-09 10:51 | Cardiology Progress Note ---
Assessment/Plan Status: stable Assessment/Plan 1. Weakness, SOB, and failure to thrive 2. Colon CA with metastasis, on Nivolumab s/o ileostomy takedown 03/14/20 3. RCC with JEWEL on CKD 4. HFpEF, EF 69% per recent echo done at [facility] 03/14/2020 BNP 454 troponin negative 5. HTN 6. 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 Feeling ok today, SBP low normal. Subjective ROS Limited/Unobtainable: No Cardiovascular: Reports: no symptoms Respiratory: Reports: shortness of breath Gastrointestinal/Abdominal: Reports: abdomen distended Genitourinary: Reports: no symptoms Subjective Denies chest pain or worsening SOB Objective Last 24 Hour Vital Signs Date Time Temp Pulse Resp B/P (MAP) Pulse Ox O2 Delivery O2 Flow Rate FiO2 04/09/20 09:00 Nasal Cannula 2.0 04/09/20 08:00 97.4 76 18 96/55 (69) 93 04/09/20 07:55 80 18 96 Nasal Cannula 2.0 28 04/09/20 07:55 79 18 94 Nasal Cannula 2.0 28 04/09/20 04:00 97.3 69 20 107/53 (71) 94 04/09/20 00:00 97.7 72 24 104/59 (74) 96 04/08/20 23:46 Nasal Cannula 2.0 28 04/08/20 23:46 Nasal Cannula 2.0 28 04/08/20 21:00 Nasal Cannula 2.0 04/08/20 20:00 97.9 73 24 132/66 (88) 97 04/08/20 16:00 97.8 85 20 111/69 (83) 95 04/08/20 12:00 98.2 82 18 109/65 (80) 95 04/08/20 11:39 77 20 94 Room Air 21 General Appearance: no apparent distress, alert EENT: PERRL/EOMI Neck: supple, no JVD Rhythm: NSR Cardiovascular: normal rate, regular rhythm Respiratory/Chest: no accessory muscle use, decreased breath sounds Abdomen: distended Extremities: calf tenderness, moderate edema, pitting Neurologic: supervisor shaving and splitting II-XII grossly normal Intake and Output 04/08/20 04/09/20 19:00 07:00 Intake Total 720 ml 600 ml Output Total 1200 ml 1400 ml Balance -480 ml -800 ml Intake Oral 720 ml 600 ml Output Urine Total 1200 ml 1400 ml # Bowel Movements 4 2 2D Echo: EF 69% Laboratory Tests Test 04/09/20 09:00 White Blood Count 3.0 K/UL (4.8-10.8) L Red Blood Count 3.21 M/UL (4.70-6.10) L Hemoglobin 8.1 G/DL (14.2-18.0) L Hematocrit 26.0 % (42.0-52.0) L Mean Corpuscular Volume 81 FL (80-99) Mean Corpuscular Hemoglobin 25.2 PG (27.0-31.0) L Mean Corpuscular Hemoglobin Concent 31.1 G/DL (32.0-36.0) L Red Cell Distribution Width 21.0 % (11.6-14.8) H Platelet Count 154 K/UL (150-450) Mean Platelet Volume 5.9 FL (6.5-10.1) L Neutrophils (%) (Auto) % (45.0-75.0) Lymphocytes (%) (Auto) % (20.0-45.0) Monocytes (%) (Auto) % (1.0-10.0) Eosinophils (%) (Auto) % (0.0-3.0) Basophils (%) (Auto) % (0.0-2.0) Neutrophils % (Manual) Pending Lymphocytes % (Manual) Pending Platelet Estimate Pending Platelet Morphology Pending Sodium Level 135 MMOL/L (136-145) L Potassium Level 3.2 MMOL/L (3.5-5.1) L Chloride Level 101 MMOL/L (98-107) Carbon Dioxide Level 27 MMOL/L (21-32) Anion Gap 7 mmol/L (5-15) Blood Urea Nitrogen 13 mg/dL (7-18) Creatinine 1.8 MG/DL (0.55-1.30) H Estimat Glomerular Filtration Rate 36.9 mL/min (>60) Glucose Level 96 MG/DL (74-106) Calcium Level 7.0 MG/DL (8.5-10.1) L Phosphorus Level 3.5 MG/DL (2.5-4.9) Magnesium Level 1.9 MG/DL (1.8-2.4) Microbiology Date/Time Source Procedure Growth Status 04/08/20 15:20 Stool Clostridium difficile Toxin Assay - Final Complete 04/07/20 16:25 Urine,Clean Catch Urine Culture - Preliminary Gram Negative Ashish Resulted 04/07/20 16:20 Blood Blood Culture - Preliminary NO GROWTH AFTER 24 HOURS Resulted 04/07/20 16:00 Blood Blood Culture - Preliminary NO GROWTH AFTER 24 HOURS Resulted Beatriz Segovia PA-C Apr 09, 2020 10:51
[2020-04-09 12:00] VITALS: BP 99/63
[2020-04-09] MEDS: ADEMPAS 2.5 MG ORAL SCH ×2 (12:55→17:12)
--- NOTE | 2020-04-09 13:35 | NUR ---
HAND-OFF: Report given to Kacey VALENTIN. Patient in stable condition. Belonging checked with RN and wound photo taken and uploaded.
--- NOTE | 2020-04-09 13:46 | NUR ---
NURSE NOTES: Patient arrived to unit at 1335 via bed from 4E. Patient is awake and oriented, calm and cooperative. Suprapubic catheter draining dark mali colored urine. Stage 2 left buttock/groin noted-WCP taken this AM, wound dressed with triad cream and optifoam dressing. Bilateral heel stage 1 wounds noted, WCP taken, cavilon skin barrier and optifoam dressings placed. Right hand IV intact. Patient on 2L NC but reports he intermittently removes his oxygen. Patient updated on plan of care. Side rails upx2, bed low and locked, call light within reach. Addendum: 04/09/20 at 1356 by Kacey Amaya RN Add: Dark red blood noted in urine.
[2020-04-09 16:00] VITALS: BP 100/62
[2020-04-09] MEDS ORDERED: Tubing IV Secondary IV ONE (16:13)
--- NOTE | 2020-04-09 16:56 | Nephrology Progress Note ---
Assessment/Plan Status: stable Assessment/Plan: A/P 1) CKD 3B- cr stable within baseline 2) Hypokalemia- due to bumex - continue to replace 3) edema- improving with bumex 4) Metastatic colon Ca with lung mets ( biopsy proven)- on Nivolumab currently Subjective Date patient seen: Apr 09, 2020 ROS Limited/Unobtainable: No Allergies: Coded Allergies: LEVOFLOXACIN (Verified Allergy, Severe, throat closes up, 12/15/19) MELOXICAM (Verified Allergy, Severe, throat closes up, 12/15/19) Subjective Patient feeling better Objective Last 24 Hour Vital Signs Date Time Temp Pulse Resp B/P (MAP) Pulse Ox O2 Delivery O2 Flow Rate FiO2 04/09/20 12:00 98.1 71 17 99/63 (75) 93 04/09/20 09:00 Nasal Cannula 2.0 04/09/20 08:00 97.4 76 18 96/55 (69) 93 04/09/20 07:55 80 18 96 Nasal Cannula 2.0 28 04/09/20 07:55 79 18 94 Nasal Cannula 2.0 28 04/09/20 04:00 97.3 69 20 107/53 (71) 94 04/09/20 00:00 97.7 72 24 104/59 (74) 96 04/08/20 23:46 Nasal Cannula 2.0 28 04/08/20 23:46 Nasal Cannula 2.0 28 04/08/20 21:00 Nasal Cannula 2.0 04/08/20 20:00 97.9 73 24 132/66 (88) 97 Intake and Output 04/08/20 04/09/20 19:00 07:00 Intake Total 720 ml 600 ml Output Total 1200 ml 1400 ml Balance -480 ml -800 ml Intake Oral 720 ml 600 ml Output Urine Total 1200 ml 1400 ml # Bowel Movements 4 2 Laboratory Tests 04/09/20 09:00: White Blood Count 3.0L, Red Blood Count 3.21L, Hemoglobin 8.1L, Hematocrit 26.0L , Mean Corpuscular Volume 81, Mean Corpuscular Hemoglobin 25.2L, Mean Corpuscular Hemoglobin Concent 31.1L, Red Cell Distribution Width 21.0H, Platelet Count 154, Mean Platelet Volume 5.9L, Neutrophils (%) (Auto) , Lymphocytes (%) (Auto) , Monocytes (%) (Auto) , Eosinophils (%) (Auto) , Basophils (%) (Auto) , Differential Total Cells Counted 100, Neutrophils % (Manual) 55, Lymphocytes % (Manual) 29, Monocytes % (Manual) 13H, Eosinophils % (Manual) 3, Basophils % (Manual) 0, Band Neutrophils 0, Platelet Estimate Adequate, Platelet Morphology Normal, Hypochromasia 1+, Anisocytosis 2+, Sodium Level 135L, Potassium Level 3.2L, Chloride Level 101, Carbon Dioxide Level 27, Anion Gap 7, Blood Urea Nitrogen 13, Creatinine 1.8H, Estimat Glomerular Filtration Rate 36.9, Glucose Level 96, Calcium Level 7.0L, Phosphorus Level 3.5, Magnesium Level 1.9 Height (Feet): 5 Height (Inches): 7.00 Weight (Pounds): 223 General Appearance: no apparent distress, alert EENT: normal ENT inspection Neck: normal alignment, supple Cardiovascular: normal rate, regular rhythm Abdomen: non tender, soft Edema: 1+ Arm (L), 1+ Arm (R), 1+ Leg (L), 1+ Leg (R), 1+ Pedal (L), 1+ Pedal (R), 1+ Generalized Javan Hernandez MD Apr 09, 2020 16:56
--- NOTE | 2020-04-09 17:23 | NUR ---
NURSE NOTES: Received order from Dr. Gonzales to pack RLQ surgical site from ileostomy take down with dry gauze and cover with optifoam dressing bid, order read back and entered. Wound care done.
--- NOTE | 2020-04-09 17:56 | Surgery Progress Note ---
Surgery Progress Note Subjective Additional Comments doing better feels better eating well no n/v/f/c labs noted ostomy dressings changed Objective Last 24 Hour Vital Signs Date Time Temp Pulse Resp B/P (MAP) Pulse Ox O2 Delivery O2 Flow Rate FiO2 04/09/20 16:00 98.0 73 18 100/62 (75) 98 04/09/20 12:00 98.1 71 17 99/63 (75) 93 04/09/20 09:00 Nasal Cannula 2.0 04/09/20 08:00 97.4 76 18 96/55 (69) 93 04/09/20 07:55 80 18 96 Nasal Cannula 2.0 28 04/09/20 07:55 79 18 94 Nasal Cannula 2.0 28 04/09/20 04:00 97.3 69 20 107/53 (71) 94 04/09/20 00:00 97.7 72 24 104/59 (74) 96 04/08/20 23:46 Nasal Cannula 2.0 28 04/08/20 23:46 Nasal Cannula 2.0 28 04/08/20 21:00 Nasal Cannula 2.0 04/08/20 20:00 97.9 73 24 132/66 (88) 97 I&O Intake and Output 04/08/20 04/09/20 19:00 07:00 Intake Total 720 ml 600 ml Output Total 1200 ml 1400 ml Balance -480 ml -800 ml Intake Oral 720 ml 600 ml Output Urine Total 1200 ml 1400 ml # Bowel Movements 4 2 Dressing: saturated Cardiovascular: RSR Respiratory: decreased breath sounds Abdomen: soft, non-tender, present bowel sounds, other, non-distended Extremities: no edema, no tenderness, no cyanosis Laboratory Tests Test 04/09/20 09:00 White Blood Count 3.0 K/UL (4.8-10.8) L Red Blood Count 3.21 M/UL (4.70-6.10) L Hemoglobin 8.1 G/DL (14.2-18.0) L Hematocrit 26.0 % (42.0-52.0) L Mean Corpuscular Volume 81 FL (80-99) Mean Corpuscular Hemoglobin 25.2 PG (27.0-31.0) L Mean Corpuscular Hemoglobin Concent 31.1 G/DL (32.0-36.0) L Red Cell Distribution Width 21.0 % (11.6-14.8) H Platelet Count 154 K/UL (150-450) Mean Platelet Volume 5.9 FL (6.5-10.1) L Neutrophils (%) (Auto) % (45.0-75.0) Lymphocytes (%) (Auto) % (20.0-45.0) Monocytes (%) (Auto) % (1.0-10.0) Eosinophils (%) (Auto) % (0.0-3.0) Basophils (%) (Auto) % (0.0-2.0) Differential Total Cells Counted 100 Neutrophils % (Manual) 55 % (45-75) Lymphocytes % (Manual) 29 % (20-45) Monocytes % (Manual) 13 % (1-10) H Eosinophils % (Manual) 3 % (0-3) Basophils % (Manual) 0 % (0-2) Band Neutrophils 0 % (0-8) Platelet Estimate Adequate Platelet Morphology Normal Hypochromasia 1+ Anisocytosis 2+ Sodium Level 135 MMOL/L (136-145) L Potassium Level 3.2 MMOL/L (3.5-5.1) L Chloride Level 101 MMOL/L (98-107) Carbon Dioxide Level 27 MMOL/L (21-32) Anion Gap 7 mmol/L (5-15) Blood Urea Nitrogen 13 mg/dL (7-18) Creatinine 1.8 MG/DL (0.55-1.30) H Estimat Glomerular Filtration Rate 36.9 mL/min (>60) Glucose Level 96 MG/DL (74-106) Calcium Level 7.0 MG/DL (8.5-10.1) L Phosphorus Level 3.5 MG/DL (2.5-4.9) Magnesium Level 1.9 MG/DL (1.8-2.4) Plan Problems: (1) Hypomagnesemia (2) UTI (urinary tract infection) (3) Hypokalemia (4) Renal insufficiency (5) Unable to ambulate (6) Incontinence associated dermatitis Assessment & Plan: Patient status post recent ostomy takedown has been recovering at home but was declining difficulty with breathing and ambulating came to emergency department [facility] was admitted. He is still having difficulty with ambulating working with physical therapy. In his current state he is eating though he does not like the food and he is having loose bowel movements. Unfortunately is unable go to the bathroom is been sitting is with bowel movements and has noted some itching in the perirectal region on identification being noted to have gone associated dermatitis. I discussion with the patient regarding 2 bowel movements call light and assistance. Nursing staff aware. Please monitor for incontinence clean accordingly. Turn every 2 hours. Incentive spirometry. Offload pressures as possible. Keep heels elevated with pillows while in bed. Respiratory therapy. Thank you will follow the recommendations ostomy dressings BID with gauze packing and dressings Jeremiah Gonzales Apr 09, 2020 17:55
--- NOTE | 2020-04-09 19:30 | NUR ---
NURSE NOTES: Receive a report from HOMERO Erazo.
--- NOTE | 2020-04-09 19:36 | NUR ---
NURSE HAND-OFF: Important Events on Shift: Transferred from , wound care. Patient Status: stable Diet: cardiac Pending Orders: N/A Pending Results/Labs: N/A Pending MD notification: N/A Latest Vital Signs: Temperature 98.0 , Pulse 73 , B/P 100 /62 , Respiratory Rate 18 , O2 SAT 98 , Nasal Cannula. Vital Sign Comment: VS stable Latest Hcan Fall Score: 45 Fall Risk: High Risk Safety Measures: Call light Within Reach, Bed Alarm Zone 2, Side Rails Side Rails x2, Bed position Low and Locked. Fall Precautions: Yellow Socks Yellow Gown Door Sign Patient Fall Education Report given to Gisselle VALENTIN.
--- NOTE | 2020-04-09 19:40 | NUR ---
Pt is awake and alert. Generalized pain still noted but after pain medication earlier is tolerating. On bed bound. No respiratory distress or wheezing noted. On O2 2L NC. Supra-pubic catheter is in placed and hematuria noted, which has been quite a while per pt's remark. No dizziness noted. Bilateral heels are elevated with a pillow. Noted pitting edema and redness on lower legs and big toes and dryness on bilateral arm. Will put some lotion on. Call light within reach. Will continue to monitor.
[2020-04-09 20:00] VITALS: BP 107/60
--- NOTE | 2020-04-09 21:30 | NUR ---
NURSE NOTES: Dressing on RLQ with opticform kept dry and intact. Dressing done on supra-pubic catheter. Apply lotion on bilateral arms and Triad on folded abdomen line after cleaning up. Bowel sound intact. Complaining of dryness on eyes. Clean up with saline. Pt says that he has prescribed eye drops, which he did not bring. Will continue to follow up.
--- NOTE | 2020-04-09 23:40 | NUR ---
NURSE NOTES: Pt has brown loose stool. Denies pain. Previous C.diff result is negative. Sacral area is clean and opticform applied for prevention. Will continue to monitor.
[2020-04-10] VITALS: BP 92/58
--- NOTE | 2020-04-10 01:00 | NUR ---
NURSE NOTES: Put on socks for cold on feet. Elevated with towels to elevate. Pt says he has new pain on big toes. Given Tramadol 1t po earlier. Will continue to monitor.
[2020-04-10 05:30] VITALS: BP 121/103
[2020-04-10] MEDS: traMADol 50mg tab ORAL PRN ×4 (05:52→20:41)
--- NOTE | 2020-04-10 06:00 | NUR ---
NURSE NOTES: No BM at this time. Provide morning care. 12hr urine output: 1250ml. Will continue to monitor.
--- NOTE | 2020-04-10 06:45 | NUR ---
NURSE NOTES: Call Dr. Kumar for pt's new pain on his big toes. Receive a new order of Allamuchy 5/325 1t po q6hr prn for severe pain. Order noted and carried out. Update to pt for new order and MD will see him. Will continue to follow up.
[2020-04-10] MEDS: HYDROcodone/Acetamin 5/325 tab ORAL PRN ×3 (07:00→20:00)
--- NOTE | 2020-04-10 07:40 | NUR ---
NURSE HAND-OFF: Important Events on Shift: pain-toes/ one time loose BM Patient Status: [] Diet: [cardiac diet] Pending Orders: [] Pending Results/Labs:[] Pending MD notification:[] Latest Vital Signs: Temperature 97.6 , Pulse 84 , B/P 121 /103 , Respiratory Rate 18 , O2 SAT 97 , Nasal Cannula, O2 Flow Rate 2.0 . Vital Sign Comment: [] Latest Chan Fall Score: 70 Fall Risk: High Risk Safety Measures: Call light Within Reach, Bed Alarm Zone 2, Side Rails Side Rails x3, Bed position Low and Locked. Fall Precautions: Door Sign Patient Fall Education Report given to HOMERO Aguila.
--- NOTE | 2020-04-10 07:45 | NUR ---
NURSE NOTES: Patient lying in bed awake. Complain of pain 8/10 on bilateral legs and pain medication given by rice farmworker nurse. Will continue to monitor. Wound dressing intact and dry. Suprapubic catheter patent and draining well. Bed lowest position. Call light within reach. Will continue to monitor.
[2020-04-10 08:00] VITALS: BP 87/56
--- NOTE | 2020-04-10 08:01 | Pulmonology Progress Note ---
Subjective ROS Limited/Unobtainable: No Allergies: Coded Allergies: LEVOFLOXACIN (Verified Allergy, Severe, throat closes up, 12/15/19) MELOXICAM (Verified Allergy, Severe, throat closes up, 12/15/19) Subjective afebrile denies CP, SOB reports gen weakness also this am had a shooting pain BL foot to ankle, analgesic changed , pain resolved pulse ox stable on 2l O2 via NC denies CP, SOB working with PT dc plan in progress for SNF placement Objective Last 24 Hour Vital Signs Date Time Temp Pulse Resp B/P (MAP) Pulse Ox O2 Delivery O2 Flow Rate FiO2 04/10/20 07:24 97 Nasal Cannula 2.0 28 04/10/20 05:30 97.6 84 18 121/103 (109) 94 04/10/20 00:00 97.8 76 18 92/58 (69) 94 04/09/20 21:00 Nasal Cannula 2.0 04/09/20 20:14 96 Nasal Cannula 2.0 28 04/09/20 20:13 72 18 96 Nasal Cannula 2.0 28 04/09/20 20:11 71 18 96 Nasal Cannula 2.0 28 04/09/20 20:00 97.8 69 18 107/60 (76) 94 04/09/20 16:00 98.0 73 18 100/62 (75) 98 04/09/20 12:00 98.1 71 17 99/63 (75) 93 04/09/20 09:00 Nasal Cannula 2.0 04/09/20 08:00 97.4 76 18 96/55 (69) 93 Intake and Output 04/09/20 04/10/20 19:00 07:00 Intake Total 750 ml 450 ml Output Total 1750 ml 1250 ml Balance -1000 ml -800 ml Intake Oral 750 ml 450 ml Output Urine Total 1750 ml 1250 ml # Bowel Movements 1 Objective General Appearance: no apparent distress, alert oriented x3 Lines, tubes and drains: peripheral HEENT: normocephalic, atraumatic, anicteric, mucous membranes moist Neck: non-tender, supple Respiratory/Chest: lungs clear - with moderate air exchange , no accessory muscle use Cardiovascular/Chest: normal peripheral pulses, normal rate Abdomen: normal bowel sounds, non tender - obese , soft, other - left lower abdomen healed scar, right upper abdomen site of previous ileostomy with dressing, intact ; no evidence of infection , healing Genitourinary/Rectal: delong - with dark urine Extremities: normal range of motion, non-tender, no calf tenderness, normal capillary refill Neurologic: no motor/sensory deficits, alert, oriented x 3, responsive Musculoskeletal: normal muscle bulk Microbiology Date/Time Source Procedure Growth Status 04/08/20 15:20 Stool Clostridium difficile Toxin Assay - Final Complete 04/07/20 16:25 Urine,Clean Catch Urine Culture - Preliminary Enterobacter Aerogenes Gram Positive Cocci Resulted 04/07/20 16:20 Blood Blood Culture - Preliminary NO GROWTH AFTER 24 HOURS Resulted 04/07/20 16:00 Blood Blood Culture - Preliminary NO GROWTH AFTER 24 HOURS Resulted Laboratory Tests 04/09/20 09:00: White Blood Count 3.0L, Red Blood Count 3.21L, Hemoglobin 8.1L, Hematocrit 26.0L , Mean Corpuscular Volume 81, Mean Corpuscular Hemoglobin 25.2L, Mean Corpuscular Hemoglobin Concent 31.1L, Red Cell Distribution Width 21.0H, Platelet Count 154, Mean Platelet Volume 5.9L, Neutrophils (%) (Auto) , Lymphocytes (%) (Auto) , Monocytes (%) (Auto) , Eosinophils (%) (Auto) , Basophils (%) (Auto) , Differential Total Cells Counted 100, Neutrophils % (Man ual) 55, Lymphocytes % (Manual) 29, Monocytes % (Manual) 13H, Eosinophils % (Manual) 3, Basophils % (Manual) 0, Band Neutrophils 0, Platelet Estimate Adequate, Platelet Morphology Normal, Hypochromasia 1+, Anisocytosis 2+, Sodium Level 135L, Potassium Level 3.2L, Chloride Level 101, Carbon Dioxide Level 27, Anion Gap 7, Blood Urea Nitrogen 13, Creatinine 1.8H, Estimat Glomerular Filtration Rate 36.9, Glucose Level 96, Calcium Level 7.0L, Phosphorus Level 3.5, Magnesium Level 1.9 Current Medications Medications (Trade) Dose Ordered Sig/Kevon Route PRN Reason Start Time Stop Time Status Last Admin Dose Admin Acetaminophen/ Hydrocodone Bitart ([place] 5/325) 1 tab Q6H PRN ORAL Severe Pain (Pain Scale 7-10) 04/10/20 07:00 04/17/20 06:59 04/10/20 07:00 Alprazolam (Xanax) 0.5 mg TID PRN ORAL For Anxiety 04/07/20 21:45 04/14/20 21:44 04/09/20 21:36 Apixaban (Eliquis) 2.5 mg BID ORAL 04/08/20 18:30 07/07/20 18:29 04/09/20 17:11 Atorvastatin Calcium (Lipitor) 10 mg BEDTIME ORAL 04/08/20 21:00 07/07/20 20:59 04/09/20 21:37 Budesonide/ Formoterol Fumarate (Symbicort 160/ 4.5) 2 puff BIDRT INH 04/08/20 10:00 07/07/20 09:59 04/09/20 20:08 Bumetanide (Bumex) 1 mg TID ORAL 04/08/20 09:00 05/08/20 08:59 04/09/20 17:12 Cefepime HCl 1 gm/ Dextrose 55 ml @ 110 mls/hr Q24H IVPB 04/09/20 09:00 04/16/20 08:59 04/09/20 09:46 Escitalopram Oxalate (Lexapro) 20 mg DAILY ORAL 04/08/20 09:00 05/08/20 08:59 04/09/20 09:44 Finasteride (Proscar) 5 mg DAILY ORAL 04/08/20 09:00 07/07/20 08:59 04/09/20 09:37 Hydroxyzine HCl (Atarax) 25 mg BIDPRN PRN ORAL Itching 04/08/20 06:00 05/07/20 21:44 Levothyroxine Sodium (Synthroid) 75 mcg DAILY@0630 ORAL 04/08/20 06:30 05/08/20 06:29 04/10/20 05:51 Levothyroxine Sodium (Synthroid) 100 mcg DAILY@0630 ORAL 04/08/20 06:30 05/08/20 06:29 04/10/20 05:51 Ondansetron HCl (Zofran ODT) 8 mg Q8H PRN ORAL Nausea & Vomiting 04/08/20 06:00 05/07/20 21:44 Oxybutynin Chloride (Ditropan) 10 mg DAILY ORAL 04/08/20 09:00 05/08/20 08:59 04/09/20 09:38 Pantoprazole (Protonix) 40 mg BID ORAL 04/08/20 09:00 05/08/20 08:59 04/09/20 17:11 Patient Own Medication (Patient's Own Med) 1 ea TID ORAL 04/09/20 13:00 05/09/20 12:59 04/09/20 17:12 Potassium Chloride (K-Dur) 40 meq TWICE A DAY ORAL 04/08/20 09:00 04/10/20 08:59 04/09/20 17:12 Prednisone (predniSONE) 5 mg DAILY ORAL 04/08/20 09:00 05/08/20 08:59 04/09/20 09:37 Tramadol HCl (Ultram) 50 mg Q4H PRN ORAL For Pain 04/09/20 17:00 04/16/20 16:59 04/10/20 05:52 Assessment/Plan Assessment/Plan ASSESSMENT UTI E/lyte imbalance : hypo Mg, hypo K JEWEL on CKD in setting of RCC Pulmonary HTN /CTEPH FTT, unable to care for himself Possible protein calorie malnutrition Metastatic colon Ca with lung mets ( biopsy proven)- on Nivolumab currently 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 Hx of perforated diverticulitis with multiple surgeries, s/p recent ileostomy takedown Moderate pulmonary HTN Chronic bronchitis HTN Obesity Incontinence associated dermatitis PLAN OF CARE MS floor O2 titrate to keep sat > 92 pulm toilet resume home inhaler continue a/c for DVT/PE s/p IVF Mg stabilized, K - still low, additional K per nephro recs continue diuretic/Bumex monitor renal parameters, lytes, avoid nephrotoxic, nephro follows, recommends conservative medical management and avoid nephrotoxics cardio follows prior ECHO with pEF empiric abx/Cefepime fup with cx UCX + Enterobacter, GPC continue cefepime, fup with final ID for GPC BCX NGTD stool C dif NGT home meds resumed surgery eval appreciated skin care as per surgeon recommendations SW for placement PT eval and Rx fall precautions dietary eval GI prophylaxis supportive care dc plan fro SNF placement case discussed and evaluated by supervising physician Sania Menard NP Apr 10, 2020 08:01 Eliazar Kumar MD Apr 10, 2020 16:00
[2020-04-10] MEDS: Bumetanide 1mg tab ORAL SCH ×4 (09:00→17:26)
[2020-04-10] MEDS: Cefepime 1gm/D5W 55ml IVPB SCH ×2 (09:33)
[2020-04-10] MEDS: Oxybutynin 5mg tab ORAL SCH (09:33)
[2020-04-10] MEDS: Eliquis 2.5mg tablet ORAL SCH ×2 (09:33→17:25)
[2020-04-10] MEDS: ADEMPAS 2.5 MG ORAL SCH ×3 (10:10→17:25)
--- NOTE | 2020-04-10 10:17 | NUR ---
NURSE NOTES: Spoke to Dr.De Borjas regarding Blood pressure. Per Dr.De Borjas:Give Adempas and hold Bumex. Give 500 cc NS bolus. Order noted and carried out.
--- NOTE | 2020-04-10 11:26 | Surgery Progress Note ---
Surgery Progress Note Subjective Additional Comments feels better wants more pain meds c/o leg pain edema improved dresings ostomy changed Objective Last 24 Hour Vital Signs Date Time Temp Pulse Resp B/P (MAP) Pulse Ox O2 Delivery O2 Flow Rate FiO2 04/10/20 10:27 75 18 97 Nasal Cannula 2.0 28 04/10/20 10:26 75 18 97 Nasal Cannula 2.0 28 04/10/20 08:00 97.9 81 18 87/56 (66) 94 04/10/20 07:24 97 Nasal Cannula 2.0 28 04/10/20 05:30 97.6 84 18 121/103 (109) 94 04/10/20 00:00 97.8 76 18 92/58 (69) 94 04/09/20 21:00 Nasal Cannula 2.0 04/09/20 20:14 96 Nasal Cannula 2.0 28 04/09/20 20:13 72 18 96 Nasal Cannula 2.0 28 04/09/20 20:11 71 18 96 Nasal Cannula 2.0 28 04/09/20 20:00 97.8 69 18 107/60 (76) 94 04/09/20 16:00 98.0 73 18 100/62 (75) 98 04/09/20 12:00 98.1 71 17 99/63 (75) 93 I&O Intake and Output 04/09/20 04/10/20 19:00 07:00 Intake Total 750 ml 450 ml Output Total 1750 ml 1250 ml Balance -1000 ml -800 ml Intake Oral 750 ml 450 ml Output Urine Total 1750 ml 1250 ml # Bowel Movements 1 Dressing: saturated Cardiovascular: RSR Respiratory: decreased breath sounds Abdomen: soft, non-tender, present bowel sounds Extremities: no tenderness, no cyanosis Plan Problems: (1) Hypomagnesemia (2) UTI (urinary tract infection) (3) Hypokalemia (4) Renal insufficiency (5) Unable to ambulate (6) Incontinence associated dermatitis Assessment & Plan: Patient status post recent ostomy takedown has been recovering at home but was declining difficulty with breathing and ambulating came to emergency department [facility] was admitted. He is still having difficulty with ambulating working with physical therapy. In his current state he is eating though he does not like the food and he is having loose bowel movements. Unfortunately is unable go to the bathroom is been sitting is with bowel movements and has noted some itching in the perirectal region on identification being noted to have gone associated dermatitis. I discussion with the patient regarding 2 bowel movements call light and assistance. Nursing staff aware. Please monitor for incontinence clean accordingly. Turn every 2 hours. Incentive spirometry. Offload pressures as possible. Keep heels elevated with pillows while in bed. Respiratory therapy. Thank you will follow the recommendations ostomy dressings BID with gauze packing and dressings Jeremiah Gonzales Apr 10, 2020 11:26
[2020-04-10 12:00] VITALS: BP 111/71
--- NOTE | 2020-04-10 13:18 | NUR ---
NURSE NOTES: Spoke to Dr.De Borjas regarding blood pressure and Hold Bumex for today. Order noted and carried out.
[2020-04-10 16:00] VITALS: BP 92/60
--- NOTE | 2020-04-10 16:05 | NUR ---
PT Note Attempted to see patient for treatment but patient states that he has excruciation LE pain and that MD has ordered ultrasound to BLE's to r/o DVT. Per RN, ultrasound has not yet been done. Will hold PT today and wait for US results.
[2020-04-10] MEDS: ALPRAZolam 0.5mg tab ORAL PRN (17:30)
--- NOTE | 2020-04-10 19:30 | NUR ---
NURSE HAND-OFF: Important Events on Shift: Venous duplex ordered Patient Status: Stable Diet: Cardiac diet Pending Orders: Venous duplex Pending Results/Labs: CBC, BMP on 04/11 Pending MD notification:N/A Latest Vital Signs: Temperature 97.7 , Pulse 79 , B/P 92 /60 , Respiratory Rate 18 , O2 SAT 97 , Nasal Cannula, O2 Flow Rate 2.0 . Vital Sign Comment: Stable Latest Chan Fall Score: 70 Fall Risk: High Risk Safety Measures: Call light Within Reach, Bed Alarm Zone 2, Side Rails Side Rails x3, Bed position Low and Locked. Fall Precautions: Yellow Socks Door Sign Patient Fall Education Report given to Paz RN and Bertrand VALENTIN. Patient in stable condition.
--- NOTE | 2020-04-10 19:45 | NUR ---
NURSE NOTES: Received report from Mingo VALENTIN. Patient is awake, alert, and oriented x4. On NC 2L, breathing is even and unlabored with no distress noted. Complains of bilateral legs and toe pain 02/05. Surgical dressing on stoma is intact and dry. Patient stated that MD changed the dressing about 2 hours ago. Optifoam on heels and left buttocks noted. IV right hand sailing lock with no bleeding noted. Bed low and locked. Call light within reach. Addendum: 04/10/20 at 2311 by Bertrand De Guzman RN Suprapubic delong catheter dressing intact and draining well. Dark red colored urine noted.
[2020-04-10 20:00] VITALS: BP 90/55
--- NOTE | 2020-04-10 20:30 | NUR ---
NURSE NOTES: Per patient state doctor changed the dressing on stoma around 1800. Dressing clean, dry, and intact. Will change tomorrow morning with dry gauze and optifoam covered.
[2020-04-11 04:00] VITALS: BP 99/57
[2020-04-11] MEDS: ALPRAZolam 0.5mg tab ORAL PRN ×2 (04:22→15:47)
[2020-04-11] MEDS: HYDROcodone/Acetamin 5/325 tab ORAL PRN ×3 (04:23→19:28)
--- NOTE | 2020-04-11 06:51 | NUR ---
NURSE NOTES: Stoma dressing changed with dry gauze and optifoam. Changed right heel optifoam and sacral optifoam. Dressing clean, dry, and intact.
[2020-04-11 07:03] LABS: HEMATOCRIT 25.6 % (42.0-52.0); HEMOGLOBIN 7.7 G/DL (14.2-18.0); MEAN CORPUSCULAR VOLUME 84 FL (80-99); PLATELET COUNT 156 K/UL (150-450); RED BLOOD COUNT 3.03 M/UL (4.70-6.10); RED CELL DISTRIBUTION WIDTH 20.2 % (11.6-14.8); WHITE BLOOD COUNT 3.6 K/UL (4.8-10.8)
[2020-04-11] MEDS: traMADol 50mg tab ORAL PRN ×3 (07:23→23:57)
--- NOTE | 2020-04-11 07:36 | NUR ---
NURSE HAND-OFF: Important Events on Shift:[pain management, dressings changed] Patient Status: [stable] Diet: [Cardiac] Pending Orders: [] Pending Results/Labs:[] Pending MD notification:[] Latest Vital Signs: Temperature 97.5 , Pulse 76 , B/P 99 /57 , Respiratory Rate 18 , O2 SAT 94 , Nasal Cannula, O2 Flow Rate 2.0 . Vital Sign Comment: [] Latest Chan Fall Score: 55 Fall Risk: High Risk Safety Measures: Call light Within Reach, Bed Alarm Zone 2, Side Rails Side Rails x3, Bed position Low and Locked. Fall Precautions: Yellow Socks Door Sign Patient Fall Education Report given to [Aba STUART RN].
[2020-04-11 07:41] LABS: CALCIUM 7.2 MG/DL (8.5-10.1); CREATININE 1.8 MG/DL (0.55-1.30); POTASSIUM 3.3 MMOL/L (3.5-5.1)
--- NOTE | 2020-04-11 07:45 | NUR ---
NURSE NOTES: Pt lying in bed w/bed in lowest position and call light within reach. Pt A&Ox4; on 2L NC; VSS; and in no apparent distress. IV site intact/asymptomatic & H/L'd; suprapubic catheter patent/draining; RLQ surgical dressing C/D/I; b/l heel/sacral redness present and left groin pressure ulcer noted. Will continue to monitor.
[2020-04-11 07:57] VITALS: BP 93/60
[2020-04-11] MEDS: Eliquis 2.5mg tablet ORAL SCH ×2 (08:36→17:40)
[2020-04-11] MEDS: Oxybutynin 5mg tab ORAL SCH (08:37)
[2020-04-11] MEDS: Cefepime 1gm/D5W 55ml IVPB SCH ×2 (08:38)
[2020-04-11] MEDS: ADEMPAS 2.5 MG ORAL SCH ×3 (08:38→17:42)
--- NOTE | 2020-04-11 09:30 | NUR ---
*-*DISCHARGE PLANNING*-* PATIENT HAS BEEN REFERRED TO: [facility] P: [phone] [facility] [place], NOT ACCEPTING ANY NEW ADMISSIONS UNTIL 04/21/2020 [facility] P: [phone] S/[facility] [place], WILL CALL BACK AFTER REVIEW
--- NOTE | 2020-04-11 10:01 | Pulmonology Progress Note ---
Subjective ROS Limited/Unobtainable: No Allergies: Coded Allergies: LEVOFLOXACIN (Verified Allergy, Severe, throat closes up, 12/15/19) MELOXICAM (Verified Allergy, Severe, throat closes up, 12/15/19) Subjective afebrile denies CP, SOB reports gen weakness pain BL and plantar foot improved, also this am had a shooting pain BL foot to ankle, analgesic changed , pain resolved pulse ox stable on 2l O2 via NC denies CP, SOB Hgb down to 7.7 noted ulcer left inner groin Objective Last 24 Hour Vital Signs Date Time Temp Pulse Resp B/P (MAP) Pulse Ox O2 Delivery O2 Flow Rate FiO2 04/11/20 07:57 97.3 77 20 93/60 (71) 97 04/11/20 07:40 95 Nasal Cannula 2.0 28 04/11/20 04:00 97.5 76 18 99/57 (71) 94 04/10/20 23:05 78 18 96 Nasal Cannula 2.0 28 04/10/20 23:05 78 18 96 Nasal Cannula 2.0 28 04/10/20 21:00 Nasal Cannula 2.0 04/10/20 20:00 98.2 81 18 90/55 (67) 93 04/10/20 19:24 97 Nasal Cannula 2.0 28 04/10/20 16:00 97.7 79 18 92/60 (71) 93 04/10/20 12:00 97.2 81 18 111/71 (84) 93 04/10/20 10:27 75 18 97 Nasal Cannula 2.0 28 04/10/20 10:26 75 18 97 Nasal Cannula 2.0 28 Intake and Output 04/10/20 04/11/20 19:00 07:00 Intake Total 800 ml 360 ml Output Total 500 ml 250 ml Balance 300 ml 110 ml Intake Oral 800 ml 360 ml Output Urine Total 500 ml 250 ml # Bowel Movements 2 Objective General Appearance: no apparent distress, alert oriented x3 Lines, tubes and drains: peripheral HEENT: normocephalic, atraumatic, anicteric, mucous membranes moist Neck: non-tender, supple Respiratory/Chest: lungs clear - with moderate air exchange , no accessory muscle use Cardiovascular/Chest: normal peripheral pulses, normal rate Abdomen: normal bowel sounds, non tender - obese , soft, other - left lower abdomen healed scar, right upper abdomen site of previous ileostomy with dressing, intact ; no evidence of infection , healing Genitourinary/Rectal: delong - with dark urine Extremities: normal range of motion, non-tender, no calf tenderness, normal capillary refill Neurologic: no motor/sensory deficits, alert, oriented x 3, responsive Musculoskeletal: normal muscle bulk Microbiology Date/Time Source Procedure Growth Status 04/08/20 15:20 Stool Clostridium difficile Toxin Assay - Final Complete Laboratory Tests 04/11/20 05:15: White Blood Count 3.6L, Red Blood Count 3.03L, Hemoglobin 7.7L, Hematocrit 25.6L , Mean Corpuscular Volume 84, Mean Corpuscular Hemoglobin 25.5L, Mean Corpuscular Hemoglobin Concent 30.2L, Red Cell Distribution Width 20.2H, Platelet Count 156, Mean Platelet Volume 5.7L, Neutrophils (%) (Auto) , Lymphocytes (%) (Auto) , Monocytes (%) (Auto) , Eosinophils (%) (Auto) , Basophils (%) (Auto) , Neutrophils % (Manual) [Pending], Lymphocytes % (Manual) [Pending], Platelet Estimate [Pending], Platelet Morphology [Pending], Sodium Level 133L, Potassium Level 3.3L, Chloride Level 100, Carbon Dioxide Level 28, Anion Gap 5, Blood Urea Nitrogen 15, Creatinine 1.8H, Estimat Glomerular Filtration Rate 36.9, Glucose Level 79, Calcium Level 7.2L Current Medications Medications (Trade) Dose Ordered Sig/Kevon Route PRN Reason Start Time Stop Time Status Last Admin Dose Admin Acetaminophen/ Hydrocodone Bitart ([place] 5/325) 1 tab Q6H PRN ORAL Severe Pain (Pain Scale 7-10) 04/10/20 07:00 04/17/20 06:59 04/11/20 04:23 Alprazolam (Xanax) 0.5 mg TID PRN ORAL For Anxiety 04/07/20 21:45 04/14/20 21:44 04/11/20 04:22 Apixaban (Eliquis) 2.5 mg BID ORAL 04/08/20 18:30 07/07/20 18:29 04/11/20 08:36 Atorvastatin Calcium (Lipitor) 10 mg BEDTIME ORAL 04/08/20 21:00 07/07/20 20:59 04/10/20 20:41 Budesonide/ Formoterol Fumarate (Symbicort 160/ 4.5) 2 puff BIDRT INH 04/08/20 10:00 07/07/20 09:59 04/10/20 22:00 Cefepime HCl 1 gm/ Dextrose 55 ml @ 110 mls/hr Q24H IVPB 04/09/20 09:00 04/16/20 08:59 04/11/20 08:38 Escitalopram Oxalate (Lexapro) 20 mg DAILY ORAL 04/08/20 09:00 05/08/20 08:59 04/11/20 08:37 Finasteride (Proscar) 5 mg DAILY ORAL 04/08/20 09:00 07/07/20 08:59 04/11/20 08:36 Hydroxyzine HCl (Atarax) 25 mg BIDPRN PRN ORAL Itching 04/08/20 06:00 05/07/20 21:44 Levothyroxine Sodium (Synthroid) 75 mcg DAILY@0630 ORAL 04/08/20 06:30 05/08/20 06:29 04/11/20 06:33 Levothyroxine Sodium (Synthroid) 100 mcg DAILY@0630 ORAL 04/08/20 06:30 05/08/20 06:29 04/11/20 06:34 Ondansetron HCl (Zofran ODT) 8 mg Q8H PRN ORAL Nausea & Vomiting 04/08/20 06:00 05/07/20 21:44 Oxybutynin Chloride (Ditropan) 10 mg DAILY ORAL 04/08/20 09:00 05/08/20 08:59 04/11/20 08:37 Pantoprazole (Protonix) 40 mg BID ORAL 04/08/20 09:00 05/08/20 08:59 04/11/20 08:36 Patient Own Medication (Patient's Own Med) 1 ea TID ORAL 04/09/20 13:00 05/09/20 12:59 04/11/20 08:38 Prednisone (predniSONE) 5 mg DAILY ORAL 04/08/20 09:00 05/08/20 08:59 04/11/20 08:36 Tramadol HCl (Ultram) 50 mg Q4H PRN ORAL For Pain 04/09/20 17:00 04/16/20 16:59 04/11/20 07:23 Assessment/Plan Assessment/Plan ASSESSMENT UTI E/lyte imbalance : hypo Mg, hypo K JEWEL on CKD in setting of RCC Pulmonary HTN /CTEPH FTT, unable to care for himself Possible protein calorie malnutrition Metastatic colon Ca with lung mets ( biopsy proven)- on Nivolumab currently 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 Hx of perforated diverticulitis with multiple surgeries, s/p recent ileostomy takedown Anemia of chronic disease Moderate pulmonary HTN Chronic bronchitis HTN Obesity Incontinence associated dermatitis PLAN OF CARE [facility] floor O2 titrate to keep sat > 92 pulm toilet resume home inhaler continue a/c for DVT/PE s/p IVF Mg stabilized, K - still low, additional K -defer to nephro continue diuretic/Bumex monitor renal parameters, lytes, avoid nephrotoxic, nephro follows, recommends conservative medical management and avoid nephrotoxics monitor HH with goal to keep Hgb > 7, consider Nephro defer to nephro Venous Duplex BLE cardio follows prior ECHO with pEF empiric abx/Cefepime fup with cx UCX + Enterobacter, GPC continue cefepime, fup with final ID for GPC BCX NGTD stool C dif NGT home meds resumed surgery follows skin care as per surgeon recommendations SW for placement PT eval and Rx fall precautions dietary eval GI prophylaxis supportive care dc plan fro SNF placement case discussed and evaluated by supervising physician Sania Menard NP Apr 11, 2020 10:01 Eliazar Kumar MD Apr 11, 2020 15:27
[2020-04-11 11:43] VITALS: BP 96/60
--- NOTE | 2020-04-11 11:45 | NUR ---
NURSE NOTES:WOUND CARE NOTES:Pt presented on admission with Full thickness Pressure Injury. Pt stated "I have had wound for a couple of weeks." Full thickness Pressure Injury L Ischium.(L)0.8cm x (W)2cm x (D)0.2cm. Base of wound is amber with scattered slough. .Edges are macerated. Small amt serosanguineous exudate. No odor noted. Periwound is erythematous. No elevation in skin temp noted. No evidence of sacral Skin breakdown noted. R and And L heels are firm ,dry and blanchable. 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 Pt stated he is not capable of repositioning self without staff asst. Pt also declined to be positioned on his side. Pt was offered AN APM/JIN Mattress but pt also declined Surface support mattress. Tx.Plan: Cleanse L Ischial wound with Saline. Apply Therahoney. Apply Moisture Barrier Paste periwound. Cover with Optifoam drsg. every 3 days and prn. Apply Moisture Barrier Paste to Sacrum. Cover with Optifoam drsg. Change every 3 days and prn. Apply Cavilon Skin Barrier to both heels. Cover each heel with Optifoam drsg. Change every 7 days and prn. Reposition at least every 2hours or as tolerated. Off-load heels with Pillow.
--- NOTE | 2020-04-11 12:29 | Nephrology Progress Note ---
Assessment/Plan Status: stable Assessment/Plan: A/P 1) CKD 3B- cr stable within baseline - hold IVFs and bumex 2) Hypokalemia- - continue to replace today 3) edema- improving with bumex 4) Metastatic colon Ca with lung mets ( biopsy proven)- on Nivolumab currently 5) Anemia of CKD- will check iron levels and give a dose of EPO Subjective Date patient seen: Apr 11, 2020 Time patient seen: 12:26 ROS Limited/Unobtainable: No Allergies: Coded Allergies: LEVOFLOXACIN (Verified Allergy, Severe, throat closes up, 12/15/19) MELOXICAM (Verified Allergy, Severe, throat closes up, 12/15/19) Subjective Patient feeling better and doing well with therapy Objective Last 24 Hour Vital Signs Date Time Temp Pulse Resp B/P (MAP) Pulse Ox O2 Delivery O2 Flow Rate FiO2 04/11/20 11:43 97.9 72 20 96/60 (72) 95 04/11/20 09:00 Nasal Cannula 2.0 04/11/20 07:57 97.3 77 20 93/60 (71) 97 04/11/20 07:40 95 Nasal Cannula 2.0 28 04/11/20 04:00 97.5 76 18 99/57 (71) 94 04/10/20 23:05 78 18 96 Nasal Cannula 2.0 28 04/10/20 23:05 78 18 96 Nasal Cannula 2.0 28 04/10/20 21:00 Nasal Cannula 2.0 04/10/20 20:00 98.2 81 18 90/55 (67) 93 04/10/20 19:24 97 Nasal Cannula 2.0 28 04/10/20 16:00 97.7 79 18 92/60 (71) 93 Intake and Output 04/10/20 04/11/20 19:00 07:00 Intake Total 800 ml 360 ml Output Total 500 ml 250 ml Balance 300 ml 110 ml Intake Oral 800 ml 360 ml Output Urine Total 500 ml 250 ml # Bowel Movements 2 Laboratory Tests 04/11/20 05:15: White Blood Count 3.6L, Red Blood Count 3.03L, Hemoglobin 7.7L, Hematocrit 25.6L , Mean Corpuscular Volume 84, Mean Corpuscular Hemoglobin 25.5L, Mean Corpuscular Hemoglobin Concent 30.2L, Red Cell Distribution Width 20.2H, Platelet Count 156, Mean Platelet Volume 5.7L, Neutrophils (%) (Auto) , Lymphocytes (%) (Auto) , Monocytes (%) (Auto) , Eosinophils (%) (Auto) , Basophils (%) (Auto) , Differential Total Cells Counted 100, Neutrophils % (Manual) 61, Lymphocytes % (Manual) 19L, Monocytes % (Manual) 18H, Eosinophils % (Manual) 2, Basophils % (Manual) 0, Band Neutrophils 0, Platelet Estimate Adequate, Platelet Morphology Normal, Hypochromasia 1+, Anisocytosis 2+, Sodium Level 133L, Potassium Level 3.3L, Chloride Level 100, Carbon Dioxide Level 28, Anion Gap 5, Blood Urea Nitrogen 15, Creatinine 1.8H, Estimat Glomerular Filtration Rate 36.9, Glucose Level 79, Calcium Level 7.2L Height (Feet): 5 Height (Inches): 7.00 Weight (Pounds): 223 General Appearance: no apparent distress, alert EENT: normal ENT inspection Neck: normal alignment Cardiovascular: normal rate, regular rhythm Respiratory/Chest: lungs clear, normal breath sounds Abdomen: non tender, soft Edema: 1+ Arm (L), 1+ Arm (R), 1+ Leg (L), 1+ Leg (R), 1+ Pedal (L), 1+ Pedal (R), 1+ Generalized Javan Hernandez MD Apr 11, 2020 12:29
--- NOTE | 2020-04-11 13:00 | Diagnostic Imaging Report ---
Indication: Reason For Exam: PAIN Technique: Grayscale and duplex images of the bilateral lower extremity veins Comparison: None Findings: Bilaterally, grayscale and duplex images demonstrate no evidence of intraluminal thrombus. Normal phasic Doppler waveforms, demonstrating normal augmentation response and no evidence of valvular insufficiency. Greater saphenous vein(s) and tibial veins are patent. Normal compressibility. Impression: Negative for evidence of lower extremity deep venous thrombosis bilaterally
--- NOTE | 2020-04-11 14:13 | NUR ---
CASE MANAGEMENT:REVIEW SI;UTI. FTT. METASTATIC COLON CA. 98.2 77 20 93/60 95% 2L NC H/H 7.7/25.6 NA 133 K+ 3.3 CR 1.8 CA 7.2 IS;EPOETIN KENDELL SQ M/W/F K-DUR PO ONCE NORCO PO Q6 PRN TRAMADOL PO Q4 PRN CEFEPIME IV QD ELIQUIS PO BID PREDNISONE PO QD PROTONIX PO BID XANAX PO TID PRN MED SURG STATUS DCP;FROM HOME DC PLANNING TO SNF
[2020-04-11 16:00] VITALS: BP 87/62
--- NOTE | 2020-04-11 16:13 | Surgery Progress Note ---
Surgery Progress Note Subjective Additional Comments duplex noted states feet 75% improved no n/v/fc does not want to move much cannot talk as states he doesnt want decubitus Objective Last 24 Hour Vital Signs Date Time Temp Pulse Resp B/P (MAP) Pulse Ox O2 Delivery O2 Flow Rate FiO2 04/11/20 11:43 97.9 72 20 96/60 (72) 95 04/11/20 09:00 Nasal Cannula 2.0 04/11/20 07:57 97.3 77 20 93/60 (71) 97 04/11/20 07:40 95 Nasal Cannula 2.0 28 04/11/20 04:00 97.5 76 18 99/57 (71) 94 04/10/20 23:05 78 18 96 Nasal Cannula 2.0 28 04/10/20 23:05 78 18 96 Nasal Cannula 2.0 28 04/10/20 21:00 Nasal Cannula 2.0 04/10/20 20:00 98.2 81 18 90/55 (67) 93 04/10/20 19:24 97 Nasal Cannula 2.0 28 I&O Intake and Output 04/10/20 04/11/20 19:00 07:00 Intake Total 800 ml 360 ml Output Total 500 ml 250 ml Balance 300 ml 110 ml Intake Oral 800 ml 360 ml Output Urine Total 500 ml 250 ml # Bowel Movements 2 Dressing: saturated Cardiovascular: RSR Respiratory: decreased breath sounds Abdomen: soft, non-tender, present bowel sounds, other, non-distended Extremities: no edema, no tenderness, no cyanosis Laboratory Tests Test 04/11/20 05:15 White Blood Count 3.6 K/UL (4.8-10.8) L Red Blood Count 3.03 M/UL (4.70-6.10) L Hemoglobin 7.7 G/DL (14.2-18.0) L Hematocrit 25.6 % (42.0-52.0) L Mean Corpuscular Volume 84 FL (80-99) Mean Corpuscular Hemoglobin 25.5 PG (27.0-31.0) L Mean Corpuscular Hemoglobin Concent 30.2 G/DL (32.0-36.0) L Red Cell Distribution Width 20.2 % (11.6-14.8) H Platelet Count 156 K/UL (150-450) Mean Platelet Volume 5.7 FL (6.5-10.1) L Neutrophils (%) (Auto) % (45.0-75.0) Lymphocytes (%) (Auto) % (20.0-45.0) Monocytes (%) (Auto) % (1.0-10.0) Eosinophils (%) (Auto) % (0.0-3.0) Basophils (%) (Auto) % (0.0-2.0) Differential Total Cells Counted 100 Neutrophils % (Manual) 61 % (45-75) Lymphocytes % (Manual) 19 % (20-45) L Monocytes % (Manual) 18 % (1-10) H Eosinophils % (Manual) 2 % (0-3) Basophils % (Manual) 0 % (0-2) Band Neutrophils 0 % (0-8) Platelet Estimate Adequate Platelet Morphology Normal Hypochromasia 1+ Anisocytosis 2+ Sodium Level 133 MMOL/L (136-145) L Potassium Level 3.3 MMOL/L (3.5-5.1) L Chloride Level 100 MMOL/L (98-107) Carbon Dioxide Level 28 MMOL/L (21-32) Anion Gap 5 mmol/L (5-15) Blood Urea Nitrogen 15 mg/dL (7-18) Creatinine 1.8 MG/DL (0.55-1.30) H Estimat Glomerular Filtration Rate 36.9 mL/min (>60) Glucose Level 79 MG/DL (74-106) Calcium Level 7.2 MG/DL (8.5-10.1) L Plan Problems: (1) Hypomagnesemia (2) UTI (urinary tract infection) (3) Hypokalemia (4) Renal insufficiency (5) Unable to ambulate (6) Incontinence associated dermatitis Assessment & Plan: Patient status post recent ostomy takedown has been recovering at home but was declining difficulty with breathing and ambulating came to emergency department [facility] was admitted. He is still having difficulty with ambulating working with physical therapy. In his current state he is eating though he does not like the food and he is having loose bowel movements. Unfortunately is unable go to the bathroom is been sitting is with bowel movements and has noted some itching in the perirectal region on identification being noted to have gone associated dermatitis. I discussion with the patient regarding 2 bowel movements call light and assistance. Nursing staff aware. Please monitor for incontinence clean accordingly. Turn every 2 hours. Incentive spirometry. Offload pressures as possible. Keep heels elevated with pillows while in bed. Respiratory therapy. Thank you will follow the recommendations ostomy dressings BID with gauze packing and dressings (7) Decubital ulcer Assessment & Plan: Pt presented on admission with Full thickness stage 3 Pressure Injury. Pt stated "I have had wound for a couple of weeks." Full thickness Pressure Injury L Ischium.(L)0.8cm x (W)2cm x (D)0.2cm. Base of wound is amber with scattered slough. .Edges are macerated. Small amt serosanguineous exudate. No odor noted. Periwound is erythematous. No elevation in skin temp noted. No evidence of sacral Skin breakdown noted. R and And L heels are firm ,dry and blanchable. 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 Pt stated he is not capable of repositioning self without staff asst. Pt also declined to be positioned on his side. Pt was offered AN APM/JIN Mattress but pt also declined Surface support mattress. Tx.Plan: Cleanse L Ischial wound with Saline. Apply Therahoney. Apply Moisture Barrier Paste periwound. Cover with Optifoam drsg. every 3 days and prn. Apply Moisture Barrier Paste to Sacrum. Cover with Optifoam drsg. Change every 3 days and prn. Apply Cavilon Skin Barrier to both heels. Cover each heel with Optifoam drsg. Change every 7 days and prn. Reposition at least every 2hours or as tolerated. Off-load heels with Pillow. Jeremiah Gonzales Apr 11, 2020 16:13
--- NOTE | 2020-04-11 16:21 | Cardiology Progress Note ---
Assessment/Plan Status: stable Assessment/Plan 1. Weakness, SOB, and failure to thrive 2. Colon CA with metastasis, on Nivolumab s/o ileostomy takedown 03/14/20 3. RCC with JEWEL on CKD 4. HFpEF, EF 69% per recent echo done at [facility] 03/14/2020 BNP 454 troponin negative Bumex for diuresis 5. HTN 6. 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 Repeat VUS negative for acute thrombus. Feeling ok today, SBP low normal. Subjective ROS Limited/Unobtainable: No Respiratory: Reports: shortness of breath Gastrointestinal/Abdominal: Reports: poor appetite Genitourinary: Reports: no symptoms Subjective Denies chest pain or worsening SOB Objective Last 24 Hour Vital Signs Date Time Temp Pulse Resp B/P (MAP) Pulse Ox O2 Delivery O2 Flow Rate FiO2 04/11/20 11:43 97.9 72 20 96/60 (72) 95 04/11/20 09:00 Nasal Cannula 2.0 04/11/20 07:57 97.3 77 20 93/60 (71) 97 04/11/20 07:40 95 Nasal Cannula 2.0 28 04/11/20 04:00 97.5 76 18 99/57 (71) 94 04/10/20 23:05 78 18 96 Nasal Cannula 2.0 28 04/10/20 23:05 78 18 96 Nasal Cannula 2.0 28 04/10/20 21:00 Nasal Cannula 2.0 04/10/20 20:00 98.2 81 18 90/55 (67) 93 04/10/20 19:24 97 Nasal Cannula 2.0 28 General Appearance: no apparent distress Neck: no JVD Rhythm: NSR Cardiovascular: normal rate, regular rhythm Respiratory/Chest: no respiratory distress, no accessory muscle use Extremities: moderate edema Neurologic: oriented x 3 Intake and Output 04/10/20 04/11/20 19:00 07:00 Intake Total 800 ml 360 ml Output Total 500 ml 250 ml Balance 300 ml 110 ml Intake Oral 800 ml 360 ml Output Urine Total 500 ml 250 ml # Bowel Movements 2 Laboratory Tests Test 04/11/20 05:15 White Blood Count 3.6 K/UL (4.8-10.8) L Red Blood Count 3.03 M/UL (4.70-6.10) L Hemoglobin 7.7 G/DL (14.2-18.0) L Hematocrit 25.6 % (42.0-52.0) L Mean Corpuscular Volume 84 FL (80-99) Mean Corpuscular Hemoglobin 25.5 PG (27.0-31.0) L Mean Corpuscular Hemoglobin Concent 30.2 G/DL (32.0-36.0) L Red Cell Distribution Width 20.2 % (11.6-14.8) H Platelet Count 156 K/UL (150-450) Mean Platelet Volume 5.7 FL (6.5-10.1) L Neutrophils (%) (Auto) % (45.0-75.0) Lymphocytes (%) (Auto) % (20.0-45.0) Monocytes (%) (Auto) % (1.0-10.0) Eosinophils (%) (Auto) % (0.0-3.0) Basophils (%) (Auto) % (0.0-2.0) Differential Total Cells Counted 100 Neutrophils % (Manual) 61 % (45-75) Lymphocytes % (Manual) 19 % (20-45) L Monocytes % (Manual) 18 % (1-10) H Eosinophils % (Manual) 2 % (0-3) Basophils % (Manual) 0 % (0-2) Band Neutrophils 0 % (0-8) Platelet Estimate Adequate Platelet Morphology Normal Hypochromasia 1+ Anisocytosis 2+ Sodium Level 133 MMOL/L (136-145) L Potassium Level 3.3 MMOL/L (3.5-5.1) L Chloride Level 100 MMOL/L (98-107) Carbon Dioxide Level 28 MMOL/L (21-32) Anion Gap 5 mmol/L (5-15) Blood Urea Nitrogen 15 mg/dL (7-18) Creatinine 1.8 MG/DL (0.55-1.30) H Estimat Glomerular Filtration Rate 36.9 mL/min (>60) Glucose Level 79 MG/DL (74-106) Calcium Level 7.2 MG/DL (8.5-10.1) L Beatriz Segovia PA-C Apr 11, 2020 16:21
--- NOTE | 2020-04-11 19:19 | NUR ---
NURSE HAND-OFF: Important Events on Shift: Pt worked w/PT; had a bowel movement; left ischial wound classified as stage III; weaning off O2 NC and sating 93% on RA. Patient Status: Stable Diet: Cardiac Pending Orders: None Pending Results/Labs: None Pending MD notification: None Latest Vital Signs: Temperature 98.1 , Pulse 76 , B/P 87 /62 , Respiratory Rate 20 , O2 SAT 93 , Nasal Cannula, O2 Flow Rate 2.0 . Vital Sign Comment: Stable Latest Chan Fall Score: 55 Fall Risk: High Risk Safety Measures: Call light Within Reach, Bed Alarm Zone 2, Side Rails Side Rails x3, Bed position Low and Locked. Fall Precautions: Yellow Socks Door Sign Patient Fall Education Report given to HOMERO Thurston.
--- NOTE | 2020-04-11 19:53 | NUR ---
NURSE NOTES: Received report from Cesar VALENTIN. Patient is awake, alert, and oriented x4. On room air, breathing is even and unlabored. Complains of pain 8/10 on bilateral legs. +1 pitting edema on bilateral lower extremities noted. RLQ dressing is dry and intact. Suprapubic delong intact and draining well. Optifoam on heels and sacral area intact. IV right hand sailing lock with no bleeding noted. Bed low and locked. Call light within reach.
[2020-04-11 20:00] VITALS: BP 113/60
[2020-04-11] MEDS: Epoetin Alfa-EPBX (NON ESRD)4000 units/ml vial SUBQ SCH (21:19)
[2020-04-11] MEDS: Epoetin Alfa-EPBX (NON ESRD) 3000 units/ml vial SUBQ SCH (21:20)
[2020-04-12] VITALS: BP 118/62
[2020-04-12] MEDS: HYDROcodone/Acetamin 5/325 tab ORAL PRN ×4 (02:06→20:34)
[2020-04-12 04:00] VITALS: BP 111/64
[2020-04-12] MEDS: traMADol 50mg tab ORAL PRN (04:47)
--- NOTE | 2020-04-12 05:02 | NUR ---
NURSE NOTES: Left ischium pressure injury stage 3 dressing changed with therahoney and optifoam. Dressing on bilateral heels changed with optifoam. RLQ stoma dressing changed with dry gauze and optofoam. Dressing dry, intact, and clean.
[2020-04-12 06:37] LABS: ANION GAP 6 mmol/L (5-15); CALCIUM 7.5 MG/DL (8.5-10.1); CARBON DIOXIDE 26 MMOL/L (21-32); CHLORIDE 101 MMOL/L (98-107); CREATININE 1.6 MG/DL (0.55-1.30); POTASSIUM 3.8 MMOL/L (3.5-5.1); SODIUM 133 MMOL/L (136-145)
[2020-04-12 06:39] LABS: % IRON SATURATION 11 % (15-50); IRON 15 ug/dL (50-175); TOTAL IRON BINDING CAPACITY 134 ug/dL (250-450)
--- NOTE | 2020-04-12 07:25 | NUR ---
NURSE HAND-OFF: Important Events on Shift:Pain management, dressing change Patient Status: Stable Diet: Cardiac Pending Orders: N/A Pending Results/Labs:N/A Pending MD notification:N/A Latest Vital Signs: Temperature 98.1 , Pulse 80 , B/P 111 /64 , Respiratory Rate 16 , O2 SAT 94 , Nasal Cannula, O2 Flow Rate 2.0 . Vital Sign Comment: VS stable Latest Chan Fall Score: 55 Fall Risk: High Risk Safety Measures: Call light Within Reach, Bed Alarm Zone 2, Side Rails Side Rails x3, Bed position Low and Locked. Fall Precautions: Yellow Socks Door Sign Patient Fall Education Report given to Sylvia VALENTIN.
[2020-04-12 07:28] LABS: BLOOD UREA NITROGEN 14 mg/dL (7-18)
--- NOTE | 2020-04-12 07:30 | NUR ---
NURSE NOTES: WALKING ROUNDS DONE WITH OUTGOING RN. PATIENT AWAKE IN BED HAVING BREAKFAST. QUESTIONS ANSWERED, NEEDS MET. DISCUSSED PLAN OF CARE FOR THE DAY. SKIN ASSESSMENT DONE.REFUSED VITALS; WILL RE-ATTEMPT. BED IN LOW AND LOCKED POSITION. CALL LIGHT WITHIN REACH.
[2020-04-12] MEDS: ADEMPAS 2.5 MG ORAL SCH ×3 (08:51→17:40)
[2020-04-12] MEDS: Oxybutynin 5mg tab ORAL SCH (08:51)
[2020-04-12] MEDS: Cefepime 1gm/D5W 55ml IVPB SCH ×2 (08:52)
[2020-04-12] MEDS: Eliquis 2.5mg tablet ORAL SCH ×2 (08:52→17:40)
--- NOTE | 2020-04-12 09:59 | Pulmonology Progress Note ---
Subjective ROS Limited/Unobtainable: No Allergies: Coded Allergies: LEVOFLOXACIN (Verified Allergy, Severe, throat closes up, 12/15/19) MELOXICAM (Verified Allergy, Severe, throat closes up, 12/15/19) Subjective afebrile denies CP, SOB reports gen weakness pain BL and plantar foot improved, off IVF and Bumex started on EPO Objective Last 24 Hour Vital Signs Date Time Temp Pulse Resp B/P (MAP) Pulse Ox O2 Delivery O2 Flow Rate FiO2 04/12/20 09:17 98.1 04/12/20 04:00 98.1 80 16 111/64 (80) 94 04/12/20 00:00 97.9 73 17 118/62 (80) 93 04/11/20 22:18 74 18 96 Nasal Cannula 2.0 28 04/11/20 22:17 74 18 96 Nasal Cannula 2.0 28 04/11/20 21:00 Nasal Cannula 2.0 04/11/20 20:00 98.0 77 17 113/60 (77) 91 04/11/20 19:58 96 Nasal Cannula 2.0 28 04/11/20 16:00 98.1 76 20 87/62 (70) 93 04/11/20 11:43 97.9 72 20 96/60 (72) 95 04/11/20 10:00 Nasal Cannula 2.0 28 04/11/20 10:00 Nasal Cannula 2.0 28 Intake and Output 04/11/20 04/12/20 19:00 07:00 Intake Total 480 ml 240 ml Output Total 350 ml 350 ml Balance 130 ml -110 ml Intake Oral 480 ml 240 ml Output Urine Total 350 ml 350 ml # Voids 1 # Bowel Movements 1 Objective General Appearance: no apparent distress, alert oriented x3 Lines, tubes and drains: peripheral HEENT: normocephalic, atraumatic, anicteric, mucous membranes moist Neck: non-tender, supple Respiratory/Chest: lungs clear - with moderate air exchange , no accessory muscle use Cardiovascular/Chest: normal peripheral pulses, normal rate Abdomen: normal bowel sounds, non tender - obese , soft, other - left lower abdomen healed scar, right upper abdomen site of previous ileostomy with dressing, intact ; no evidence of infection , healing Genitourinary/Rectal: delong - with dark urine Extremities: normal range of motion, non-tender, no calf tenderness, normal capillary refill Neurologic: no motor/sensory deficits, alert, oriented x 3, responsive Musculoskeletal: normal muscle bulk Laboratory Tests 04/12/20 05:30: Sodium Level 133L, Potassium Level 3.8, Chloride Level 101, Carbon Dioxide Level 26, Anion Gap 6, Blood Urea Nitrogen 14, Creatinine 1.6H, Estimat Glomerular Filtration Rate 42.2, Glucose Level 69L, Calcium Level 7.5L, Iron Level 15L, Total Iron Binding Capacity 134L, Percent Iron Saturation 11L, Unsaturated Iron Binding 119 Current Medications Medications (Trade) Dose Ordered Sig/Kevon Route PRN Reason Start Time Stop Time Status Last Admin Dose Admin Acetaminophen/ Hydrocodone Bitart ([place] 5/325) 1 tab Q6H PRN ORAL Severe Pain (Pain Scale 7-10) 04/10/20 07:00 04/17/20 06:59 04/12/20 08:47 Alprazolam (Xanax) 0.5 mg TID PRN ORAL For Anxiety 04/07/20 21:45 04/14/20 21:44 04/11/20 15:47 Apixaban (Eliquis) 2.5 mg BID ORAL 04/08/20 18:30 07/07/20 18:29 04/12/20 08:52 Atorvastatin Calcium (Lipitor) 10 mg BEDTIME ORAL 04/08/20 21:00 07/07/20 20:59 04/11/20 21:19 Budesonide/ Formoterol Fumarate (Symbicort 160/ 4.5) 2 puff BIDRT INH 04/08/20 10:00 07/07/20 09:59 04/11/20 22:16 Cefepime HCl 1 gm/ Dextrose 55 ml @ 110 mls/hr Q24H IVPB 04/09/20 09:00 04/16/20 08:59 04/12/20 08:52 Epoetin Paul (Epoetin Paul-EPBX(NON ESRD)) 3,000 unit SAT-SAT-SAT SUBQ 04/11/20 21:00 07/10/20 20:59 04/11/20 21:20 Epoetin Paul (Epoetin Pual-EPBX(NON ESRD)) 4,000 unit SAT-SAT-SAT SUBQ 04/11/20 21:00 07/10/20 20:59 04/11/20 21:19 Escitalopram Oxalate (Lexapro) 20 mg DAILY ORAL 04/08/20 09:00 05/08/20 08:59 04/12/20 08:51 Finasteride (Proscar) 5 mg DAILY ORAL 04/08/20 09:00 07/07/20 08:59 04/12/20 08:51 Hydroxyzine HCl (Atarax) 25 mg BIDPRN PRN ORAL Itching 04/08/20 06:00 05/07/20 21:44 Levothyroxine Sodium (Synthroid) 75 mcg DAILY@0630 ORAL 04/08/20 06:30 05/08/20 06:29 04/12/20 06:22 Levothyroxine Sodium (Synthroid) 100 mcg DAILY@0630 ORAL 04/08/20 06:30 05/08/20 06:29 04/12/20 06:22 Ondansetron HCl (Zofran ODT) 8 mg Q8H PRN ORAL Nausea & Vomiting 04/08/20 06:00 05/07/20 21:44 Oxybutynin Chloride (Ditropan) 10 mg DAILY ORAL 04/08/20 09:00 05/08/20 08:59 04/12/20 08:51 Pantoprazole (Protonix) 40 mg BID ORAL 04/08/20 09:00 05/08/20 08:59 04/12/20 08:51 Patient Own Medication (Patient's Own Med) 1 ea TID ORAL 04/09/20 13:00 05/09/20 12:59 04/12/20 08:51 Prednisone (predniSONE) 5 mg DAILY ORAL 04/08/20 09:00 05/08/20 08:59 04/12/20 08:51 Tramadol HCl (Ultram) 50 mg Q4H PRN ORAL For Pain 04/09/20 17:00 04/16/20 16:59 04/12/20 04:47 Assessment/Plan Assessment/Plan ASSESSMENT Polymicrobial UTI/ Enterobacter, Enterococci E/lyte imbalance : hypo Mg, hypo K JEWEL on CKD in setting of RCC Pulmonary HTN /CTEPH FTT, unable to care for himself Possible protein calorie malnutrition Metastatic colon Ca with lung mets ( biopsy proven)- on Nivolumab currently 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 Hx of perforated diverticulitis with multiple surgeries, s/p recent ileostomy takedown Anemia of chronic disease Moderate pulmonary HTN Chronic bronchitis HTN Obesity Incontinence associated dermatitis PLAN OF CARE MS floor O2 titrate to keep sat > 92 pulm toilet resume home inhaler continue a/c for DVT/PE s/p IVF and diuretic , CKD stable -as per nephro monitor renal parameters, lytes, avoid nephrotoxic, nephro recommends conservative medical management and avoid nephrotoxics monitor HH with goal to keep Hgb > 7, started on EPO iron panel with low iron and ferritin; will start Venofer Venous Duplex BLE NGT cardio follows prior ECHO with pEF empiric abx/Cefepime UCX + Enterobacter, Enterococci pt allergic to levaquin, due to renal failure hesitant to start Vanco and Zyvox has many interactions with his current drugs will get ID consult continue cefepime, BCX NGTD stool C dif NGT home meds resumed surgery follows skin care as per surgeon recommendations SW for placement PT eval and Rx fall precautions dietary eval GI prophylaxis supportive care dc plan for SNF placement case discussed and evaluated by supervising physician Sania Menard NP Apr 12, 2020 09:59 Eliazar Kumar MD Apr 12, 2020 21:20
--- NOTE | 2020-04-12 10:23 | NUR ---
*-*DISCHARGE PLANNING*-* [facility] P: [phone]
--- NOTE | 2020-04-12 10:33 | Cardiology Progress Note ---
Assessment/Plan Assessment/Plan 1. Weakness, SOB 2. Colon CA with metastasis, on Nivolumab s/o ileostomy takedown 03/14/20 3. RCC with JEWEL on CKD 4. HFpEF, EF 69% per recent echo done at [facility] 03/14/2020 BNP 454 troponin negative Bumex for diuresis 5. HTN 6. 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 7. Anemia of chronic disease Leg edema improved after diuresis and leg elevation, repeat VUS negative for acute thrombus. Feeling better today. Subjective ROS Limited/Unobtainable: No Cardiovascular: Reports: edema Respiratory: Reports: shortness of breath Gastrointestinal/Abdominal: Reports: poor appetite Genitourinary: Reports: no symptoms Subjective Sitting up in the chair. Denies chest pain or worsening SOB Objective Last 24 Hour Vital Signs Date Time Temp Pulse Resp B/P (MAP) Pulse Ox O2 Delivery O2 Flow Rate FiO2 04/12/20 09:17 98.1 04/12/20 09:00 Nasal Cannula 2.0 04/12/20 04:00 98.1 80 16 111/64 (80) 94 04/12/20 00:00 97.9 73 17 118/62 (80) 93 04/11/20 22:18 74 18 96 Nasal Cannula 2.0 28 04/11/20 22:17 74 18 96 Nasal Cannula 2.0 28 04/11/20 21:00 Nasal Cannula 2.0 04/11/20 20:00 98.0 77 17 113/60 (77) 91 04/11/20 19:58 96 Nasal Cannula 2.0 28 04/11/20 16:00 98.1 76 20 87/62 (70) 93 04/11/20 11:43 97.9 72 20 96/60 (72) 95 General Appearance: WD/WN, no apparent distress EENT: PERRL/EOMI Neck: supple, no JVD Rhythm: NSR Cardiovascular: normal rate, regular rhythm Respiratory/Chest: no respiratory distress, no accessory muscle use Abdomen: distended Extremities: moderate edema, pitting Neurologic: waxer operator II-XII grossly normal Intake and Output 04/11/20 04/12/20 19:00 07:00 Intake Total 480 ml 240 ml Output Total 350 ml 350 ml Balance 130 ml -110 ml Intake Oral 480 ml 240 ml Output Urine Total 350 ml 350 ml # Voids 1 # Bowel Movements 1 Laboratory Tests Test 04/12/20 05:30 Sodium Level 133 MMOL/L (136-145) L Potassium Level 3.8 MMOL/L (3.5-5.1) Chloride Level 101 MMOL/L (98-107) Carbon Dioxide Level 26 MMOL/L (21-32) Anion Gap 6 mmol/L (5-15) Blood Urea Nitrogen 14 mg/dL (7-18) Creatinine 1.6 MG/DL (0.55-1.30) H Estimat Glomerular Filtration Rate 42.2 mL/min (>60) Glucose Level 69 MG/DL (74-106) L Calcium Level 7.5 MG/DL (8.5-10.1) L Iron Level 15 ug/dL (50-175) L Total Iron Binding Capacity 134 ug/dL (250-450) L Percent Iron Saturation 11 % (15-50) L Unsaturated Iron Binding 119 ug/dL (112-346) Beatriz Segovia PA-C Apr 12, 2020 10:32
--- NOTE | 2020-04-12 11:33 | NUR ---
RD ASSESSMENT & RECOMMENDATIONS SEE CARE ACTIVITY FOR COMPLETE ASSESSMENT DAILY ESTIMATED NEEDS: Needs based on wound/ 76kg abw 25-30 kcals/kg 7487-2558 total kcals 1.25-1.8 g protein/kg 95-136 g total protein 25-30 mL/kg 5830-0362 total fluid mLs NUTRITION DIAGNOSIS: Increased protein and micronutrients intake needs R/T wound healing as evidenced by pt admitted w/ stage 3 wound @ L ischium. CURRENT DIET: CARDIAC PO DIET RECOMMENDATIONS: LOW NA/ texture as tolerated ADDITIONAL RECOMMENDATIONS: * Wound healing: Add MVI x 1, Vit C 500mg BID, ZnSO4 220mg QD x 10 days Kevan BID added to tray * Consider accuchecks for close BG monitoring (BG 69 12/15 AM) * Monitor lytes closely w/ diarrhea, replete as needed (K wnl, Na low)
[2020-04-12] MEDS: ALPRAZolam 0.5mg tab ORAL PRN ×2 (11:56→23:15)
[2020-04-12 12:00] VITALS: BP 93/60
--- NOTE | 2020-04-12 13:06 | Nephrology Progress Note ---
Assessment/Plan Status: stable Assessment/Plan: A/P 1) CKD 3B- cr stable within baseline, 1.6 - restart Bumex today 2) Hypokalemia- - continue to replace prn 3) edema- improving with bumex, restarted 4) Metastatic colon Ca with lung mets ( biopsy proven)- on Nivolumab currently - would like to continue Optivo 5) Anemia of CKD- EPO and Iron Subjective Date patient seen: Apr 12, 2020 Time patient seen: 13:04 ROS Limited/Unobtainable: No Allergies: Coded Allergies: LEVOFLOXACIN (Verified Allergy, Severe, throat closes up, 12/15/19) MELOXICAM (Verified Allergy, Severe, throat closes up, 12/15/19) Subjective Patient feeling better and doing well with therapy and continues to improve Objective Last 24 Hour Vital Signs Date Time Temp Pulse Resp B/P (MAP) Pulse Ox O2 Delivery O2 Flow Rate FiO2 04/12/20 12:00 98.0 78 20 93/60 (71) 93 04/12/20 09:17 98.1 04/12/20 09:00 Nasal Cannula 2.0 04/12/20 04:00 98.1 80 16 111/64 (80) 94 04/12/20 00:00 97.9 73 17 118/62 (80) 93 04/11/20 22:18 74 18 96 Nasal Cannula 2.0 28 04/11/20 22:17 74 18 96 Nasal Cannula 2.0 28 04/11/20 21:00 Nasal Cannula 2.0 04/11/20 20:00 98.0 77 17 113/60 (77) 91 04/11/20 19:58 96 Nasal Cannula 2.0 28 04/11/20 16:00 98.1 76 20 87/62 (70) 93 Intake and Output 04/11/20 04/12/20 18:59 06:59 Intake Total 480 ml 240 ml Output Total 350 ml 350 ml Balance 130 ml -110 ml Intake Oral 480 ml 240 ml Output Urine Total 350 ml 350 ml # Voids 1 # Bowel Movements 1 Laboratory Tests 04/12/20 05:30: Sodium Level 133L, Potassium Level 3.8, Chloride Level 101, Carbon Dioxide Level 26, Anion Gap 6, Blood Urea Nitrogen 14, Creatinine 1.6H, Estimat Glomerular Filtration Rate 42.2, Glucose Level 69L, Calcium Level 7.5L, Iron Level 15L, Total Iron Binding Capacity 134L, Percent Iron Saturation 11L, Unsaturated Iron Binding 119 Height (Feet): 5 Height (Inches): 7.00 Weight (Pounds): 223 General Appearance: no apparent distress, alert EENT: normal ENT inspection Neck: normal alignment, supple Cardiovascular: normal rate, regular rhythm Respiratory/Chest: lungs clear, normal breath sounds Abdomen: non tender, soft Edema: 1+ Arm (L), 1+ Arm (R), 1+ Leg (L), 1+ Leg (R), 1+ Pedal (L), 1+ Pedal (R), 1+ Generalized Javan Hernandez MD Apr 12, 2020 13:06
--- NOTE | 2020-04-12 13:26 | Consultation ---
History of Present Illness General Date patient seen: Apr 12, 2020 Time patient seen: 13:18 Chief Complaint: Generalized Weakness Referring physician: Dr. 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 He presents here with BLE swelling, worsening so much that he was unable to walk. He denies any fevers/chills, NVD, abd pain, CP, cough, SOB, sick contacts. Has SPC in place, no urine via penis. No changes in urination appearnce, smell or otherwise. no issues w/ SPC. [place]/ longtime partner who is healthy Overall since admission feels that BLE swelling is worse not better. Levofloxacin causes mouth swelling. Allergies: Coded Allergies: LEVOFLOXACIN (Verified Allergy, Severe, throat closes up, 12/15/19) MELOXICAM (Verified Allergy, Severe, throat closes up, 12/15/19) Medication History Scheduled Apixaban (Eliquis*), 5 MG PO DAILY, (Reported) Budesonide/Formoterol Fumarate (Symbicort 160-4.5 Mcg Inhaler), 2 PUFF IH BID, (Reported) Bumetanide (Bumetanide), 1 MG ORAL DAILY, (Reported) Cyclobenzaprine Hcl* (Flexeril*), 5 MG ORAL THREE TIMES A DAY, (Reported) Finasteride* (Proscar*), 5 MG ORAL DAILY, (Reported) Levothyroxine Sodium* (Synthroid*), 175 MCG ORAL DAILY, (Reported) Omeprazole Magnesium (Prilosec Otc), 20 MG ORAL DAILY, (Reported) Oxybutynin Chloride (Oxybutynin Chloride Er), 10 MG PO DAILY, (Reported) Prednisone* (Prednisone*), 5 MG ORAL DAILY, (Reported) Riociguat (Adempas), 2.5 MG PO TID, (Reported) Simvastatin (Zocor), 20 MG ORAL BEDTIME, (Reported) Venlafaxine Hcl* (Effexor*), 100 MG ORAL BID, (Reported) [cynocobalamin ], 1,000 MCG IM every 14 days, (Reported) [periactin], 4 MG PO TID, (Reported) [testosterone], 200 MG IM every 14 days, (Reported) Scheduled PRN Alprazolam* (Xanax*), 0.5 MG ORAL TID PRN for For Anxiety, (Reported) Hydroxyzine Hcl (Hydroxyzine Hcl), 25 MG PO BID PRN for Itching, (Reported) Ondansetron Odt* (Zofran Odt*), 8 MG ORAL Q8HR PRN for Nausea & Vomiting, (Reported) Tramadol Hcl* (Ultram*), 50 MG ORAL Q6H PRN for For Pain, (Reported) Miscellaneous Medications Desonide (Desowen), 60 GM TP, (Reported) Patient History Healthcare decision maker Resuscitation status Advanced Directive on File No Review of Systems ROS Narrative 10-point ROS neg except as noted in HPI Physical Exam Physical Exam Narrative Gen: NAD HEENT: NCAT, EOMI, PERRL CV: RRR Pulm: CTAB on RA Abd: Soft, NTND, healing RLQ ostomy takedown area : SPC in place, skin around insertion clean wo erythema nor discharge Ext: BLE 2+ edema Neuro: Awake, alert, interactive Last 24 Hour Vital Signs Date Time Temp Pulse Resp B/P (MAP) Pulse Ox O2 Delivery O2 Flow Rate FiO2 04/12/20 12:00 98.0 78 20 93/60 (71) 93 04/12/20 09:17 98.1 04/12/20 09:00 Nasal Cannula 2.0 04/12/20 04:00 98.1 80 16 111/64 (80) 94 04/12/20 00:00 97.9 73 17 118/62 (80) 93 04/11/20 22:18 74 18 96 Nasal Cannula 2.0 28 04/11/20 22:17 74 18 96 Nasal Cannula 2.0 28 04/11/20 21:00 Nasal Cannula 2.0 04/11/20 20:00 98.0 77 17 113/60 (77) 91 04/11/20 19:58 96 Nasal Cannula 2.0 28 04/11/20 16:00 98.1 76 20 87/62 (70) 93 l Intake and Output 04/11/20 04/12/20 19:00 07:00 Intake Total 480 ml 240 ml Output Total 350 ml 350 ml Balance 130 ml -110 ml Intake Oral 480 ml 240 ml Output Urine Total 350 ml 350 ml # Voids 1 # Bowel Movements 1 Laboratory Tests Test 04/12/20 05:30 Sodium Level 133 MMOL/L (136-145) L Potassium Level 3.8 MMOL/L (3.5-5.1) Chloride Level 101 MMOL/L (98-107) Carbon Dioxide Level 26 MMOL/L (21-32) Anion Gap 6 mmol/L (5-15) Blood Urea Nitrogen 14 mg/dL (7-18) Creatinine 1.6 MG/DL (0.55-1.30) H Estimat Glomerular Filtration Rate 42.2 mL/min (>60) Glucose Level 69 MG/DL (74-106) L Calcium Level 7.5 MG/DL (8.5-10.1) L Iron Level 15 ug/dL (50-175) L Total Iron Binding Capacity 134 ug/dL (250-450) L Percent Iron Saturation 11 % (15-50) L Unsaturated Iron Binding 119 ug/dL (112-346) Height (Feet): 5 Height (Inches): 7.00 Weight (Pounds): 223 Medications Current Medications Medications (Trade) Dose Ordered Sig/Kevon Route PRN Reason Start Time Stop Time Status Last Admin Dose Admin Acetaminophen/ Hydrocodone Bitart ([place] 5/325) 1 tab Q6H PRN ORAL Severe Pain (Pain Scale 7-10) 04/10/20 07:00 04/17/20 06:59 04/12/20 08:47 Alprazolam (Xanax) 0.5 mg TID PRN ORAL For Anxiety 04/07/20 21:45 04/14/20 21:44 04/12/20 11:56 Apixaban (Eliquis) 2.5 mg BID ORAL 04/08/20 18:30 07/07/20 18:29 04/12/20 08:52 Atorvastatin Calcium (Lipitor) 10 mg BEDTIME ORAL 04/08/20 21:00 07/07/20 20:59 04/11/20 21:19 Budesonide/ Formoterol Fumarate (Symbicort 160/ 4.5) 2 puff BIDRT INH 04/08/20 10:00 07/07/20 09:59 04/12/20 10:43 Bumetanide (Bumex) 2 mg BID IVP 04/12/20 18:00 05/12/20 17:59 Cefepime HCl 1 gm/ Dextrose 55 ml @ 110 mls/hr Q24H IVPB 04/09/20 09:00 04/16/20 08:59 04/12/20 08:52 Epoetin Paul (Epoetin Paul-EPBX(NON ESRD)) 3,000 unit SAT-SAT-SAT SUBQ 04/11/20 21:00 07/10/20 20:59 04/11/20 21:20 Epoetin Paul (Epoetin Paul-EPBX(NON ESRD)) 4,000 unit SAT-SAT-SAT SUBQ 04/11/20 21:00 07/10/20 20:59 04/11/20 21:19 Escitalopram Oxalate (Lexapro) 20 mg DAILY ORAL 04/08/20 09:00 05/08/20 08:59 04/12/20 08:51 Finasteride (Proscar) 5 mg DAILY ORAL 04/08/20 09:00 07/07/20 08:59 04/12/20 08:51 Hydroxyzine HCl (Atarax) 25 mg BIDPRN PRN ORAL Itching 04/08/20 06:00 05/07/20 21:44 Iron Sucrose 100 mg/Sodium Chloride 60 ml @ 240 mls/hr BEDTIME IVPB 04/12/20 21:00 04/16/20 21:14 Levothyroxine Sodium (Synthroid) 75 mcg DAILY@0630 ORAL 04/08/20 06:30 05/08/20 06:29 04/12/20 06:22 Levothyroxine Sodium (Synthroid) 100 mcg DAILY@0630 ORAL 04/08/20 06:30 05/08/20 06:29 04/12/20 06:22 Ondansetron HCl (Zofran ODT) 8 mg Q8H PRN ORAL Nausea & Vomiting 04/08/20 06:00 05/07/20 21:44 Oxybutynin Chloride (Ditropan) 10 mg DAILY ORAL 04/08/20 09:00 05/08/20 08:59 04/12/20 08:51 Pantoprazole (Protonix) 40 mg BID ORAL 04/08/20 09:00 1/10/21 08:59 04/12/20 08:51 Patient Own Medication (Patient's Own Med) 1 ea TID ORAL 04/09/20 13:00 05/09/20 12:59 04/12/20 08:51 Prednisone (predniSONE) 5 mg DAILY ORAL 04/08/20 09:00 05/08/20 08:59 04/12/20 08:51 Tramadol HCl (Ultram) 50 mg Q4H PRN ORAL For Pain 04/09/20 17:00 04/16/20 16:59 04/12/20 04:47 Assessment/Plan Assessment/Plan: 74yo M with: Afebrile Normal WBC R/o UTI SPC 04/07 BCx NTD UA 20-30 WBC, UCx +Enterobacter aerogenes & E.faecalis 04/08 C.dif neg CXR: Prominent mediastinum with apparent smooth caliber change of the mid trachea; mediastinum mass or lymphadenopathy is not excluded. BLE swelling US neg for DVT JEWEL on CKD PMH: pHTN/CTEPH Metastatic colon CA on nivolumab tx, last dose 2 months ago, overdue for next dose H/o DVT and PE H/o perforated diverticulitis, s/p multiple surgeries, s/p recent ileostomy takedown HTN Obesity Plan: Stop cefepime #4 Monitor off abx Would not treat +UCx. Pt's with SPC are always colonized with bacteria in their urine, and in the absence of any sx (pt without fevers/chills, leukocytosis nor urinary sx or abd pain) would not treat Monitor CBC/CMP Monitor resp status Monitor temp curve, hemodynamics D/w Sania Menard NP. Thank you for this consult. [facility] will continue to follow. Tammy Cruz M.D. Apr 12, 2020 13:26
--- NOTE | 2020-04-12 13:45 | Surgery Progress Note ---
Surgery Progress Note Subjective Additional Comments no acute events comfortable stable Objective Last 24 Hour Vital Signs Date Time Temp Pulse Resp B/P (MAP) Pulse Ox O2 Delivery O2 Flow Rate FiO2 04/12/20 12:00 98.0 78 20 93/60 (71) 93 04/12/20 09:17 98.1 04/12/20 09:00 Nasal Cannula 2.0 04/12/20 04:00 98.1 80 16 111/64 (80) 94 04/12/20 00:00 97.9 73 17 118/62 (80) 93 04/11/20 22:18 74 18 96 Nasal Cannula 2.0 28 04/11/20 22:17 74 18 96 Nasal Cannula 2.0 28 04/11/20 21:00 Nasal Cannula 2.0 04/11/20 20:00 98.0 77 17 113/60 (77) 91 04/11/20 19:58 96 Nasal Cannula 2.0 28 04/11/20 16:00 98.1 76 20 87/62 (70) 93 I&O Intake and Output 04/11/20 04/12/20 19:00 07:00 Intake Total 480 ml 240 ml Output Total 350 ml 350 ml Balance 130 ml -110 ml Intake Oral 480 ml 240 ml Output Urine Total 350 ml 350 ml # Voids 1 # Bowel Movements 1 Dressing: saturated Cardiovascular: RSR Respiratory: decreased breath sounds Abdomen: non-tender, present bowel sounds Extremities: no edema, no tenderness, no cyanosis Laboratory Tests Test 04/12/20 05:30 Sodium Level 133 MMOL/L (136-145) L Potassium Level 3.8 MMOL/L (3.5-5.1) Chloride Level 101 MMOL/L (98-107) Carbon Dioxide Level 26 MMOL/L (21-32) Anion Gap 6 mmol/L (5-15) Blood Urea Nitrogen 14 mg/dL (7-18) Creatinine 1.6 MG/DL (0.55-1.30) H Estimat Glomerular Filtration Rate 42.2 mL/min (>60) Glucose Level 69 MG/DL (74-106) L Calcium Level 7.5 MG/DL (8.5-10.1) L Iron Level 15 ug/dL (50-175) L Total Iron Binding Capacity 134 ug/dL (250-450) L Percent Iron Saturation 11 % (15-50) L Unsaturated Iron Binding 119 ug/dL (112-346) Plan Problems: (1) Hypomagnesemia (2) UTI (urinary tract infection) (3) Hypokalemia (4) Renal insufficiency (5) Unable to ambulate (6) Incontinence associated dermatitis Assessment & Plan: Patient status post recent ostomy takedown has been recoveri ng at home but was declining difficulty with breathing and ambulating came to emergency department [facility] was admitted. He is still having difficulty with ambulating working with physical therapy. In his current state he is eating though he does not like the food and he is having loose bowel movements. Unfortunately is unable go to the bathroom is been sitting is with bowel movements and has noted some itching in the perirectal region on identification being noted to have gone associated dermatitis. I discussion with the patient regarding 2 bowel movements call light and assistance. Nursing staff aware. Please monitor for incontinence clean accordingly. Turn every 2 hours. Incentive spirometry. Offload pressures as possible. Keep heels elevated with pillows while in bed. Respiratory therapy. Thank you will follow the recommendations ostomy dressings BID with gauze packing and dressings (7) Decubital ulcer Assessment & Plan: Pt presented on admission with Full thickness stage 3 Pressure Injury. Pt stated "I have had wound for a couple of weeks." Full thickness Pressure Injury L Ischium.(L)0.8cm x (W)2cm x (D)0.2cm. Base of wound is amber with scattered slough. .Edges are macerated. Small amt serosanguineous exudate. No odor noted. Periwound is erythematous. No elevation in skin temp noted. No evidence of sacral Skin breakdown noted. R and And L heels are firm ,dry and blanchable. 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 Pt stated he is not capable of repositioning self without staff asst. Pt also declined to be positioned on his side. Pt was offered AN APM/JIN Mattress but pt also declined Surface support mattress. Tx.Plan: Cleanse L Ischial wound with Saline. Apply Therahoney. Apply Moisture Barrier Paste periwound. Cover with Optifoam drsg. every 3 days and prn. Apply Moisture Barrier Paste to Sacrum. Cover with Optifoam drsg. C hange every 3 days and prn. Apply Cavilon Skin Barrier to both heels. Cover each heel with Optifoam drsg. Change every 7 days and prn. Reposition at least every 2hours or as tolerated. Off-load heels with Pillow. Jeremiah Gonzales Apr 12, 2020 13:45
--- NOTE | 2020-04-12 15:15 | NUR ---
NURSE NOTES: POSITIVE COVID RECIVED CALL FROM VALENTIN FROM [facility], PATIENT TESTED POSITIVE FOR COVID. CHARGE NURSE NOTIFIED AND PLACED CALL TO DR. CHANG (PCP) AND PANEL LAMINATOR TO INFORM. AWAITING TO TRANSFER WHEN BED BECOMES AVAILABLE. PATINE INFORMED. ISOLATION INITIATED.
--- NOTE | 2020-04-12 17:34 | NUR ---
*-*DISCHARGE PLANNING*-* PATIENT HAS BEEN BACK TO: [facility] P: [phone] S/W NEETA, WILL FOLLOW UP TOMORROW 04/13/2020
[2020-04-12] MEDS: Bumetanide 2.5mg/10ml Inj IVP SCH (17:40)
--- NOTE | 2020-04-12 18:30 | NUR ---
NURSE HAND-OFF: Important Events on Shift: PATIENT TRANSFERRED TO [facility]; COVID POSITIVE. Patient Status: STABLE Diet: REGULAR Pending Orders: DCP REHAB Pending Results/Labs:N/A Pending MD notification:N/A Latest Vital Signs: Temperature 98.0 , Pulse 78 , B/P 93 /60 , Respiratory Rate 20 , O2 SAT 93 , Nasal Cannula, O2 Flow Rate 2.0 . Vital Sign Comment: N/A Latest Chan Fall Score: 60 Fall Risk: High Risk Safety Measures: Call light Within Reach, Bed Alarm Zone 1, Side Rails Side Rails x3, Bed position Low and Locked. Fall Precautions: Door Sign Patient Fall Education Report given to JOANNE VALENTIN ( [facility])..
--- NOTE | 2020-04-12 18:58 | NUR ---
NURSE NOTES: Patient received from at 1840 from [facility]. Pt is alert and oriented x 4, verbal and able to make needs known, no shortness of breath, bed in lowest position with breaks engaged and alarm on, IV line on right hand present. On 02 via NC at 2 lpm. Suprapubic catheter in place. Belongings complete. Skin assessment done, no pressure ulcers noted. On contact and droplet isolation for COVID 19. Will continue to monitor and proceed with plan of care. Call light within reach.
--- NOTE | 2020-04-12 19:22 | NUR ---
NURSE HAND-OFF: Important Events on Shift:[New transfer from [facility]] Patient Status: [stable] Diet: [cardiac] Pending Orders: [] Pending Results/Labs:[] Pending MD notification:[] Latest Vital Signs: Temperature 98.0 , Pulse 78 , B/P 93 /60 , Respiratory Rate 20 , O2 SAT 93 , Nasal Cannula, O2 Flow Rate 2.0 . Vital Sign Comment: [] Latest Chan Fall Score: 60 Fall Risk: High Risk Safety Measures: Call light Within Reach, Bed Alarm Zone 1, Side Rails Side Rails x3, Bed position Low and Locked. Fall Precautions: Door Sign Patient Fall Education Report given to [HOMERO Berry].
[2020-04-12 20:00] VITALS: BP 101/58
--- NOTE | 2020-04-12 20:00 | NUR ---
NURSE NOTES: Received patient awake, alert, talkative, no SOB noted, resting in bed, comfortable.
[2020-04-12] MEDS: Iron Sucrose 100 MG in NS 55 ML IVPB SCH (20:05)
[2020-04-12] MEDS ORDERED: Iron Sucrose 100 MG in NS 55 ML IVPB SCH (21:00)
[2020-04-12 23:48] VITALS: BP 96/60
[2020-04-13] MEDS: traMADol 50mg tab ORAL PRN (01:12)
[2020-04-13 04:00] VITALS: BP 94/60
[2020-04-13] MEDS: HYDROcodone/Acetamin 5/325 tab ORAL PRN ×3 (05:17→17:11)
--- NOTE | 2020-04-13 07:11 | NUR ---
HAND-OFF: Report given to Zonia Bhatti RN.
--- NOTE | 2020-04-13 07:27 | NUR ---
NURSE NOTES: Report received from [facility]. Patient awake in bed, alert and oriented x 4, no SOB, bed in lowest position with breaks engaged and alarm on, denies any pain and discomfort at this time, IV line present on right hand, on contact and droplet precautions for COVID 19. Suprapubic catheter in place, on 02 via NC, will continue to monitor and proceed with plan of care, call light within reach.
[2020-04-13 07:29] LABS: HEMATOCRIT 26.5 % (42.0-52.0); HEMOGLOBIN 8.2 G/DL (14.2-18.0); MEAN CORPUSCULAR VOLUME 85 FL (80-99); PLATELET COUNT 214 K/UL (150-450); RED BLOOD COUNT 3.13 M/UL (4.70-6.10); RED CELL DISTRIBUTION WIDTH 19.9 % (11.6-14.8); WHITE BLOOD COUNT 2.4 K/UL (4.8-10.8)
[2020-04-13 07:59] LABS: CALCIUM 7.6 MG/DL (8.5-10.1); CREATININE 1.7 MG/DL (0.55-1.30); POTASSIUM 3.4 MMOL/L (3.5-5.1)
[2020-04-13 08:00] VITALS: BP 91/55
--- NOTE | 2020-04-13 08:19 | Infectious Diseases Prog Note ---
Assessment/Plan 74yo M with: COVID positive On RA, asymptomatic 04/12 Rapid COVID positive 04/13 COVID PCR ordered CXR ordered Afebrile Normal WBC R/o UTI SPC 04/07 BCx NTD UA 20-30 WBC, UCx +Enterobacter aerogenes & E.faecalis 04/08 C.dif neg CXR: Prominent mediastinum with apparent smooth caliber change of the mid trachea; mediastinum mass or lymphadenopathy is not excluded. BLE swelling US neg for DVT JEWEL on CKD PMH: pHTN/CTEPH Metastatic colon CA on nivolumab tx, last dose 2 months ago, overdue for next dose H/o DVT and PE H/o perforated diverticulitis, s/p multiple surgeries, s/p recent ileostomy takedown HTN Obesity Plan: Cont to monitor off abx For COVID, doing well on RA, no tx indicated at this time Check COVID PCR Repeat CXR to trend Would not treat +UCx. Pt's with SPC are always colonized with bacteria in their urine, and in the absence of any sx (pt without fevers/chills, leukocytosis nor urinary sx or abd pain) would not treat Monitor CBC/CMP Monitor resp status Monitor temp curve, hemodynamics D/w RN Thank you for this consult. [facility] will continue to follow. Subjective Allergies: Coded Allergies: LEVOFLOXACIN (Verified Allergy, Severe, throat closes up, 12/15/19) MELOXICAM (Verified Allergy, Severe, throat closes up, 12/15/19) AF WBC 2.4 COVID rapid test positive Denies any issues breathing Sitting up in chair, on RA BLE swelling comes and goes Overall feels his energy has improved Objective Last 24 Hour Vital Signs Date Time Temp Pulse Resp B/P (MAP) Pulse Ox O2 Delivery O2 Flow Rate FiO2 04/13/20 05:47 96.9 04/13/20 04:00 96.9 78 20 94/60 (71) 94 04/13/20 01:42 97.5 04/12/20 23:48 97.5 75 20 96/60 (72) 94 04/12/20 21:26 Nasal Cannula 2.0 04/12/20 21:06 98.0 04/12/20 20:37 72 18 95 Nasal Cannula 2.0 28 04/12/20 20:34 72 18 95 Nasal Cannula 2.0 28 04/12/20 20:34 95 Nasal Cannula 2.0 28 04/12/20 20:00 97.8 76 18 101/58 (72) 95 04/12/20 15:11 98.0 04/12/20 12:00 98.0 78 20 93/60 (71) 93 04/12/20 09:17 98.1 04/12/20 09:00 Nasal Cannula 2.0 28 04/12/20 09:00 Nasal Cannula 2.0 04/12/20 09:00 Nasal Cannula 2.0 28 Height (Feet): 5 Height (Inches): 7.00 Weight (Pounds): 223 Gen: NAD HEENT: NCAT Pulm: BL chest rise on RA Abd: Soft, NTND, +SPC Ext: 1-2+ BLE pitting edema Skin: No visible rashes, BLE venous stasis skin changes Neuro: Awake, alert, interactive Microbiology Date/Time Source Procedure Growth Status 04/12/20 13:34 Nasopharynx SARS-CoV-2 RdRp Gene Assay - Final Complete Laboratory Tests Test 04/13/20 06:22 White Blood Count 2.4 K/UL (4.8-10.8) L Red Blood Count 3.13 M/UL (4.70-6.10) L Hemoglobin 8.2 G/DL (14.2-18.0) L Hematocrit 26.5 % (42.0-52.0) L Mean Corpuscular Volume 85 FL (80-99) Mean Corpuscular Hemoglobin 26.3 PG (27.0-31.0) L Mean Corpuscular Hemoglobin Concent 31.0 G/DL (32.0-36.0) L Red Cell Distribution Width 19.9 % (11.6-14.8) H Platelet Count 214 K/UL (150-450) Mean Platelet Volume 6.0 FL (6.5-10.1) L Neutrophils (%) (Auto) % (45.0-75.0) Lymphocytes (%) (Auto) % (20.0-45.0) Monocytes (%) (Auto) % (1.0-10.0) Eosinophils (%) (Auto) % (0.0-3.0) Basophils (%) (Auto) % (0.0-2.0) Neutrophils % (Manual) Pending Lymphocytes % (Manual) Pending Platelet Estimate Pending Platelet Morphology Pending Erythrocyte Sedimentation Rate Pending D-Dimer Pending Sodium Level 138 MMOL/L (136-145) Potassium Level 3.4 MMOL/L (3.5-5.1) L Chloride Level 103 MMOL/L (98-107) Carbon Dioxide Level 30 MMOL/L (21-32) Anion Gap 5 mmol/L (5-15) Blood Urea Nitrogen 20 mg/dL (7-18) H Creatinine 1.7 MG/DL (0.55-1.30) H Estimat Glomerular Filtration Rate 39.4 mL/min (>60) Glucose Level 72 MG/DL (74-106) L Calcium Level 7.6 MG/DL (8.5-10.1) L Ferritin 121 NG/ML (8-388) Interleukin 6 (IL-6) Pending Current Medications Medications (Trade) Dose Ordered Sig/Kevon Route PRN Reason Start Time Stop Time Status Last Admin Dose Admin Acetaminophen/ Hydrocodone Bitart ([place] 5/325) 1 tab Q6H PRN ORAL Severe Pain (Pain Scale 7-10) 04/10/20 07:00 04/17/20 06:59 04/13/20 05:17 Alprazolam (Xanax) 0.5 mg TID PRN ORAL For Anxiety 04/07/20 21:45 04/14/20 21:44 04/12/20 23:15 Apixaban (Eliquis) 2.5 mg BID ORAL 04/08/20 18:30 07/07/20 18:29 04/12/20 17:40 Atorvastatin Calcium (Lipitor) 10 mg BEDTIME ORAL 04/08/20 21:00 07/07/20 20:59 04/12/20 20:05 Budesonide/ Formoterol Fumarate (Symbicort 160/ 4.5) 2 puff BIDRT INH 04/08/20 10:00 07/07/20 09:59 04/12/20 20:06 Bumetanide (Bumex) 2 mg BID IVP 04/12/20 18:00 05/12/20 17:59 04/12/20 17:40 Epoetin Paul (Epoetin Paul-EPBX(NON ESRD)) 3,000 unit SAT-SAT-SAT SUBQ 04/11/20 21:00 07/10/20 20:59 04/11/20 21:20 Epoetin Paul (Epoetin Paul-EPBX(NON ESRD)) 4,000 unit SUBQ 04/11/20 21:00 07/10/20 20:59 04/11/20 21:19 Escitalopram Oxalate (Lexapro) 20 mg DAILY ORAL 04/08/20 09:00 05/08/20 08:59 04/12/20 08:51 Finasteride (Proscar) 5 mg DAILY ORAL 04/08/20 09:00 07/07/20 08:59 04/12/20 08:51 Hydroxyzine HCl (Atarax) 25 mg BIDPRN PRN ORAL Itching 04/08/20 06:00 05/07/20 21:44 Iron Sucrose 100 mg/Sodium Chloride 60 ml @ 240 mls/hr BEDTIME IVPB 04/12/20 21:00 04/16/20 21:14 04/12/20 20:05 Levothyroxine Sodium (Synthroid) 75 mcg DAILY@0630 ORAL 04/08/20 06:30 05/08/20 06:29 04/13/20 05:17 Levothyroxine Sodium (Synthroid) 100 mcg DAILY@0630 ORAL 04/08/20 06:30 05/08/20 06:29 04/13/20 05:17 Ondansetron HCl (Zofran ODT) 8 mg Q8H PRN ORAL Nausea & Vomiting 04/08/20 06:00 05/07/20 21:44 Oxybutynin Chloride (Ditropan) 10 mg DAILY ORAL 04/08/20 09:00 05/08/20 08:59 04/12/20 08:51 Pantoprazole (Protonix) 40 mg BID ORAL 04/08/20 09:00 05/08/20 08:59 04/12/20 17:40 Patient Own Medication (Patient's Own Med) 1 ea TID ORAL 04/09/20 13:00 05/09/20 12:59 04/12/20 17:40 Prednisone (predniSONE) 5 mg DAILY ORAL 04/08/20 09:00 05/08/20 08:59 04/12/20 08:51 Tramadol HCl (Ultram) 50 mg Q4H PRN ORAL For Pain 04/09/20 17:00 04/16/20 16:59 04/13/20 01:12 Tammy Cruz M.D. Apr 13, 2020 08:19
--- NOTE | 2020-04-13 09:30 | Pulmonology Progress Note ---
Subjective ROS Limited/Unobtainable: No Allergies: Coded Allergies: LEVOFLOXACIN (Verified Allergy, Severe, throat closes up, 12/15/19) MELOXICAM (Verified Allergy, Severe, throat closes up, 12/15/19) Subjective afebrile denies CP, SOB rapid COVID 19 + pt does not believe he was exposed to anyone except medical personnel remains asymptomatic pulse ox stable on RA seen and evaluated by ID for UTI BP low this am Hgb better after EPO started Objective Last 24 Hour Vital Signs Date Time Temp Pulse Resp B/P (MAP) Pulse Ox O2 Delivery O2 Flow Rate FiO2 04/13/20 08:00 97.2 83 20 91/55 (67) 95 04/13/20 05:47 96.9 04/13/20 04:00 96.9 78 20 94/60 (71) 94 04/13/20 01:42 97.5 04/12/20 23:48 97.5 75 20 96/60 (72) 94 04/12/20 21:26 Nasal Cannula 2.0 04/12/20 21:06 98.0 04/12/20 20:37 72 18 95 Nasal Cannula 2.0 28 04/12/20 20:34 72 18 95 Nasal Cannula 2.0 28 04/12/20 20:34 95 Nasal Cannula 2.0 28 04/12/20 20:00 97.8 76 18 101/58 (72) 95 04/12/20 15:11 98.0 04/12/20 12:00 98.0 78 20 93/60 (71) 93 Intake and Output 04/12/20 04/13/20 19:00 07:00 Intake Total 1615 ml 660 ml Output Total 400 ml 780 ml Balance 1215 ml -120 ml Intake Oral 1560 ml 600 ml IV Total 55 ml 60 ml Output Urine Total 400 ml 780 ml # Bowel Movements 1 Objective General Appearance: no apparent distress, alert oriented x3 Lines, tubes and drains: peripheral HEENT: normocephalic, atraumatic, anicteric, mucous membranes moist Neck: non-tender, supple Respiratory/Chest: lungs clear - with moderate air exchange , no accessory muscle use Cardiovascular/Chest: normal peripheral pulses, normal rate Abdomen: normal bowel sounds, non tender - obese , soft, other - left lower abdomen healed scar, right upper abdomen site of previous ileostomy with dressing, intact ; no evidence of infection , healing Genitourinary/Rectal: s/p catheter - with dark urine Extremities: normal range of motion, non-tender, no calf tenderness, normal capillary refill Neurologic: no motor/sensory deficits, alert, oriented x 3, responsive Musculoskeletal: normal muscle bulk Microbiology Date/Time Source Procedure Growth Status 04/12/20 13:34 Nasopharynx SARS-CoV-2 RdRp Gene Assay - Final Complete Laboratory Tests 04/13/20 06:22: White Blood Count 2.4L, Red Blood Count 3.13L, Hemoglobin 8.2L, Hematocrit 26.5L , Mean Corpuscular Volume 85, Mean Corpuscular Hemoglobin 26.3L, Mean Corpuscular Hemoglobin Concent 31.0L, Red Cell Distribution Width 19.9H, Platelet Count 214, Mean Platelet Volume 6.0L, Neutrophils (%) (Auto) , Lymphocytes (%) (Auto) , Monocytes (%) (Auto) , Eosinophils (%) (Auto) , Basophils (%) (Auto) , Neutrophils % (Manual) [Pending], Lymphocytes % (Manual) [Pending], Platelet Estimate [Pending], Platelet Morphology [Pending], Erythrocyte Sedimentation Rate 54H, D-Dimer 1.46H, Sodium Level 138, Potassium Level 3.4L, Chloride Level 103, Carbon Dioxide Level 30, Anion Gap 5, Blood Urea Nitrogen 20H, Creatinine 1.7H, Estimat Glomerular Filtration Rate 39.4, Glucose Level 72L, Calcium Level 7.6L, Ferritin 121, Interleukin 6 (IL-6) [Pending] Current Medications Medications (Trade) Dose Ordered Sig/Kevon Route PRN Reason Start Time Stop Time Status Last Admin Dose Admin Acetaminophen/ Hydrocodone Bitart ([place] 5/325) 1 tab Q6H PRN ORAL Severe Pain (Pain Scale 7-10) 04/10/20 07:00 04/17/20 06:59 04/13/20 05:17 Alprazolam (Xanax) 0.5 mg TID PRN ORAL For Anxiety 04/07/20 21:45 04/14/20 21:44 04/12/20 23:15 Apixaban (Eliquis) 2.5 mg BID ORAL 04/08/20 18:30 07/07/20 18:29 04/12/20 17:40 Atorvastatin Calcium (Lipitor) 10 mg BEDTIME ORAL 04/08/20 21:00 07/07/20 20:59 04/12/20 20:05 Budesonide/ Formoterol Fumarate (Symbicort 160/ 4.5) 2 puff BIDRT INH 04/08/20 10:00 07/07/20 09:59 04/12/20 20:06 Bumetanide (Bumex) 2 mg BID IVP 04/12/20 18:00 05/12/20 17:59 04/12/20 17:40 Epoetin Paul (Epoetin Paul-EPBX(NON ESRD)) 3,000 unit SUBQ 04/11/20 21:00 07/10/20 20:59 04/11/20 21:20 Epoetin Paul (Epoetin Paul-EPBX(NON ESRD)) 4,000 unit SUBQ 04/11/20 21:00 07/10/20 20:59 04/11/20 21:19 Escitalopram Oxalate (Lexapro) 20 mg DAILY ORAL 04/08/20 09:00 05/08/20 08:59 04/12/20 08:51 Finasteride (Proscar) 5 mg DAILY ORAL 04/08/20 09:00 07/07/20 08:59 04/12/20 08:51 Hydroxyzine HCl (Atarax) 25 mg BIDPRN PRN ORAL Itching 04/08/20 06:00 05/07/20 21:44 Iron Sucrose 100 mg/Sodium Chloride 60 ml @ 240 mls/hr BEDTIME IVPB 04/12/20 21:00 04/16/20 21:14 04/12/20 20:05 Levothyroxine Sodium (Synthroid) 75 mcg DAILY@0630 ORAL 04/08/20 06:30 05/08/20 06:29 04/13/20 05:17 Levothyroxine Sodium (Synthroid) 100 mcg DAILY@0630 ORAL 04/08/20 06:30 05/08/20 06:29 04/13/20 05:17 Ondansetron HCl (Zofran ODT) 8 mg Q8H PRN ORAL Nausea & Vomiting 04/08/20 06:00 05/07/20 21:44 Oxybutynin Chloride (Ditropan) 10 mg DAILY ORAL 04/08/20 09:00 05/08/20 08:59 04/12/20 08:51 Pantoprazole (Protonix) 40 mg BID ORAL 04/08/20 09:00 05/08/20 08:59 04/12/20 17:40 Patient Own Medication (Patient's Own Med) 1 ea TID ORAL 04/09/20 13:00 05/09/20 12:59 04/12/20 17:40 Prednisone (predniSONE) 5 mg DAILY ORAL 04/08/20 09:00 05/08/20 08:59 04/12/20 08:51 Sodium Chloride 1,000 ml @ 999 mls/hr Q1H1M ONCE IV 04/13/20 09:30 04/13/20 10:30 UNV Tramadol HCl (Ultram) 50 mg Q4H PRN ORAL For Pain 04/09/20 17:00 04/16/20 16:59 04/13/20 01:12 Assessment/Plan Assessment/Plan ASSESSMENT JEWEL on CKD in setting of RCC Pulmonary HTN /CTEPH COVID 19 infection FTT, unable to care for himself Possible protein calorie malnutrition Metastatic colon Ca with lung mets ( biopsy proven)- on Nivolumab currently Polymicrobial UTI/ Enterobacter, Enterococci -> asymptomatic bacteria / chronic suprapubic catheter E/lyte imbalance : hypo Mg, hypo K Hypotension 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 Hx of perforated diverticulitis with multiple surgeries, s/p recent ileostomy takedown Anemia of chronic disease Moderate pulmonary HTN Chronic bronchitis HTN Obesity Incontinence associated dermatitis PLAN OF CARE MS floor O2 titrate to keep sat > 92 pulm toilet resume home inhaler continue a/c for DVT/PE s/p IVF and diuretic , CKD stable -as per nephro monitor renal parameters, lytes, avoid nephrotoxic, nephro recommends conservative medical management and avoid nephrotoxics monitor HH with goal to keep Hgb > 7, started on EPO, iron panel with low iron and ferritin; on Venofer Hgb better Venous Duplex BLE NGT cardio follows prior ECHO with pEF BP low, will give 1 l fluid bolus, off Bumex ( discussed with nephro) was initially on cefepime UCX + Enterobacter, Enterococci BCX NGTD stool C dif NGT ID eval appreciated per ID asymptomatic bacteriuria, given s/p catheter ; keep off abx rapid COVID 19 04/12 positive isolation pulse ox stable on RA, remains asymptomatic will repeat COVID 19 by PCR ( discussed with ID) monitor resp status closely inflam markers not impressive IL6 ordered ( not sure if still perform in this facility as send out test) along with CRP in am home meds resumed surgery follows skin care as per surgeon recommendations SW for placement PT eval and Rx fall precautions dietary eval GI prophylaxis supportive care dc plan for SNF placement case discussed and evaluated by supervising physician Sania Menard NP Apr 13, 2020 09:30 Eliazar Kumar MD Apr 13, 2020 20:43
[2020-04-13] MEDS: Oxybutynin 5mg tab ORAL SCH (09:33)
[2020-04-13] MEDS: Eliquis 2.5mg tablet ORAL SCH ×2 (09:34→17:10)
[2020-04-13] MEDS: ADEMPAS 2.5 MG ORAL SCH ×3 (09:35→17:13)
[2020-04-13] MEDS: Bumetanide 2.5mg/10ml Inj IVP SCH (09:35)
--- NOTE | 2020-04-13 10:12 | NUR ---
RADIOLOGY DEPT., CHEST X-RAY DONE.-P.DYE
[2020-04-13] MEDS: ALPRAZolam 0.5mg tab ORAL PRN ×3 (11:02→22:13)
[2020-04-13 12:00] VITALS: BP 86/54
--- NOTE | 2020-04-13 12:15 | NUR ---
*-*DISCHARGE PLANNING*-* PATIENT HAS BEEN REFERRED REFERRED TO: [facility] P: [phone] S/W LALI, CANNOT ACCEPT THIS COVID POSITIVE PATIENT.
--- NOTE | 2020-04-13 12:17 | NUR ---
*-*DISCHARGE PLANNING*-* PATIENT HAS BEEN ACCEPTED TO: [facility] P: [phone] ROOM# 16.
--- NOTE | 2020-04-13 14:44 | NUR ---
CASE MANAGEMENT:REVIEW SI;FTT. METASTATIC CA. COVID-19 VIRAL INFECTION 96.9 78 20 94/60 94% 2L NC WBC 2.4 H/H 8.2/26.5 K+ 3.4 BUN 20 CR 1.7 IS;IVF NS BOLUS ONCE VENOFER IV EPOETIN KENDELL SC M/W/F NORCO PO Q6 PRN SYMBICORT INH BID PREDNISONE PO QD PROTONIX PO BID XANAX PO TID PRN MED SURG STATUS DCP;FROM HOME DC PLAN TO SNF
--- NOTE | 2020-04-13 15:24 | Surgery Progress Note ---
Surgery Progress Note Subjective Symptoms: improved Additional Comments ambulatory no n/v working with pt eating well Objective Last 24 Hour Vital Signs Date Time Temp Pulse Resp B/P (MAP) Pulse Ox O2 Delivery O2 Flow Rate FiO2 04/13/20 12:00 97.8 78 18 86/54 (65) 93 04/13/20 11:33 97.2 04/13/20 09:33 Nasal Cannula 2.0 28 04/13/20 09:33 Nasal Cannula 2.0 28 04/13/20 09:00 Nasal Cannula 2.0 04/13/20 08:00 97.2 83 20 91/55 (67) 95 04/13/20 07:20 94 Nasal Cannula 2.0 28 04/13/20 05:47 96.9 04/13/20 04:00 96.9 78 20 94/60 (71) 94 04/13/20 01:42 97.5 04/12/20 23:48 97.5 75 20 96/60 (72) 94 04/12/20 21:26 Nasal Cannula 2.0 04/12/20 21:06 98.0 04/12/20 20:37 72 18 95 Nasal Cannula 2.0 28 04/12/20 20:34 72 18 95 Nasal Cannula 2.0 28 04/12/20 20:34 95 Nasal Cannula 2.0 28 04/12/20 20:00 97.8 76 18 101/58 (72) 95 I&O Intake and Output 04/12/20 04/13/20 18:59 06:59 Intake Total 1615 ml 660 ml Output Total 400 ml 780 ml Balance 1215 ml -120 ml Intake Oral 1560 ml 600 ml IV Total 55 ml 60 ml Output Urine Total 400 ml 780 ml # Bowel Movements 1 Dressing: saturated Cardiovascular: RSR Respiratory: decreased breath sounds Abdomen: non-tender, present bowel sounds Extremities: edema, no tenderness, no cyanosis Laboratory Tests Test 04/13/20 06:22 White Blood Count 2.4 K/UL (4.8-10.8) L Red Blood Count 3.13 M/UL (4.70-6.10) L Hemoglobin 8.2 G/DL (14.2-18.0) L Hematocrit 26.5 % (42.0-52.0) L Mean Corpuscular Volume 85 FL (80-99) Mean Corpuscular Hemoglobin 26.3 PG (27.0-31.0) L Mean Corpuscular Hemoglobin Concent 31.0 G/DL (32.0-36.0) L Red Cell Distribution Width 19.9 % (11.6-14.8) H Platelet Count 214 K/UL (150-450) Mean Platelet Volume 6.0 FL (6.5-10.1) L Neutrophils (%) (Auto) % (45.0-75.0) Lymphocytes (%) (Auto) % (20.0-45.0) Monocytes (%) (Auto) % (1.0-10.0) Eosinophils (%) (Auto) % (0.0-3.0) Basophils (%) (Auto) % (0.0-2.0) Differential Total Cells Counted 100 Neutrophils % (Manual) 57 % (45-75) Lymphocytes % (Manual) 35 % (20-45) Monocytes % (Manual) 6 % (1-10) Eosinophils % (Manual) 2 % (0-3) Basophils % (Manual) 0 % (0-2) Band Neutrophils 0 % (0-8) Platelet Estimate Adequate Platelet Morphology Normal Hypochromasia 1+ Anisocytosis 1+ Erythrocyte Sedimentation Rate 54 MM/HR (0-20) H D-Dimer 1.46 mg/L FEU (0.00-0.49) H Sodium Level 138 MMOL/L (136-145) Potassium Level 3.4 MMOL/L (3.5-5.1) L Chloride Level 103 MMOL/L (98-107) Carbon Dioxide Level 30 MMOL/L (21-32) Anion Gap 5 mmol/L (5-15) Blood Urea Nitrogen 20 mg/dL (7-18) H Creatinine 1.7 MG/DL (0.55-1.30) H Estimat Glomerular Filtration Rate 39.4 mL/min (>60) Glucose Level 72 MG/DL (74-106) L Calcium Level 7.6 MG/DL (8.5-10.1) L Ferritin 121 NG/ML (8-388) Interleukin 6 (IL-6) Pending Plan Problems: (1) Hypomagnesemia (2) UTI (urinary tract infection) (3) Hypokalemia (4) Renal insufficiency (5) Unable to ambulate (6) Incontinence associated dermatitis Assessment & Plan: Patient status post recent ostomy takedown has been recovering at home but was declining difficulty with breathing and ambulating came to emergency department [facility] was admitted. He is still having difficulty with ambulating working with physical therapy. In his current state he is eating though he does not like the food and he is having loose bowel movements. Unfortunately is unable go to the bathroom is been sitting is with bowel movements and has noted some itching in the perirectal region on identification being noted to have gone associated dermatitis. I discussion with the patient regarding 2 bowel movements call light and assistance. Nursing staff aware. Please monitor for incontinence clean accordingly. Turn every 2 hours. Incentive spirometry. Offload pressures as possible. Keep heels el evated with pillows while in bed. Respiratory therapy. Thank you will follow the recommendations ostomy dressings BID with gauze packing and dressings (7) Decubital ulcer Assessment & Plan: Pt presented on admission with Full thickness stage 3 Pressure Injury. Pt stated "I have had wound for a couple of weeks." Full thickness Pressure Injury L Ischium.(L)0.8cm x (W)2cm x (D)0.2cm. Base of wound is amber with scattered slough. .Edges are macerated. Small amt s erosanguineous exudate. No odor noted. Periwound is erythematous. No elevation in skin temp noted. No evidence of sacral Skin breakdown noted. R and And L heels are firm ,dry and blanchable. 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 Pt stated he is not capable of repositioning self without staff asst. Pt also declined to be positioned on his side. Pt was offered AN APM/JIN Mattress but pt also declined Surface support mattress. Tx.Plan: Cleanse L Ischial wound with Saline. Apply Therahoney. Apply Moisture Barrier Paste periwound. Cover with Optifoam drsg. every 3 days and prn. Apply Moisture Barrier Paste to Sacrum. Cover with Optifoam drsg. Change every 3 days and prn. Apply Cavilon Skin Barrier to both heels. Cover each heel with Optifoam drsg. Change every 7 days and prn. Reposition at least every 2hours or as tolerated. Off-load heels with Pillow. Benyamini,Jeremiah Apr 13, 2020 15:24
--- NOTE | 2020-04-13 15:31 | Diagnostic Imaging Report ---
Indication: Cough Technique: One view of the chest Comparison: 04/07/2020 Findings: Linear right lung opacities likely represent areas of scarring. No definite acute infiltrates. No effusions. Heart size is upper limits of normal. Mild narrowing of the trachea is again noted No significant interim change Impression: No definite acute process Mild tracheal narrowing, could indicate extrinsic compression from adenopathy, among other possibilities. As previously recommended, consider further evaluation with contrast chest CT
--- NOTE | 2020-04-13 15:49 | NUR ---
NURSE NOTES: Patient has an order for IV bolus for low BP, IV line on both side are very positional and pt also a hard stick. Patient was educated not to move around too much to prevent IV flow interruptions but pt can not keep still most of the time thus delaying the bolus. Will continue to monitor. Addendum: 04/13/20 at 1732 by Zonia Bhatti RN Patient is upset due to constant beeping of IV machine, explained to pt that he needs to keep still for a brief moment until IV bolus is finished. Patient stated "I dont wanna hear this beeping anymore, take that thing away from me" Re-education provided. LIDA moody made aware and will continue to monitor this patient.
[2020-04-13 16:30] VITALS: BP 90/54
--- NOTE | 2020-04-13 17:00 | Cardiology Progress Note ---
Assessment/Plan Assessment/Plan 1. New COVID-19 2. Colon CA with metastasis, on Nivolumab s/o ileostomy takedown 03/14/20 3. RCC with JEWEL on CKD 4. HFpEF, EF 69% per recent echo done at [facility] 03/14/2020 BNP 454 troponin negative Bumex for diuresis 5. HTN 6. 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 7. Anemia of chronic disease 8. SOB and weakness at admission No acute distress. Leg edema improved after diuresis and leg elevation, VUS negative for acute thrombus. Subjective ROS Limited/Unobtainable: No Cardiovascular: Reports: edema Respiratory: Reports: shortness of breath Gastrointestinal/Abdominal: Reports: poor appetite Genitourinary: Reports: no symptoms Subjective COVID-10 positive today Objective Last 24 Hour Vital Signs Date Time Temp Pulse Resp B/P (MAP) Pulse Ox O2 Delivery O2 Flow Rate FiO2 04/13/20 16:30 97.0 78 18 90/54 (66) 96 04/13/20 12:00 97.8 78 18 86/54 (65) 93 04/13/20 11:33 97.2 04/13/20 09:33 Nasal Cannula 2.0 28 04/13/20 09:33 Nasal Cannula 2.0 28 04/13/20 09:00 Nasal Cannula 2.0 04/13/20 08:00 97.2 83 20 91/55 (67) 95 04/13/20 07:20 94 Nasal Cannula 2.0 28 04/13/20 05:47 96.9 04/13/20 04:00 96.9 78 20 94/60 (71) 94 04/13/20 01:42 97.5 04/12/20 23:48 97.5 75 20 96/60 (72) 94 04/12/20 21:26 Nasal Cannula 2.0 04/12/20 21:06 98.0 04/12/20 20:37 72 18 95 Nasal Cannula 2.0 28 04/12/20 20:34 72 18 95 Nasal Cannula 2.0 28 04/12/20 20:34 95 Nasal Cannula 2.0 28 04/12/20 20:00 97.8 76 18 101/58 (72) 95 General Appearance: no apparent distress EENT: PERRL/EOMI Neck: no JVD Rhythm: NSR Cardiovascular: normal rate, regular rhythm Respiratory/Chest: no respiratory distress, no accessory muscle use Abdomen: soft Extremities: moderate edema Neurologic: manufacturing assembler II-XII grossly normal Intake and Output 04/12/20 04/13/20 19:00 07:00 Intake Total 1615 ml 660 ml Output Total 400 ml 780 ml Balance 1215 ml -120 ml Intake Oral 1560 ml 600 ml IV Total 55 ml 60 ml Output Urine Total 400 ml 780 ml # Bowel Movements 1 Laboratory Tests Test 04/13/20 06:22 White Blood Count 2.4 K/UL (4.8-10.8) L Red Blood Count 3.13 M/UL (4.70-6.10) L Hemoglobin 8.2 G/DL (14.2-18.0) L Hematocrit 26.5 % (42.0-52.0) L Mean Corpuscular Volume 85 FL (80-99) Mean Corpuscular Hemoglobin 26.3 PG (27.0-31.0) L Mean Corpuscular Hemoglobin Concent 31.0 G/DL (32.0-36.0) L Red Cell Distribution Width 19.9 % (11.6-14.8) H Platelet Count 214 K/UL (150-450) Mean Platelet Volume 6.0 FL (6.5-10.1) L Neutrophils (%) (Auto) % (45.0-75.0) Lymphocytes (%) (Auto) % (20.0-45.0) Monocytes (%) (Auto) % (1.0-10.0) Eosinophils (%) (Auto) % (0.0-3.0) Basophils (%) (Auto) % (0.0-2.0) Differential Total Cells Counted 100 Neutrophils % (Manual) 57 % (45-75) Lymphocytes % (Manual) 35 % (20-45) Monocytes % (Manual) 6 % (1-10) Eosinophils % (Manual) 2 % (0-3) Basophils % (Manual) 0 % (0-2) Band Neutrophils 0 % (0-8) Platelet Estimate Adequate Platelet Morphology Normal Hypochromasia 1+ Anisocytosis 1+ Erythrocyte Sedimentation Rate 54 MM/HR (0-20) H D-Dimer 1.46 mg/L FEU (0.00-0.49) H Sodium Level 138 MMOL/L (136-145) Potassium Level 3.4 MMOL/L (3.5-5.1) L Chloride Level 103 MMOL/L (98-107) Carbon Dioxide Level 30 MMOL/L (21-32) Anion Gap 5 mmol/L (5-15) Blood Urea Nitrogen 20 mg/dL (7-18) H Creatinine 1.7 MG/DL (0.55-1.30) H Estimat Glomerular Filtration Rate 39.4 mL/min (>60) Glucose Level 72 MG/DL (74-106) L Calcium Level 7.6 MG/DL (8.5-10.1) L Ferritin 121 NG/ML (8-388) Interleukin 6 (IL-6) Pending Microbiology Date/Time Source Procedure Growth Status 04/12/20 13:34 Nasopharynx SARS-CoV-2 RdRp Gene Assay - Final Complete Beatriz Segovia PA-C Apr 13, 2020 17:00
--- NOTE | 2020-04-13 17:43 | Nephrology Progress Note ---
Assessment/Plan Status: stable Assessment/Plan: A/P 1) CKD 3B- Cr stable - hold bumex due to hypotensiuon and fluid bolus 2) Hypokalemia - continue to replace prn 3) edema- hold bumex due to hypotensiuon and fluid bolus 4) Metastatic colon Ca with lung mets ( biopsy proven)- on Nivolumab currently -continue Optivo 5) Anemia of CKD- EPO and Iron Subjective Date patient seen: Apr 13, 2020 ROS Limited/Unobtainable: Yes Allergies: Coded Allergies: LEVOFLOXACIN (Verified Allergy, Severe, throat closes up, 12/15/19) MELOXICAM (Verified Allergy, Severe, throat closes up, 12/15/19) Subjective In COVID isolation Objective Last 24 Hour Vital Signs Date Time Temp Pulse Resp B/P (MAP) Pulse Ox O2 Delivery O2 Flow Rate FiO2 04/13/20 16:30 97.0 78 18 90/54 (66) 96 04/13/20 12:45 78 18 96 Nasal Cannula 2.0 28 04/13/20 12:00 97.8 78 18 86/54 (65) 93 04/13/20 11:33 97.2 04/13/20 09:33 Nasal Cannula 2.0 28 04/13/20 09:33 Nasal Cannula 2.0 28 04/13/20 09:00 Nasal Cannula 2.0 04/13/20 08:00 97.2 83 20 91/55 (67) 95 04/13/20 07:20 94 Nasal Cannula 2.0 28 04/13/20 05:47 96.9 04/13/20 04:00 96.9 78 20 94/60 (71) 94 04/13/20 01:42 97.5 04/12/20 23:48 97.5 75 20 96/60 (72) 94 04/12/20 21:26 Nasal Cannula 2.0 04/12/20 21:06 98.0 04/12/20 20:37 72 18 95 Nasal Cannula 2.0 28 04/12/20 20:34 72 18 95 Nasal Cannula 2.0 28 04/12/20 20:34 95 Nasal Cannula 2.0 28 04/12/20 20:00 97.8 76 18 101/58 (72) 95 Intake and Output 0 04/12/20 04/13/20 19:00 07:00 Intake Total 1615 ml 660 ml Output Total 400 ml 780 ml Balance 1215 ml -120 ml Intake Oral 1560 ml 600 ml IV Total 55 ml 60 ml Output Urine Total 400 ml 780 ml # Bowel Movements 1 Laboratory Tests 04/13/20 06:22: White Blood Count 2.4L, Red Blood Count 3.13L, Hemoglobin 8.2L, Hematocrit 26.5L , Mean Corpuscular Volume 85, Mean Corpuscular Hemoglobin 26.3L, Mean Corpuscular Hemoglobin Concent 31.0L, Red Cell Distribution Width 19.9H, Platelet Count 214, Mean Platelet Volume 6.0L, Neutrophils (%) (Auto) , Lymphocytes (%) (Auto) , Monocytes (%) (Auto) , Eosinophils (%) (Auto) , Basophils (%) (Auto) , Differential Total Cells Counted 100, Neutrophils % ( Manual) 57, Lymphocytes % (Manual) 35, Monocytes % (Manual) 6, Eosinophils % (Manual) 2, Basophils % (Manual) 0, Band Neutrophils 0, Platelet Estimate Adequate, Platelet Morphology Normal, Hypochromasia 1+, Anisocytosis 1+, Erythrocyte Sedimentation Rate 54H, D-Dimer 1.46H, Sodium Level 138, Potassium Level 3.4L, Chloride Level 103, Carbon Dioxide Level 30, Anion Gap 5, Blood Urea Nitrogen 20H, Creatinine 1.7H, Estimat Glomerular Filtration Rate 39.4, Glucose Level 72L, Calcium Level 7.6L, Ferritin 121, Interleukin 6 (IL-6) [Pending] Height (Feet): 5 Height (Inches): 7.00 Weight (Pounds): 223 Objective COVID isolation Conserve PPEs Call into room Javan Hernandez MD Apr 13, 2020 17:43
--- NOTE | 2020-04-13 19:33 | NUR ---
NURSE HAND-OFF: Important Events on Shift:[IV fluid bolus, safety and comfort, pain management] Patient Status: [stable, monitoring BP] Diet: [cardiac] Pending Orders: [] Pending Results/Labs:[] Pending MD notification:[] Latest Vital Signs: Temperature 97.0 , Pulse 78 , B/P 90 /54 , Respiratory Rate 18 , O2 SAT 96 , Nasal Cannula, O2 Flow Rate 2.0 . Vital Sign Comment: [] Latest Chan Fall Score: 60 Fall Risk: High Risk Safety Measures: Call light Within Reach, Bed Alarm Zone 1, Side Rails Side Rails x3, Bed position Low and Locked. Fall Precautions: Door Sign Patient Fall Education Report given to [HOMERO Mullen].
--- NOTE | 2020-04-13 19:45 | NUR ---
NURSE NOTES: Received report from Zonia RN. Patient is awake, alert, and oriented x4. NC 2L, breathing is even and unlabored. Patient complains of bilateral legs and feet pain 9/10. RLQ surgical dressing intact and clean noted. Dressing on left scrotum intact. IV right hand S/L and left UA S/L. Bed low and locked. Call light within reach.
[2020-04-13 20:00] VITALS: BP 89/53
[2020-04-13] MEDS: Epoetin Alfa-EPBX (NON ESRD)4000 units/ml vial SUBQ SCH (20:23)
[2020-04-13] MEDS: Epoetin Alfa-EPBX (NON ESRD) 3000 units/ml vial SUBQ SCH (20:23)
[2020-04-13] MEDS: Iron Sucrose 100 MG in NS 55 ML IVPB SCH ×2 (20:24→21:00)
--- NOTE | 2020-04-13 21:30 | NUR ---
NURSE NOTES: Left UA IV not patent anymore and IV machine keeps beeping, so patient refused IV Venofer. Patient refused flushing right hand IV and stated "I am not getting any IV tonight no matter what"
--- NOTE | 2020-04-13 23:15 | NUR ---
NURSE NOTES: Patient asking pain meds every hour, but the BP is 83/57. After taking BP three times, informed patient that no pain meds can be given due to low BP. Patient wants to get prescription from MD for sleeping pill instead.
[2020-04-14] VITALS (7 sets, daily range): BP systolic 92–102; BP diastolic 57–67
[2020-04-14] MEDS: HYDROcodone/Acetamin 5/325 tab ORAL PRN ×3 (00:31→22:51)
[2020-04-14] MEDS: traMADol 50mg tab ORAL PRN ×2 (02:48→18:25)
--- NOTE | 2020-04-14 07:08 | NUR ---
NURSE HAND-OFF: Important Events on Shift:Pain management, O2 2L Patient Status: Stable Diet: Cardiac Pending Orders: N/A Pending Results/Labs:N/A Pending MD notification:N/A Latest Vital Signs: Temperature 97.8 , Pulse 77 , B/P 99 /65 , Respiratory Rate 20 , O2 SAT 90 , Nasal Cannula, O2 Flow Rate 2.0 . Vital Sign Comment: VS stable Latest Chan Fall Score: 60 Fall Risk: High Risk Safety Measures: Call light Within Reach, Bed Alarm Zone 1, Side Rails Side Rails x2, Bed position Low and Locked. Fall Precautions: Yellow Socks Patient Fall Education Report will be given to Mingo VALENTIN.
--- NOTE | 2020-04-14 07:30 | NUR ---
NURSE NOTES: Patient lying in bed awake. Complain of pain 7/10 on legs. Will administer pain medication as ordered. IV dressing intact and dry. Wound dressing intact and dry. Remain on Contact and Droplet isolation. Bed lowest position. Call light within reach. Will continue to monitor.
--- NOTE | 2020-04-14 08:05 | Infectious Diseases Prog Note ---
Assessment/Plan 74yo M with: COVID positive On RA, asymptomatic 04/12 Rapid COVID positive 04/13 COVID PCR ordered CXR: Linear right lung opacities likely represent areas of scarring. No definite acute infiltrates. No effusions. Heart size is upper limits of normal. Mild narrowing of the trachea is again noted No significant interim change Afebrile Normal WBC R/o UTI SPC 04/07 BCx NTD UA 20-30 WBC, UCx +Enterobacter aerogenes & E.faecalis 04/08 C.dif neg CXR: Prominent mediastinum with apparent smooth caliber change of the mid trachea; mediastinum mass or lymphadenopathy is not excluded. BLE swelling US neg for DVT JEWEL on CKD PMH: pHTN/CTEPH Metastatic colon CA on nivolumab tx, last dose 2 months ago, overdue for next dose H/o DVT and PE H/o perforated diverticulitis, s/p multiple surgeries, s/p recent ileostomy takedown HTN Obesity Plan: Start dexamethasone 6mg daily (hold pt's home pred 5mg for now) Trend O2 sat, if worsening will start remdesivir Cont to monitor off abx F/u COVID PCR Would not treat +UCx. Pt's with SPC are always colonized with bacteria in their urine, and in the absence of any sx (pt without fevers/chills, leukocytosis nor urinary sx or abd pain) would not treat Monitor CBC/CMP Monitor resp status Monitor temp curve, hemodynamics D/w RN Thank you for this consult. [facility] will continue to follow. Subjective Allergies: Coded Allergies: LEVOFLOXACIN (Verified Allergy, Severe, throat closes up, 12/15/19) MELOXICAM (Verified Allergy, Severe, throat closes up, 12/15/19) AF Now on 2L NC, satting 90% --> on exam on RA feeling fine Per RN on RA sats in low 90s, which is stable from earlier in the week WBC 3.0 Objective Last 24 Hour Vital Signs Date Time Temp Pulse Resp B/P (MAP) Pulse Ox O2 Delivery O2 Flow Rate FiO2 04/14/20 04:00 97.8 77 20 99/65 (76) 90 04/14/20 00:00 97.5 80 20 96/60 (72) 92 04/13/20 22:47 Nasal Cannula 2.0 28 04/13/20 22:47 Nasal Cannula 2.0 28 04/13/20 21:00 Nasal Cannula 2.0 04/13/20 20:10 94 Nasal Cannula 2.0 28 04/13/20 20:00 97.5 86 18 89/53 (65) 94 04/13/20 17:41 97.0 04/13/20 16:30 97.0 78 18 90/54 (66) 96 04/13/20 12:45 78 18 96 Nasal Cannula 2.0 28 04/13/20 12:00 97.8 78 18 86/54 (65) 93 04/13/20 11:33 97.2 04/13/20 09:33 Nasal Cannula 2.0 28 04/13/20 09:33 Nasal Cannula 2.0 28 04/13/20 09:00 Nasal Cannula 2.0 Height (Feet): 5 Height (Inches): 7.00 Weight (Pounds): 223 Gen: NAD HEENT: NCAT Pulm: BL chest rise on RA Abd: Soft, NTND, +SPC Ext: 1-2+ BLE pitting edema Skin: No visible rashes, BLE venous stasis skin changes Neuro: Awake, alert, interactive Microbiology Date/Time Source Procedure Growth Status 04/12/20 13:34 Nasopharynx SARS-CoV-2 RdRp Gene Assay - Final Complete Current Medications Medications (Trade) Dose Ordered Sig/Kevon Route PRN Reason Start Time Stop Time Status Last Admin Dose Admin Acetaminophen/ Hydrocodone Bitart ([place] 5/325) 1 tab Q6H PRN ORAL Severe Pain (Pain Scale 7-10) 04/10/20 07:00 04/17/20 06:59 04/14/20 00:31 Alprazolam (Xanax) 0.5 mg TID PRN ORAL For Anxiety 04/07/20 21:45 04/14/20 21:44 04/13/20 22:13 Apixaban (Eliquis) 2.5 mg BID ORAL 04/08/20 18:30 07/07/20 18:29 04/13/20 17:10 Atorvastatin Calcium (Lipitor) 10 mg BEDTIME ORAL 04/08/20 21:00 07/07/20 20:59 04/13/20 20:23 Budesonide/ Formoterol Fumarate (Symbicort 160/ 4.5) 2 puff BIDRT INH 04/08/20 10:00 07/07/20 09:59 04/13/20 22:13 Epoetin Paul (Epoetin Paul-EPBX(NON ESRD)) 3,000 unit SUBQ 04/11/20 21:00 07/10/20 20:59 04/13/20 20:23 Epoetin Paul (Epoetin Paul-EPBX(NON ESRD)) 4,000 unit SUBQ 04/11/20 21:00 07/10/20 20:59 04/13/20 20:23 Escitalopram Oxalate (Lexapro) 20 mg DAILY ORAL 04/08/20 09:00 05/08/20 08:59 04/13/20 09:34 Finasteride (Proscar) 5 mg DAILY ORAL 04/08/20 09:00 07/07/20 08:59 04/13/20 09:34 Hydroxyzine HCl (Atarax) 25 mg BIDPRN PRN ORAL Itching 04/08/20 06:00 05/07/20 21:44 Iron Sucrose 100 mg/Sodium Chloride 60 ml @ 240 mls/hr BEDTIME IVPB 04/12/20 21:00 04/16/20 21:14 04/12/20 20:05 Levothyroxine Sodium (Synthroid) 75 mcg DAILY@0630 ORAL 04/08/20 06:30 05/08/20 06:29 04/14/20 06:39 Levothyroxine Sodium (Synthroid) 100 mcg DAILY@0630 ORAL 04/08/20 06:30 05/08/20 06:29 04/14/20 06:39 Ondansetron HCl (Zofran ODT) 8 mg Q8H PRN ORAL Nausea & Vomiting 04/08/20 06:00 05/07/20 21:44 Oxybutynin Chloride (Ditropan) 10 mg DAILY ORAL 04/08/20 09:00 05/08/20 08:59 04/13/20 09:33 Pantoprazole (Protonix) 40 mg BID ORAL 04/08/20 09:00 05/08/20 08:59 04/13/20 17:10 Patient Own Medication (Patient's Own Med) 1 ea TID ORAL 04/09/20 13:00 05/09/20 12:59 04/13/20 17:13 Prednisone (predniSONE) 5 mg DAILY ORAL 04/08/20 09:00 05/08/20 08:59 04/13/20 09:33 Tramadol HCl (Ultram) 50 mg Q4H PRN ORAL For Pain 04/09/20 17:00 04/16/20 16:59 04/14/20 02:48 Tammy Cruz M.D. Apr 14, 2020 08:05
[2020-04-14] MEDS: Eliquis 2.5mg tablet ORAL SCH ×2 (08:25→18:04)
[2020-04-14] MEDS: ADEMPAS 2.5 MG ORAL SCH ×3 (08:25→18:04)
[2020-04-14] MEDS: Oxybutynin 5mg tab ORAL SCH (08:27)
[2020-04-14 09:17] LABS: HEMATOCRIT 27.6 % (42.0-52.0); HEMOGLOBIN 8.6 G/DL (14.2-18.0); MEAN CORPUSCULAR VOLUME 84 FL (80-99); PLATELET COUNT 213 K/UL (150-450); RED CELL DISTRIBUTION WIDTH 19.8 % (11.6-14.8)
[2020-04-14 09:39] LABS: CALCIUM 7.7 MG/DL (8.5-10.1); CREATININE 1.6 MG/DL (0.55-1.30); POTASSIUM 3.6 MMOL/L (3.5-5.1)
--- NOTE | 2020-04-14 09:50 | Pulmonology Progress Note ---
Subjective ROS Limited/Unobtainable: Yes Allergies: Coded Allergies: LEVOFLOXACIN (Verified Allergy, Severe, throat closes up, 12/15/19) MELOXICAM (Verified Allergy, Severe, throat closes up, 12/15/19) Subjective afebrile denies CP, SOB received bolus not complete as ordered 04/13, BP better, still on the low side awaiting fro COVID by PCR result rapid COVID 19 + remains asymptomatic regards to COVID 19 chemistry still pending for this am Objective Last 24 Hour Vital Signs Date Time Temp Pulse Resp B/P (MAP) Pulse Ox O2 Delivery O2 Flow Rate FiO2 04/14/20 09:00 Nasal Cannula 2.0 04/14/20 08:00 98.0 77 18 93/58 (70) 93 04/14/20 04:00 97.8 77 20 99/65 (76) 90 04/14/20 00:00 97.5 80 20 96/60 (72) 92 04/13/20 22:47 Nasal Cannula 2.0 28 04/13/20 22:47 Nasal Cannula 2.0 28 04/13/20 21:00 Nasal Cannula 2.0 04/13/20 20:10 94 Nasal Cannula 2.0 28 04/13/20 20:00 97.5 86 18 89/53 (65) 94 04/13/20 17:41 97.0 04/13/20 16:30 97.0 78 18 90/54 (66) 96 04/13/20 12:45 78 18 96 Nasal Cannula 2.0 28 04/13/20 12:00 97.8 78 18 86/54 (65) 93 04/13/20 11:33 97.2 Intake and Output 04/13/20 04/14/20 19:00 07:00 Intake Total 1080 ml 500 ml Output Total 1000 ml 625 ml Balance 80 ml -125 ml Intake Oral 1080 ml 500 ml Output Urine Total 1000 ml 625 ml # Bowel Movements 2 2 Objective General Appearance: no apparent distress, alert oriented x3 Lines, tubes and drains: peripheral HEENT: normocephalic, atraumatic, anicteric, mucous membranes moist Neck: non-tender, supple Respiratory/Chest: lungs clear - with moderate air exchange , no accessory muscle use Cardiovascular/Chest: normal peripheral pulses, normal rate Abdomen: normal bowel sounds, non tender, obese , soft, left lower abdomen healed scar, right upper abdomen site of previous ileostomy with dressing, intact ; no evidence of infection , healing Genitourinary/Rectal: s/p catheter - with dark urine Extremities: normal range of motion, non-tender, no calf tenderness, normal capillary refill Neurologic: no motor/sensory deficits, alert, oriented x 3, responsive Musculoskeletal: normal muscle bulk Microbiology Date/Time Source Procedure Growth Status 04/12/20 13:34 Nasopharynx SARS-CoV-2 RdRp Gene Assay - Final Complete Laboratory Tests 04/14/20 08:55: White Blood Count 3.0L, Red Blood Count 3.30L, Hemoglobin 8.6L, Hematocrit 27.6L , Mean Corpuscular Volume 84, Mean Corpuscular Hemoglobin 26.0L, Mean Corpuscular Hemoglobin Concent 31.1L, Red Cell Distribution Width 19.8H, Platelet Count 213, Mean Platelet Volume 5.5L, Neutrophils (%) (Auto) , Lymphocytes (%) (Auto) , Monocytes (%) (Auto) , Eosinophils (%) (Auto) , Basophils (%) (Auto) , Neutrophils % (Manual) [Pending], Lymphocytes % (Manual) [Pending], Platelet Estimate [Pending], Platelet Morphology [Pending], Sodium Level [Pending], Potassium Level [Pending], Chloride Level [Pending], Carbon Dioxide Level [Pending], Blood Urea Nitrogen [Pending], Creatinine [Pending], Estimat Glomerular Filtration Rate [Pending], Glucose Level [Pending], Calcium Level [Pending], C-Reactive Protein, Quantitative [Pending] Current Medications Medications (Trade) Dose Ordered Sig/Kevon Route PRN Reason Start Time Stop Time Status Last Admin Dose Admin Acetaminophen/ Hydrocodone Bitart ([place] 5/325) 1 tab Q6H PRN ORAL Severe Pain (Pain Scale 7-10) 04/10/20 07:00 04/17/20 06:59 04/14/20 00:31 Alprazolam (Xanax) 0.5 mg TID PRN ORAL For Anxiety 04/07/20 21:45 04/14/20 21:44 04/13/20 22:13 Apixaban (Eliquis) 2.5 mg BID ORAL 04/08/20 18:30 07/07/20 18:29 04/14/20 08:25 Atorvastatin Calcium (Lipitor) 10 mg BEDTIME ORAL 04/08/20 21:00 07/07/20 20:59 04/13/20 20:23 Budesonide/ Formoterol Fumarate (Symbicort 160/ 4.5) 2 puff BIDRT INH 04/08/20 10:00 07/07/20 09:59 04/13/20 22:13 Dexamethasone (Decadron) 6 mg DAILY ORAL 04/14/20 09:00 04/23/20 09:01 04/14/20 08:25 Epoetin Paul (Epoetin Paul-EPBX(NON ESRD)) 3,000 unit SUBQ 04/11/20 21:00 07/10/20 20:59 04/13/20 20:23 Epoetin Paul (Epoetin Paul-EPBX(NON ESRD)) 4,000 unit SUBQ 04/11/20 21:00 07/10/20 20:59 04/13/20 20:23 Escitalopram Oxalate (Lexapro) 20 mg DAILY ORAL 04/08/20 09:00 05/08/20 08:59 04/14/20 08:25 Finasteride (Proscar) 5 mg DAILY ORAL 04/08/20 09:00 07/07/20 08:59 04/14/20 08:25 Hydroxyzine HCl (Atarax) 25 mg BIDPRN PRN ORAL Itching 04/08/20 06:00 05/07/20 21:44 Iron Sucrose 100 mg/Sodium Chloride 60 ml @ 240 mls/hr BEDTIME IVPB 04/12/20 21:00 04/16/20 21:14 04/12/20 20:05 Levothyroxine Sodium (Synthroid) 75 mcg DAILY@0630 ORAL 04/08/20 06:30 05/08/20 06:29 04/14/20 06:39 Levothyroxine Sodium (Synthroid) 100 mcg DAILY@0630 ORAL 04/08/20 06:30 05/08/20 06:29 04/14/20 06:39 Ondansetron HCl (Zofran ODT) 8 mg Q8H PRN ORAL Nausea & Vomiting 04/08/20 06:00 05/07/20 21:44 04/14/20 09:15 Oxybutynin Chloride (Ditropan) 10 mg DAILY ORAL 04/08/20 09:00 05/08/20 08:59 04/14/20 08:27 Pantoprazole (Protonix) 40 mg BID ORAL 04/08/20 09:00 05/08/20 08:59 04/14/20 08:25 Patient Own Medication (Patient's Own Med) 1 ea TID ORAL 04/09/20 13:00 05/09/20 12:59 04/14/20 08:25 Tramadol HCl (Ultram) 50 mg Q4H PRN ORAL For Pain 04/09/20 17:00 04/16/20 16:59 04/14/20 02:48 Assessment/Plan Assessment/Plan ASSESSMENT JEWEL on CKD in setting of RCC Pulmonary HTN /CTEPH COVID 19 infection FTT, unable to care for himself Possible protein calorie malnutrition Metastatic colon Ca with lung mets ( biopsy proven)- on Nivolumab currently Polymicrobial UTI/ Enterobacter, Enterococci -> asymptomatic bacteria / chronic suprapubic catheter E/lyte imbalance : hypo Mg, hypo K Hypotension 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 Hx of perforated diverticulitis with multiple surgeries, s/p recent ileostomy takedown Anemia of chronic disease Moderate pulmonary HTN Chronic bronchitis HTN Obesity Incontinence associated dermatitis PLAN OF CARE MS floor O2 titrate to keep sat > 92 pulm toilet resume home inhaler continue a/c for DVT/PE s/p IVF and diuretic , CKD stable -as per nephro monitor renal parameters, lytes, avoid nephrotoxic, nephro recommends conservative medical management and avoid nephrotoxics monitor HH with goal to keep Hgb > 7, started on EPO, iron panel with low iron and ferritin; on Venofer x5 days Hgb better Venous Duplex BLE NGT cardio follows prior ECHO with pEF s/p bolus 04/13 off Bumex ( discussed with nephro) BP better, although remains on the low side was initially on cefepime UCX + Enterobacter, Enterococci BCX NGTD stool C dif NGT ID eval appreciated per ID asymptomatic bacteriuria, given s/p catheter ; keep off abx rapid COVID 19 04/12 positive isolation pulse ox stable on RA, remains asymptomatic will repeat COVID 19 by PCR ( discussed with ID) monitor resp status closely inflam markers not impressive IL6 ordered ( not sure if still perform in this facility as send out test) along with CRP in am home meds resumed surgery follows skin care as per surgeon recommendations SW for placement PT eval and Rx fall precautions dietary eval GI prophylaxis supportive care dc plan for SNF placement after COVID by PCR status known case discussed and evaluated by supervising physician Sania Menard NP Apr 14, 2020 09:50
--- NOTE | 2020-04-14 12:59 | Nephrology Progress Note ---
Assessment/Plan Status: stable Assessment/Plan: A/P 1) CKD 3B- Cr stable - hold bumex due to hypotensiuon 2) Hypokalemia - corrected 3) edema- hold bumex due to hypotensiuon 4) Metastatic colon Ca with lung mets ( biopsy proven)- on Nivolumab currently -continue Optivo 5) Anemia of CKD- EPO and Iron replacement 6) COVID + per ID mgmt Subjective Date patient seen: Apr 14, 2020 Time patient seen: 12:58 ROS Limited/Unobtainable: Yes Allergies: Coded Allergies: LEVOFLOXACIN (Verified Allergy, Severe, throat closes up, 12/15/19) MELOXICAM (Verified Allergy, Severe, throat closes up, 12/15/19) Subjective In COVID isolation Objective Last 24 Hour Vital Signs Date Time Temp Pulse Resp B/P (MAP) Pulse Ox O2 Delivery O2 Flow Rate FiO2 04/14/20 09:00 Nasal Cannula 2.0 04/14/20 08:05 96 Nasal Cannula 2.0 28 04/14/20 08:00 98.0 77 18 93/58 (70) 93 04/14/20 04:00 97.8 77 20 99/65 (76) 90 04/14/20 00:00 97.5 80 20 96/60 (72) 92 04/13/20 22:47 Nasal Cannula 2.0 28 04/13/20 22:47 Nasal Cannula 2.0 28 04/13/20 21:00 Nasal Cannula 2.0 04/13/20 20:10 94 Nasal Cannula 2.0 28 04/13/20 20:00 97.5 86 18 89/53 (65) 94 04/13/20 17:41 97.0 04/13/20 16:30 97.0 78 18 90/54 (66) 96 Intake and Output 04/13/20 04/14/20 19:00 07:00 Intake Total 1080 ml 500 ml Output Total 1000 ml 625 ml Balance 80 ml -125 ml Intake Oral 1080 ml 500 ml Output Urine Total 1000 ml 625 ml # Bowel Movements 2 2 Laboratory Tests 04/14/20 08:55: White Blood Count 3.0L, Red Blood Count 3.30L, Hemoglobin 8.6L, Hematocrit 27.6L , Mean Corpuscular Volume 84, Mean Corpuscular Hemoglobin 26.0L, Mean Corpuscular Hemoglobin Concent 31.1L, Red Cell Distribution Width 19.8H, Platelet Count 213, Mean Platelet Volume 5.5L, Neutrophils (%) (Auto) , Lymphocytes (%) (Auto) , Monocytes (%) (Auto) , Eosinophils (%) (Auto) , Basophils (%) (Auto) , Differential Total Cells Counted 100, Neutrophils % (Manual) 55, Lymphocytes % (Manual) 34, Monocytes % (Manual) 11H, Eosinophils % (Manual) 0, Basophils % (Manual) 0, Band Neutrophils 0, Platelet Estimate Adequate, Platelet Morphology Normal, Hypochromasia 1+, Anisocytosis 1+, Sodium Level 136, Potassium Level 3.6, Chloride Level 102, Carbon Dioxide Level 30, Anion Gap 4L, Blood Urea Nitrogen 18, Creatinine 1.6H, Estimat Glomerular Filtration Rate 42.2, Glucose Level 68L, Calcium Level 7.7L, C-Reactive Protein, Quantitative 4.2H Height (Feet): 5 Height (Inches): 7.00 Weight (Pounds): 223 Objective COVID isolation Conserve PPEs Call into room Javan Hernandez MD Apr 14, 2020 12:59
[2020-04-14] MEDS: ALPRAZolam 0.5mg tab ORAL PRN (13:00)
--- NOTE | 2020-04-14 15:46 | Surgery Progress Note ---
Surgery Progress Note Subjective Symptoms: improved, tolerating diet, passing flatus, BM Objective Last 24 Hour Vital Signs Date Time Temp Pulse Resp B/P (MAP) Pulse Ox O2 Delivery O2 Flow Rate FiO2 04/14/20 12:00 98.9 86 18 95/60 (72) 95 04/14/20 09:00 Nasal Cannula 2.0 04/14/20 08:05 96 Nasal Cannula 2.0 28 04/14/20 08:00 98.0 77 18 93/58 (70) 93 04/14/20 04:00 97.8 77 20 99/65 (76) 90 04/14/20 00:00 97.5 80 20 96/60 (72) 92 04/13/20 22:47 Nasal Cannula 2.0 28 04/13/20 22:47 Nasal Cannula 2.0 28 04/13/20 21:00 Nasal Cannula 2.0 04/13/20 20:10 94 Nasal Cannula 2.0 28 04/13/20 20:00 97.5 86 18 89/53 (65) 94 04/13/20 17:41 97.0 04/13/20 16:30 97.0 78 18 90/54 (66) 96 I&O Intake and Output 04/13/20 04/14/20 19:00 07:00 Intake Total 1080 ml 500 ml Output Total 1000 ml 625 ml Balance 80 ml -125 ml Intake Oral 1080 ml 500 ml Output Urine Total 1000 ml 625 ml # Bowel Movements 2 2 Dressing: saturated Cardiovascular: RSR Respiratory: decreased breath sounds Abdomen: non-tender, present bowel sounds Extremities: no tenderness, no cyanosis Laboratory Tests Test 04/14/20 08:55 White Blood Count 3.0 K/UL (4.8-10.8) L Red Blood Count 3.30 M/UL (4.70-6.10) L Hemoglobin 8.6 G/DL (14.2-18.0) L Hematocrit 27.6 % (42.0-52.0) L Mean Corpuscular Volume 84 FL (80-99) Mean Corpuscular Hemoglobin 26.0 PG (27.0-31.0) L Mean Corpuscular Hemoglobin Concent 31.1 G/DL (32.0-36.0) L Red Cell Distribution Width 19.8 % (11.6-14.8) H Platelet Count 213 K/UL (150-450) Mean Platelet Volume 5.5 FL (6.5-10.1) L Neutrophils (%) (Auto) % (45.0-75.0) Lymphocytes (%) (Auto) % (20.0-45.0) Monocytes (%) (Auto) % (1.0-10.0) Eosinophils (%) (Auto) % (0.0-3.0) Basophils (%) (Auto) % (0.0-2.0) Differential Total Cells Counted 100 Neutrophils % (Manual) 55 % (45-75) Lymphocytes % (Manual) 34 % (20-45) Monocytes % (Manual) 11 % (1-10) H Eosinophils % (Manual) 0 % (0-3) Basophils % (Manual) 0 % (0-2) Band Neutrophils 0 % (0-8) Platelet Estimate Adequate Platelet Morphology Normal Hypochromasia 1+ Anisocytosis 1+ Sodium Level 136 MMOL/L (136-145) Potassium Level 3.6 MMOL/L (3.5-5.1) Chloride Level 102 MMOL/L (98-107) Carbon Dioxide Level 30 MMOL/L (21-32) Anion Gap 4 mmol/L (5-15) L Blood Urea Nitrogen 18 mg/dL (7-18) Creatinine 1.6 MG/DL (0.55-1.30) H Estimat Glomerular Filtration Rate 42.2 mL/min (>60) Glucose Level 68 MG/DL (74-106) L Calcium Level 7.7 MG/DL (8.5-10.1) L C-Reactive Protein, Quantitative 4.2 mg/dL (0.00-0.90) H Plan Problems: (1) Hypomagnesemia (2) UTI (urinary tract infection) (3) Hypokalemia (4) Renal insufficiency (5) Unable to ambulate (6) Incontinence associated dermatitis Assessment & Plan: Patient status post recent ostomy takedown has been recovering at home but was declining difficulty with breathing and ambulating came to emergency department [facility] was admitted. He is still having difficulty with ambulating working with physical therapy. In his current state he is eating though he does not like the food and he is having loose bowel movements. Unfortunately is unable go to the bathroom is been sitting is with bowel movements and has noted some itching in the perirectal region on identification being noted to have gone associated dermatitis. I discussion with the patient regarding 2 bowel movements call light and assistance. Nursing staff aware. Please monitor for incontinence clean accordingly. Turn every 2 hours. Incentive spirometry. Offload pressures as possible. Keep heels elevated with pillows while in bed. Respiratory therapy. Thank you will follow the recommendations ostomy dressings BID with gauze packing and dressings (7) Decubital ulcer Assessment & Plan: Pt presented on admission with Full thickness stage 3 Pressure Injury. Pt stated "I have had wound for a couple of weeks." Full thickness Pressure Injury L Ischium.(L)0.8cm x (W)2cm x (D)0.2cm. Base of wound is amber with scattered slough. .Edges are macerated. Small amt serosanguineous exudate. No odor noted. Periwound is erythematous. No elevation in skin temp noted. No evidence of sacral Skin breakdown noted. R and And L heels are firm ,dry and blanchable. 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 Pt stated he is not capable of repositioning self without staff asst. Pt also declined to be positioned on his side. Pt was offered AN APM/JIN Mattress but pt also declined Surface support mattress. Tx.Plan: Cleanse L Ischial wound with Saline. Apply Therahoney. Apply Moisture Barrier Paste periwound. Cover with Optifoam drsg. every 3 days and prn. Apply Moisture Barrier Paste to Sacrum. Cover with Optifoam drsg. Change every 3 days and prn. Apply Cavilon Skin Barrier to both heels. Cover each heel with Optifoam drsg. Change every 7 days and prn. Reposition at least every 2hours or as tolerated. Off-load heels with Pillow. Jeremiah Gonzales Apr 14, 2020 15:46
--- NOTE | 2020-04-14 17:03 | Cardiology Progress Note ---
Assessment/Plan Assessment/Plan 1. New COVID-19 2. Colon CA with metastasis, on Nivolumab s/o ileostomy takedown 03/14/20 3. RCC with JEWEL on CKD 4. HFpEF, EF 69% per recent echo done at [facility] 03/14/2020 BNP 454 troponin negative Bumex for diuresis 5. HTN 6. 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 7. Anemia of chronic disease 8. SOB and weakness at admission No acute distress. Leg edema improved after diuresis and leg elevation, VUS negative for acute thrombus. Subjective ROS Limited/Unobtainable: No Cardiovascular: Reports: edema Respiratory: Reports: shortness of breath Gastrointestinal/Abdominal: Reports: poor appetite Genitourinary: Reports: no symptoms Subjective COVID-10 positive after admission Objective Last 24 Hour Vital Signs Date Time Temp Pulse Resp B/P (MAP) Pulse Ox O2 Delivery O2 Flow Rate FiO2 04/14/20 16:00 98.8 78 18 101/67 (78) 95 04/14/20 12:00 98.9 86 18 95/60 (72) 95 04/14/20 09:00 Nasal Cannula 2.0 04/14/20 08:05 96 Nasal Cannula 2.0 28 04/14/20 08:00 98.0 77 18 93/58 (70) 93 04/14/20 04:00 97.8 77 20 99/65 (76) 90 04/14/20 00:00 97.5 80 20 96/60 (72) 92 04/13/20 22:47 Nasal Cannula 2.0 28 04/13/20 22:47 Nasal Cannula 2.0 28 04/13/20 21:00 Nasal Cannula 2.0 04/13/20 20:10 94 Nasal Cannula 2.0 28 04/13/20 20:00 97.5 86 18 89/53 (65) 94 04/13/20 17:41 97.0 Intake and Output 04/13/20 04/14/20 19:00 07:00 Intake Total 1080 ml 500 ml Output Total 1000 ml 625 ml Balance 80 ml -125 ml Intake Oral 1080 ml 500 ml Output Urine Total 1000 ml 625 ml # Bowel Movements 2 2 Laboratory Tests Test 04/14/20 08:55 White Blood Count 3.0 K/UL (4.8-10.8) L Red Blood Count 3.30 M/UL (4.70-6.10) L Hemoglobin 8.6 G/DL (14.2-18.0) L Hematocrit 27.6 % (42.0-52.0) L Mean Corpuscular Volume 84 FL (80-99) Mean Corpuscular Hemoglobin 26.0 PG (27.0-31.0) L Mean Corpuscular Hemoglobin Concent 31.1 G/DL (32.0-36.0) L Red Cell Distribution Width 19.8 % (11.6-14.8) H Platelet Count 213 K/UL (150-450) Mean Platelet Volume 5.5 FL (6.5-10.1) L Neutrophils (%) (Auto) % (45.0-75.0) Lymphocytes (%) (Auto) % (20.0-45.0) Monocytes (%) (Auto) % (1.0-10.0) Eosinophils (%) (Auto) % (0.0-3.0) Basophils (%) (Auto) % (0.0-2.0) Differential Total Cells Counted 100 Neutrophils % (Manual) 55 % (45-75) Lymphocytes % (Manual) 34 % (20-45) Monocytes % (Manual) 11 % (1-10) H Eosinophils % (Manual) 0 % (0-3) Basophils % (Manual) 0 % (0-2) Band Neutrophils 0 % (0-8) Platelet Estimate Adequate Platelet Morphology Normal Hypochromasia 1+ Anisocytosis 1+ Sodium Level 136 MMOL/L (136-145) Potassium Level 3.6 MMOL/L (3.5-5.1) Chloride Level 102 MMOL/L (98-107) Carbon Dioxide Level 30 MMOL/L (21-32) Anion Gap 4 mmol/L (5-15) L Blood Urea Nitrogen 18 mg/dL (7-18) Creatinine 1.6 MG/DL (0.55-1.30) H Estimat Glomerular Filtration Rate 42.2 mL/min (>60) Glucose Level 68 MG/DL (74-106) L Calcium Level 7.7 MG/DL (8.5-10.1) L C-Reactive Protein, Quantitative 4.2 mg/dL (0.00-0.90) H Microbiology Date/Time Source Procedure Growth Status 04/12/20 13:34 Nasopharynx SARS-CoV-2 RdRp Gene Assay - Final Complete Beatriz Segovia PA-C Apr 14, 2020 17:02
--- NOTE | 2020-04-14 19:30 | NUR ---
NURSE HAND-OFF: Important Events on Shift:N/A Patient Status: Stable Diet: Cardiac Pending Orders: N/A Pending Results/Labs: COVID PCR pending Pending MD notification:N/A Latest Vital Signs: Temperature 98.8 , Pulse 78 , B/P 101 /67 , Respiratory Rate 18 , O2 SAT 95 , Nasal Cannula, O2 Flow Rate 2.0 . Vital Sign Comment: Stable Latest Chan Fall Score: 60 Fall Risk: High Risk Safety Measures: Call light Within Reach, Bed Alarm Zone 1, Side Rails Side Rails x2, Bed position Low and Locked. Fall Precautions: Yellow Socks Door Sign Patient Fall Education Report given to Baudilio VALENTIN. Patient in stable condition.
[2020-04-14] MEDS: Iron Sucrose 100 MG in NS 55 ML IVPB SCH (20:24)
[2020-04-15] VITALS (8 sets, daily range): BP systolic 81–98; BP diastolic 55–63
--- NOTE | 2020-04-15 01:27 | NUR ---
NURSE NOTES: Patient in bed, alert and oriented x4, complains of severe pain generally. Will check vitals signs first. Call light in reach. Bed in lowest alarm on and lock engaged. Will continue plan of care. Addendum: 04/15/20 at 0129 by KOMAL GONZALEZ RN this note for 04/14/20 1930
--- NOTE | 2020-04-15 01:29 | NUR ---
NURSE NOTES: Patient been asking for his pain meds and sleeping aid. RN takes patient's BP almost every hour. Patient's blood pressure is on the low side. Explained the risks and benefits and effect of pain meds to blood pressure. Patient is non compliant and RN has to reinforce. Will still continue to monitor patient.
[2020-04-15 06:16] LABS: HEMATOCRIT 25.7 % (42.0-52.0); HEMOGLOBIN 8.2 G/DL (14.2-18.0); MEAN CORPUSCULAR VOLUME 81 FL (80-99); PLATELET COUNT 216 K/UL (150-450); RED BLOOD COUNT 3.16 M/UL (4.70-6.10); RED CELL DISTRIBUTION WIDTH 20.5 % (11.6-14.8)
[2020-04-15 06:45] LABS: CALCIUM 8.1 MG/DL (8.5-10.1); CREATININE 1.6 MG/DL (0.55-1.30); POTASSIUM 3.9 MMOL/L (3.5-5.1)
--- NOTE | 2020-04-15 07:04 | NUR ---
NURSE HAND-OFF: Important Events on Shift: Normal BM x 2 , Patient Status: Diet: Cardiac Pending Orders: Pending Results/Labs: Pending MD notification: Latest Vital Signs: Temperature 97.5 , Pulse 69 , B/P 98 /62 , Respiratory Rate 20 , O2 SAT 94 , Nasal Cannula, O2 Flow Rate 2.0 . Vital Sign Comment: Latest Chan Fall Score: 60 Fall Risk: High Risk Safety Measures: Call light Within Reach, Bed Alarm Zone 1, Side Rails Side Rails x2, Bed position Low and Locked. Fall Precautions: Yellow Socks Door Sign Patient Fall Education Report given to HOMERO Sutherland.
--- NOTE | 2020-04-15 07:22 | NUR ---
NURSE NOTES: Report received from Baudilio VALENTIN, rounds made. Patient AOx4 calm, respirations even unlabored on RA. Suprapubic cath, in place, patent , light mali clear urine noted in drainage bag. RASHEL saline lock intact, site asymptomatic. Call light in reach, bed in lowest position, will continue to monitor.
--- NOTE | 2020-04-15 08:26 | Infectious Diseases Prog Note ---
Assessment/Plan 74yo M with: COVID positive On RA, asymptomatic 04/12 Rapid COVID positive 04/13 COVID PCR positive CXR: Linear right lung opacities likely represent areas of scarring. No definite acute infiltrates. No effusions. Heart size is upper limits of normal. Mild narrowing of the trachea is again noted No significant interim change Afebrile Normal WBC R/o UTI SPC 04/07 BCx NTD UA 20-30 WBC, UCx +Enterobacter aerogenes & E.faecalis 04/08 C.dif neg CXR: Prominent mediastinum with apparent smooth caliber change of the mid trachea; mediastinum mass or lymphadenopathy is not excluded. BLE swelling US neg for DVT JEWEL on CKD PMH: pHTN/CTEPH Metastatic colon CA on nivolumab tx, last dose 2 months ago, overdue for next dose H/o DVT and PE H/o perforated diverticulitis, s/p multiple surgeries, s/p recent ileostomy takedown HTN Obesity Plan: Cont dexamethasone 6mg daily (hold pt's home pred 5mg for now) #2/10 Trend O2 sat, if worsening will start remdesivir Cont to monitor off abx Would not treat +UCx. Pt's with SPC are always colonized with bacteria in their urine, and in the absence of any sx (pt without fevers/chills, leukocytosis nor urinary sx or abd pain) would not treat Monitor CBC/CMP Monitor resp status Monitor temp curve, hemodynamics D/w RN Thank you for this consult. [facility] will continue to follow. Subjective Allergies: Coded Allergies: LEVOFLOXACIN (Verified Allergy, Severe, throat closes up, 12/15/19) MELOXICAM (Verified Allergy, Severe, throat closes up, 12/15/19) AF 2L NC, satting 94-95% - on exam on RA doing well NAD COVID PCR positive Objective Last 24 Hour Vital Signs Date Time Temp Pulse Resp B/P (MAP) Pulse Ox O2 Delivery O2 Flow Rate FiO2 04/15/20 04:00 97.5 69 20 98/62 (74) 94 04/15/20 00:00 97.7 75 19 92/62 (72) 98 04/14/20 23:00 102/57 (72) 04/14/20 21:36 95 Nasal Cannula 2.0 28 04/14/20 21:00 Nasal Cannula 2.0 04/14/20 20:00 97.9 75 20 92/62 (72) 100 04/14/20 16:00 98.8 78 18 101/67 (78) 95 04/14/20 12:00 98.9 86 18 95/60 (72) 95 04/14/20 09:00 Nasal Cannula 2.0 Height (Feet): 5 Height (Inches): 7.00 Weight (Pounds): 223 Gen: NAD HEENT: NCAT Pulm: BL chest rise on RA Abd: Soft, NTND, +SPC Ext: 1-2+ BLE pitting edema Skin: No visible rashes, BLE venous stasis skin changes Neuro: Awake, alert, interactive Microbiology Date/Time Source Procedure Growth Status 04/13/20 10:50 Nasopharynx Coronavirus COVID-19 PCR (NILE) - Final Complete 04/12/20 13:34 Nasopharynx SARS-CoV-2 RdRp Gene Assay - Final Complete Laboratory Tests Test 04/14/20 08:55 04/15/20 05:55 White Blood Count 3.0 K/UL (4.8-10.8) L 3.0 K/UL (4.8-10.8) L Red Blood Count 3.30 M/UL (4.70-6.10) L 3.16 M/UL (4.70-6.10) L Hemoglobin 8.6 G/DL (14.2-18.0) L 8.2 G/DL (14.2-18.0) L Hematocrit 27.6 % (42.0-52.0) L 25.7 % (42.0-52.0) L Mean Corpuscular Volume 84 FL (80-99) 81 FL (80-99) Mean Corpuscular Hemoglobin 26.0 PG (27.0-31.0) L 25.9 PG (27.0-31.0) L Mean Corpuscular Hemoglobin Concent 31.1 G/DL (32.0-36.0) L 31.9 G/DL (32.0-36.0) L Red Cell Distribution Width 19.8 % (11.6-14.8) H 20.5 % (11.6-14.8) H Platelet Count 213 K/UL (150-450) 216 K/UL (150-450) Mean Platelet Volume 5.5 FL (6.5-10.1) L 5.6 FL (6.5-10.1) L Neutrophils (%) (Auto) % (45.0-75.0) % (45.0-75.0) Lymphocytes (%) (Auto) % (20.0-45.0) % (20.0-45.0) Monocytes (%) (Auto) % (1.0-10.0) % (1.0-10.0) Eosinophils (%) (Auto) % (0.0-3.0) % (0.0-3.0) Basophils (%) (Auto) % (0.0-2.0) % (0.0-2.0) Differential Total Cells Counted 100 Neutrophils % (Manual) 55 % (45-75) Lymphocytes % (Manual) 34 % (20-45) Monocytes % (Manual) 11 % (1-10) H Eosinophils % (Manual) 0 % (0-3) Basophils % (Manual) 0 % (0-2) Band Neutrophils 0 % (0-8) Platelet Estimate Adequate Platelet Morphology Normal Hypochromasia 1+ Anisocytosis 1+ Sodium Level 136 MMOL/L (136-145) 134 MMOL/L (136-145) L Potassium Level 3.6 MMOL/L (3.5-5.1) 3.9 MMOL/L (3.5-5.1) Chloride Level 102 MMOL/L (98-107) 102 MMOL/L (98-107) Carbon Dioxide Level 30 MMOL/L (21-32) 28 MMOL/L (21-32) Anion Gap 4 mmol/L (5-15) L 4 mmol/L (5-15) L Blood Urea Nitrogen 18 mg/dL (7-18) 23 mg/dL (7-18) H Creatinine 1.6 MG/DL (0.55-1.30) H 1.6 MG/DL (0.55-1.30) H Estimat Glomerular Filtration Rate 42.2 mL/min (>60) 42.2 mL/min (>60) Glucose Level 68 MG/DL (74-106) L 81 MG/DL (74-106) Calcium Level 7.7 MG/DL (8.5-10.1) L 8.1 MG/DL (8.5-10.1) L C-Reactive Protein, Quantitative 4.2 mg/dL (0.00-0.90) H Pro-B-Type Natriuretic Peptide 1062 pg/mL (0-125) H Current Medications Medications (Trade) Dose Ordered Sig/Kevon Route PRN Reason Start Time Stop Time Status Last Admin Dose Admin Acetaminophen/ Hydrocodone Bitart ([place] 5/325) 1 tab Q6H PRN ORAL Severe Pain (Pain Scale 7-10) 04/10/20 07:00 04/17/20 06:59 04/14/20 22:51 Alprazolam (Xanax) 0.5 mg TID PRN ORAL For Anxiety 04/15/20 00:12 04/22/20 00:11 Apixaban (Eliquis) 2.5 mg BID ORAL 04/08/20 18:30 07/07/20 18:29 04/14/20 18:04 Atorvastatin Calcium (Lipitor) 10 mg BEDTIME ORAL 04/08/20 21:00 07/07/20 20:59 04/14/20 22:35 Budesonide/ Formoterol Fumarate (Symbicort 160/ 4.5) 2 puff BIDRT INH 04/08/20 10:00 07/07/20 09:59 04/14/20 10:29 Dexamethasone (Decadron) 6 mg DAILY ORAL 04/14/20 09:00 04/23/20 09:01 04/14/20 08:25 Epoetin Paul (Epoetin Paul-EPBX(NON ESRD)) 3,000 unit SUBQ 04/11/20 21:00 07/10/20 20:59 04/13/20 20:23 Epoetin Paul (Epoetin Paul-EPBX(NON ESRD)) 4,000 unit SUBQ 04/11/20 21:00 07/10/20 20:59 04/13/20 20:23 Escitalopram Oxalate (Lexapro) 20 mg DAILY ORAL 04/08/20 09:00 05/08/20 08:59 04/14/20 08:25 Finasteride (Proscar) 5 mg DAILY ORAL 04/08/20 09:00 07/07/20 08:59 04/14/20 08:25 Hydroxyzine HCl (Atarax) 25 mg BIDPRN PRN ORAL Itching 04/08/20 06:00 05/07/20 21:44 Iron Sucrose 100 mg/Sodium Chloride 60 ml @ 240 mls/hr BEDTIME IVPB 04/12/20 21:00 04/16/20 21:14 04/14/20 20:24 Levothyroxine Sodium (Synthroid) 75 mcg DAILY@0630 ORAL 04/08/20 06:30 05/08/20 06:29 04/15/20 06:21 Levothyroxine Sodium (Synthroid) 100 mcg DAILY@0630 ORAL 04/08/20 06:30 05/08/20 06:29 04/15/20 06:21 Ondansetron HCl (Zofran ODT) 8 mg Q8H PRN ORAL Nausea & Vomiting 04/08/20 06:00 05/07/20 21:44 04/14/20 09:15 Oxybutynin Chloride (Ditropan) 10 mg DAILY ORAL 04/08/20 09:00 05/08/20 08:59 04/14/20 08:27 Pantoprazole (Protonix) 40 mg BID ORAL 04/08/20 09:00 05/08/20 08:59 04/14/20 18:04 Patient Own Medication (Patient's Own Med) 1 ea TID ORAL 04/09/20 13:00 05/09/20 12:59 04/14/20 18:04 Tramadol HCl (Ultram) 50 mg Q4H PRN ORAL For Pain 04/09/20 17:00 04/16/20 16:59 04/14/20 18:25 Tammy Cruz M.D. Apr 15, 2020 08:25
--- NOTE | 2020-04-15 09:55 | Pulmonology Progress Note ---
Subjective ROS Limited/Unobtainable: No Allergies: Coded Allergies: LEVOFLOXACIN (Verified Allergy, Severe, throat closes up, 12/15/19) MELOXICAM (Verified Allergy, Severe, throat closes up, 12/15/19) Subjective afebrile denies CP, SOB COVID 19 by PCR came back positive as well remains asymptomatic regards to COVID 19 Objective Last 24 Hour Vital Signs Date Time Temp Pulse Resp B/P (MAP) Pulse Ox O2 Delivery O2 Flow Rate FiO2 04/15/20 04:00 97.5 69 20 98/62 (74) 94 04/15/20 00:00 97.7 75 19 92/62 (72) 98 04/14/20 23:00 102/57 (72) 04/14/20 21:36 95 Nasal Cannula 2.0 28 04/14/20 21:00 Nasal Cannula 2.0 04/14/20 20:00 97.9 75 20 92/62 (72) 100 04/14/20 16:00 98.8 78 18 101/67 (78) 95 04/14/20 12:00 98.9 86 18 95/60 (72) 95 Intake and Output 04/14/20 04/15/20 19:00 07:00 Intake Total 800 ml 460 ml Output Total 500 ml Balance 800 ml -40 ml Intake Oral 400 ml IV Total 60 ml Other 800 ml Output Urine Total 500 ml # Bowel Movements 1 3 Objective General Appearance: no apparent distress, alert oriented x3 Lines, tubes and drains: peripheral HEENT: normocephalic, atraumatic, anicteric, mucous membranes moist Neck: non-tender, supple Respiratory/Chest: lungs clear - with moderate air exchange , no accessory muscle use Cardiovascular/Chest: normal peripheral pulses, normal rate Abdomen: normal bowel sounds, non tender, obese , soft, left lower abdomen healed scar, right upper abdomen site of previous ileostomy with dressing, intact ; no evidence of infection , healing Genitourinary/Rectal: s/p catheter - with dark urine Extremities: normal range of motion, non-tender, no calf tenderness, normal capillary refill Neurologic: no motor/sensory deficits, alert, oriented x 3, responsive Musculoskeletal: normal muscle bulk Microbiology Date/Time Source Procedure Growth Status 04/13/20 10:50 Nasopharynx Coronavirus COVID-19 PCR (NILE) - Final Complete 04/12/20 13:34 Nasopharynx SARS-CoV-2 RdRp Gene Assay - Final Complete Laboratory Tests 04/15/20 05:55: White Blood Count 3.0L, Red Blood Count 3.16L, Hemoglobin 8.2L, Hematocrit 25.7L , Mean Corpuscular Volume 81, Mean Corpuscular Hemoglobin 25.9L, Mean Corpuscular Hemoglobin Concent 31.9L, Red Cell Distribution Width 20.5H, Pl atelet Count 216, Mean Platelet Volume 5.6L, Neutrophils (%) (Auto) , Lymphocytes (%) (Auto) , Monocytes (%) (Auto) , Eosinophils (%) (Auto) , Basophils (%) (Auto) , Sodium Level 134L, Potassium Level 3.9, Chloride Level 102, Carbon Dioxide Level 28, Anion Gap 4L, Blood Urea Nitrogen 23H, Creatinine 1.6H, Estimat Glomerular Filtration Rate 42.2, Glucose Level 81, Calcium Level 8.1L Current Medications Medications (Trade) Dose Ordered Sig/Kevon Route PRN Reason Start Time Stop Time Status Last Admin Dose Admin Acetaminophen/ Hydrocodone Bitart ([place] 5/325) 1 tab Q6H PRN ORAL Severe Pain (Pain Scale 7-10) 04/10/20 07:00 04/17/20 06:59 04/14/20 22:51 Alprazolam (Xanax) 0.5 mg TID PRN ORAL For Anxiety 04/15/20 00:12 04/22/20 00:11 Apixaban (Eliquis) 2.5 mg BID ORAL 04/08/20 18:30 07/07/20 18:29 04/14/20 18:04 Atorvastatin Calcium (Lipitor) 10 mg BEDTIME ORAL 04/08/20 21:00 07/07/20 20:59 04/14/20 22:35 Budesonide/ Formoterol Fumarate (Symbicort 160/ 4.5) 2 puff BIDRT INH 04/08/20 10:00 07/07/20 09:59 04/14/20 10:29 Dexamethasone (Decadron) 6 mg DAILY ORAL 04/14/20 09:00 04/23/20 09:01 04/14/20 08:25 Epoetin Paul (Epoetin Paul-EPBX(NON ESRD)) 3,000 unit SUBQ 04/11/20 21:00 07/10/20 20:59 04/13/20 20:23 Epoetin Paul (Epoetin Paul-EPBX(NON ESRD)) 4,000 unit SUBQ 04/11/20 21:00 07/10/20 20:59 04/13/20 20:23 Escitalopram Oxalate (Lexapro) 20 mg DAILY ORAL 04/08/20 09:00 05/08/20 08:59 04/14/20 08:25 Finasteride (Proscar) 5 mg DAILY ORAL 04/08/20 09:00 07/07/20 08:59 04/14/20 08:25 Hydroxyzine HCl (Atarax) 25 mg BIDPRN PRN ORAL Itching 04/08/20 06:00 05/07/20 21:44 Iron Sucrose 100 mg/Sodium Chloride 60 ml @ 240 mls/hr BEDTIME IVPB 04/12/20 21:00 04/16/20 21:14 04/14/20 20:24 Levothyroxine Sodium (Synthroid) 75 mcg DAILY@0630 ORAL 04/08/20 06:30 05/08/20 06:29 04/15/20 06:21 Levothyroxine Sodium (Synthroid) 100 mcg DAILY@0630 ORAL 04/08/20 06:30 05/08/20 06:29 04/15/20 06:21 Ondansetron HCl (Zofran ODT) 8 mg Q8H PRN ORAL Nausea & Vomiting 04/08/20 06:00 05/07/20 21:44 04/14/20 09:15 Oxybutynin Chloride (Ditropan) 10 mg DAILY ORAL 04/08/20 09:00 05/08/20 08:59 04/14/20 08:27 Pantoprazole (Protonix) 40 mg BID ORAL 04/08/20 09:00 05/08/20 08:59 04/14/20 18:04 Patient Own Medication (Patient's Own Med) 1 ea TID ORAL 04/09/20 13:00 05/09/20 12:59 04/14/20 18:04 Tramadol HCl (Ultram) 50 mg Q4H PRN ORAL For Pain 04/09/20 17:00 04/16/20 16:59 04/14/20 18:25 Assessment/Plan Assessment/Plan ASSESSMENT JEWEL on CKD in setting of [facility] Pulmonary HTN /CTEPH COVID 19 infection FTT, unable to care for himself Possible protein calorie malnutrition Metastatic colon Ca with lung mets ( biopsy proven)- on Nivolumab currently Polymicrobial UTI/ Enterobacter, Enterococci -> asymptomatic bacteria / chronic suprapubic catheter E/lyte imbalance : hypo Mg, hypo K Hypotension 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 Hx of perforated diverticulitis with multiple surgeries, s/p recent ileostomy takedown Anemia of chronic disease Moderate pulmonary HTN Chronic bronchitis HTN Obesity Incontinence associated dermatitis PLAN OF CARE MS floor O2 titrate to keep sat > 92 pulm toilet resume home inhaler continue a/c for DVT/PE s/p IVF and diuretic , CKD stable -as per nephro monitor renal parameters, lytes, avoid nephrotoxic, nephro recommends conservative medical management and avoid nephrotoxics monitor HH with goal to keep Hgb > 7, started on EPO, iron panel with low iron and ferritin; on Venofer x5 days Hgb better Venous Duplex BLE NGT cardio follows prior ECHO with pEF s/p bolus 04/13 off Bumex ( discussed with nephro) BP better, although remains on the low side was initially on cefepime UCX + Enterobacter, Enterococci BCX NGTD stool C dif NGT ID eval appreciated per ID asymptomatic bacteriuria, given s/p catheter ; keep off abx rapid COVID 19 04/12 positive isolation pulse ox stable on RA, remains asymptomatic COVID 19 by PCR positive monitor resp status closely; inflam markers not impressive IL6 ordered ( not sure if still perform in this facility as send out test) CRP 4.2 home meds resumed surgery follows skin care as per surgeon recommendations SW for placement PT eval and Rx fall precautions dietary eval GI prophylaxis supportive care dc plan for SNF placement now with known COVID positive case discussed and evaluated by supervising physician Sania Menard NP Apr 15, 2020 09:54 Eliazar Kumar MD Apr 15, 2020 16:20
--- NOTE | 2020-04-15 10:57 | Nephrology Progress Note ---
Assessment/Plan Status: stable Assessment/Plan: A/P 1) CKD 3B- Cr stable at baseline 2) Hypokalemia - corrected 3) Edema- hold bumex due to hypotensiuon 4) Metastatic colon Ca with lung mets ( biopsy proven)- on Nivolumab currently -continue Optivo per PCP 5) Anemia of CKD- EPO and Iron replacement 6) COVID + per ID mgmt Subjective Date patient seen: Apr 15, 2020 Time patient seen: 10:56 ROS Limited/Unobtainable: Yes Allergies: Coded Allergies: LEVOFLOXACIN (Verified Allergy, Severe, throat closes up, 12/15/19) MELOXICAM (Verified Allergy, Severe, throat closes up, 12/15/19) Subjective In COVID isolation Objective Last 24 Hour Vital Signs Date Time Temp Pulse Resp B/P (MAP) Pulse Ox O2 Delivery O2 Flow Rate FiO2 04/15/20 04:00 97.5 69 20 98/62 (74) 94 04/15/20 00:00 97.7 75 19 92/62 (72) 98 04/14/20 23:00 102/57 (72) 04/14/20 21:36 95 Nasal Cannula 2.0 28 04/14/20 21:00 Nasal Cannula 2.0 04/14/20 20:00 97.9 75 20 92/62 (72) 100 04/14/20 16:00 98.8 78 18 101/67 (78) 95 04/14/20 12:00 98.9 86 18 95/60 (72) 95 Intake and Output 04/14/20 04/15/20 19:00 07:00 Intake Total 800 ml 460 ml Output Total 500 ml Balance 800 ml -40 ml Intake Oral 400 ml IV Total 60 ml Other 800 ml Output Urine Total 500 ml # Bowel Movements 1 3 Laboratory Tests 04/15/20 05:55: White Blood Count 3.0L, Red Blood Count 3.16L, Hemoglobin 8.2L, Hematocrit 25.7L , Mean Corpuscular Volume 81, Mean Corpuscular Hemoglobin 25.9L, Mean Corpuscular Hemoglobin Concent 31.9L, Red Cell Distribution Width 20.5H, Platelet Count 216, Mean Platelet Volume 5.6L, Neutrophils (%) (Auto) , Lymphocytes (%) (Auto) , Monocytes (%) (Auto) , Eosinophils (%) (Auto) , Basophils (%) (Auto) , Sodium Level 134L, Potassium Level 3.9, Chloride Level 102, Carbon Dioxide Level 28, Anion Gap 4L, Blood Urea Nitrogen 23H, Creatinine 1.6H, Estimat Glomerular Filtration Rate 42.2, Glucose Level 81, Calcium Level 8.1L Height (Feet): 5 Height (Inches): 7.00 Weight (Pounds): 223 Objective COVID isolation Conserve PPEs Call into room De Javan Borjas MD Apr 15, 2020 10:57
[2020-04-15] MEDS: Eliquis 2.5mg tablet ORAL SCH ×2 (11:03→18:56)
[2020-04-15] MEDS: Oxybutynin 5mg tab ORAL SCH (11:04)
[2020-04-15] MEDS: ADEMPAS 2.5 MG ORAL SCH ×3 (11:04→18:56)
--- NOTE | 2020-04-15 12:53 | Surgery Progress Note ---
Surgery Progress Note Subjective Additional Comments no acute events comfortable stable labs noted dressings going well Objective Last 24 Hour Vital Signs Date Time Temp Pulse Resp B/P (MAP) Pulse Ox O2 Delivery O2 Flow Rate FiO2 04/15/20 12:00 97.0 74 18 81/57 (65) 93 04/15/20 10:40 98.6 72 20 85/57 (66) 92 04/15/20 08:00 98.0 75 18 91/55 (67) 96 04/15/20 04:00 97.5 69 20 98/62 (74) 94 04/15/20 00:00 97.7 75 19 92/62 (72) 98 04/14/20 23:00 102/57 (72) 04/14/20 21:36 95 Nasal Cannula 2.0 28 04/14/20 21:00 Nasal Cannula 2.0 04/14/20 20:00 97.9 75 20 92/62 (72) 100 04/14/20 16:00 98.8 78 18 101/67 (78) 95 I&O Intake and Output 04/14/20 04/15/20 19:00 07:00 Intake Total 800 ml 460 ml Output Total 500 ml Balance 800 ml -40 ml Intake Oral 400 ml IV Total 60 ml Other 800 ml Output Urine Total 500 ml # Bowel Movements 1 3 Dressing: saturated Cardiovascular: RSR Respiratory: decreased breath sounds Abdomen: non-tender, present bowel sounds, non-distended Extremities: edema, no tenderness, no cyanosis, other Laboratory Tests Test 04/15/20 05:55 White Blood Count 3.0 K/UL (4.8-10.8) L Red Blood Count 3.16 M/UL (4.70-6.10) L Hemoglobin 8.2 G/DL (14.2-18.0) L Hematocrit 25.7 % (42.0-52.0) L Mean Corpuscular Volume 81 FL (80-99) Mean Corpuscular Hemoglobin 25.9 PG (27.0-31.0) L Mean Corpuscular Hemoglobin Concent 31.9 G/DL (32.0-36.0) L Red Cell Distribution Width 20.5 % (11.6-14.8) H Platelet Count 216 K/UL (150-450) Mean Platelet Volume 5.6 FL (6.5-10.1) L Neutrophils (%) (Auto) % (45.0-75.0) Lymphocytes (%) (Auto) % (20.0-45.0) Monocytes (%) (Auto) % (1.0-10.0) Eosinophils (%) (Auto) % (0.0-3.0) Basophils (%) (Auto) % (0.0-2.0) Sodium Level 134 MMOL/L (136-145) L Potassium Level 3.9 MMOL/L (3.5-5.1) Chloride Level 102 MMOL/L (98-107) Carbon Dioxide Level 28 MMOL/L (21-32) Anion Gap 4 mmol/L (5-15) L Blood Urea Nitrogen 23 mg/dL (7-18) H Creatinine 1.6 MG/DL (0.55-1.30) H Estimat Glomerular Filtration Rate 42.2 mL/min (>60) Glucose Level 81 MG/DL (74-106) Calcium Level 8.1 MG/DL (8.5-10.1) L Plan Problems: (1) Hypomagnesemia (2) UTI (urinary tract infection) (3) Hypokalemia (4) Renal insufficiency (5) Unable to ambulate (6) Incontinence associated dermatitis Assessment & Plan: Patient status post recent ostomy takedown has been recovering at home but was declining difficulty with breathing and ambulating came to emergency department [facility] was admitted. He is still havi ng difficulty with ambulating working with physical therapy. In his current state he is eating though he does not like the food and he is having loose bowel movements. Unfortunately is unable go to the bathroom is been sitting is with bowel movements and has noted some itching in the perirectal region on identification being noted to have gone associated dermatitis. I discussion with the patient regarding 2 bowel movements call light and assistance. Nursing staff aware. Please monitor for incontinence clean accordingly. Turn every 2 hours. Incentive spirometry. Offload pressures as possible. Keep heels elevated with pillows while in bed. Respiratory therapy. Thank you will follow the recommendations ostomy dressings BID with gauze packing and dressings (7) Decubital ulcer Assessment & Plan: Pt presented on admission with Full thickness stage 3 Pressure Injury. Pt stated "I have had wound for a couple of weeks." Full thickness Pressure Injury L Ischium.(L)0.8cm x (W)2cm x (D)0.2cm. Base of wound is amber with scattered slough. .Edges are macerated. Small amt serosanguineous exudate. No odor noted. Periwound is erythematous. No elevation in skin temp noted. No evidence of sacral Skin breakdown noted. R and And L heels are firm ,dry and blanchable. 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 Pt stated he is not capable of repositioning self without staff asst. Pt also declined to be positioned on his side. Pt was offered AN APM/JIN Mattress but pt also declined Surface support mattress. Tx.Plan: Cleanse L Ischial wound with Saline. Apply Therahoney. Apply Moisture Barrier Paste periwound. Cover with Optifoam drsg. every 3 days and prn. Apply Moisture Barrier Paste to Sacrum. Cover with Optifoam drsg. Change every 3 days and prn. Apply Cavilon Skin Barrier to both heels. Cover each heel with Optifoam drsg. Change every 7 days and prn. Reposition at least every 2hours or as tolerated. Off-load heels with Pillow. Jeremiah Gonzales Apr 15, 2020 12:53
[2020-04-15] MEDS: ALPRAZolam 0.5mg tab ORAL PRN ×2 (14:11→23:55)
[2020-04-15] MEDS ORDERED: NS 500ML ONE (15:52)
--- NOTE | 2020-04-15 16:30 | NUR ---
CASE MANAGEMENT:REVIEW SI; FTT. METASTATIC CA. COVID-19 (+) VIRAL INFECTION 98.6 75 20 81/57 92% 2L BC H/H 8.2/25.7 NA 134 BUN 23 CR 1.6 IS;IVF NS BOLUS XANAX TID PRN DECADRON PO QD VENOFER IV HS EPOETIN KENDELL SQ M/W/F SYNTHROID PO QD PROTONIX PO BID MED SURG STATUS DCP;FROM HOME PLAN; SNF PLACEMENT
--- NOTE | 2020-04-15 19:02 | NUR ---
NURSE HAND-OFF: Important Events on Shift:NS 500 ml Bolus x1, Up to chair x3 hours, Xanax given x1 per patient request Patient Status: stable Diet: Regular Pending Orders: none Pending Results/Labs:none Pending MD notification:none Latest Vital Signs: Temperature 97.7 , Pulse 73 , B/P 90 /63 , Respiratory Rate 18 , O2 SAT 94 , Nasal Cannula, O2 Flow Rate 2.0 . Vital Sign Comment: none Latest Chan Fall Score: 60 Fall Risk: High Risk Safety Measures: Call light Within Reach, Bed Alarm Zone 1, Side Rails Side Rails x2, Bed position Low and Locked. Fall Precautions: Yellow Socks Door Sign Patient Fall Education Report given to Leo VALENTIN.
--- NOTE | 2020-04-15 19:40 | NUR ---
NURSE NOTES: Pt received from HOMERO Gambino. Pt. AAOx4, breathing even and unlabored on room air, no indications of SOB, no indications of pain. IV noted left upper arm 20g, saline locked. Suprapubic intact, draining urine well. Bed low and locked, side rails x3 up, bed alarm active, and call light in reach.
[2020-04-15] MEDS: traMADol 50mg tab ORAL PRN (21:20)
[2020-04-15] MEDS: HydrOXYzine tab 25mg tab ORAL PRN (21:20)
[2020-04-15] MEDS: Iron Sucrose 100 MG in NS 55 ML IVPB SCH (21:21)
[2020-04-15] MEDS: Epoetin Alfa-EPBX (NON ESRD)4000 units/ml vial SUBQ SCH (21:21)
[2020-04-15] MEDS: Epoetin Alfa-EPBX (NON ESRD) 3000 units/ml vial SUBQ SCH (21:21)
[2020-04-16] VITALS: BP 109/70
[2020-04-16 04:00] VITALS: BP 118/69
[2020-04-16] MEDS: traMADol 50mg tab ORAL PRN (05:37)
--- NOTE | 2020-04-16 07:30 | NUR ---
NURSE NOTES: Received patient A/A/Ox4, in bed semi orellana's position. breathing even and unlabored on room air, no apparent disctress noted. PIV noted left upper arm 20g, patent and intact. saline locked. Suprapubic intact, draining urine well with dark mali colored urine. Bed low and locked, side rails x3 up, bed alarm active, and call light in reach. will cont to monitor.
--- NOTE | 2020-04-16 07:36 | Infectious Diseases Prog Note ---
Assessment/Plan 74yo M with: COVID positive On RA, asymptomatic 04/12 Rapid COVID positive 04/13 COVID PCR positive CXR: Linear right lung opacities likely represent areas of scarring. No definite acute infiltrates. No effusions. Heart size is upper limits of normal. Mild narrowing of the trachea is again noted No significant interim change Afebrile Normal WBC R/o UTI SPC 04/07 BCx NTD UA 20-30 WBC, UCx +Enterobacter aerogenes & E.faecalis 04/08 C.dif neg CXR: Prominent mediastinum with apparent smooth caliber change of the mid trachea; mediastinum mass or lymphadenopathy is not excluded. BLE swelling US neg for DVT JEWEL on CKD PMH: pHTN/CTEPH Metastatic colon CA on nivolumab tx, last dose 2 months ago, overdue for next dose H/o DVT and PE H/o perforated diverticulitis, s/p multiple surgeries, s/p recent ileostomy takedown HTN Obesity Plan: Cont dexamethasone 6mg daily (hold pt's home pred 5mg for now) #3/10 Trend O2 sat, if worsening will start remdesivir Cont to monitor off abx Would not treat +UCx. Pt's with SPC are always colonized with bacteria in their urine, and in the absence of any sx (pt without fevers/chills, leukocytosis nor urinary sx or abd pain) would not treat Monitor CBC/CMP Monitor resp status Monitor temp curve, hemodynamics D/w RN Thank you for this consult. [facility] will continue to follow. Subjective Allergies: Coded Allergies: LEVOFLOXACIN (Verified Allergy, Severe, throat closes up, 12/15/19) MELOXICAM (Verified Allergy, Severe, throat closes up, 12/15/19) AF Doing well on RA NAD Objective Last 24 Hour Vital Signs Date Time Temp Pulse Resp B/P (MAP) Pulse Ox O2 Delivery O2 Flow Rate FiO2 04/16/20 04:00 97.9 80 17 118/69 (85) 92 04/16/20 00:00 97.2 77 17 109/70 (83) 96 04/15/20 21:00 Room Air 04/15/20 20:19 94 Room Air 21 04/15/20 20:00 98.2 78 17 98/60 (73) 94 04/15/20 16:00 97.7 73 18 90/63 (72) 94 04/15/20 14:05 71 93/57 (69) 04/15/20 12:00 97.0 74 18 81/57 (65) 93 04/15/20 10:40 98.6 72 20 85/57 (66) 92 04/15/20 09:00 Room Air 04/15/20 08:00 98.0 75 18 91/55 (67) 96 Height (Feet): 5 Height (Inches): 7.00 Weight (Pounds): 223 Gen: NAD HEENT: NCAT Pulm: BL chest rise on RA Abd: Soft, NTND, +SPC Ext: 1-2+ BLE pitting edema Skin: No visible rashes, BLE venous stasis skin changes Neuro: Awake, alert, interactive Microbiology Date/Time Source Procedure Growth Status 04/13/20 10:50 Nasopharynx Coronavirus COVID-19 PCR (NILE) - Final Complete Current Medications Medications (Trade) Dose Ordered Sig/Kevon Route PRN Reason Start Time Stop Time Status Last Admin Dose Admin Acetaminophen/ Hydrocodone Bitart ([place] 5/325) 1 tab Q6H PRN ORAL Severe Pain (Pain Scale 7-10) 04/10/20 07:00 04/17/20 06:59 04/14/20 22:51 Alprazolam (Xanax) 0.5 mg TID PRN ORAL For Anxiety 04/15/20 00:12 04/22/20 00:11 04/15/20 23:55 Apixaban (Eliquis) 2.5 mg BID ORAL 04/08/20 18:30 07/07/20 18:29 04/15/20 18:56 Atorvastatin Calcium (Lipitor) 10 mg BEDTIME ORAL 04/08/20 21:00 07/07/20 20:59 04/15/20 21:20 Budesonide/ Formoterol Fumarate (Symbicort 160/ 4.5) 2 puff BIDRT INH 04/08/20 10:00 07/07/20 09:59 04/15/20 21:29 Dexamethasone (Decadron) 6 mg DAILY ORAL 04/14/20 09:00 04/23/20 09:01 04/15/20 11:03 Epoetin Paul (Epoetin Paul-EPBX(NON ESRD)) 3,000 unit MON-WED-SAT SUBQ 04/11/20 21:00 07/10/20 20:59 04/15/20 21:21 Epoetin Paul (Epoetin Paul-EPBX(NON ESRD)) 4,000 unit SUBQ 04/11/20 21:00 07/10/20 20:59 04/15/20 21:21 Escitalopram Oxalate (Lexapro) 20 mg DAILY ORAL 04/08/20 09:00 05/08/20 08:59 04/15/20 11:03 Finasteride (Proscar) 5 mg DAILY ORAL 04/08/20 09:00 07/07/20 08:59 04/15/20 11:03 Hydroxyzine HCl (Atarax) 25 mg BIDPRN PRN ORAL Itching 04/08/20 06:00 05/07/20 21:44 04/15/20 21:20 Iron Sucrose 100 mg/Sodium Chloride 60 ml @ 240 mls/hr BEDTIME IVPB 04/12/20 21:00 04/16/20 21:14 04/15/20 21:21 Levothyroxine Sodium (Synthroid) 75 mcg DAILY@0630 ORAL 04/08/20 06:30 05/08/20 06:29 04/16/20 05:37 Levothyroxine Sodium (Synthroid) 100 mcg DAILY@0630 ORAL 04/08/20 06:30 05/08/20 06:29 04/16/20 05:37 Ondansetron HCl (Zofran ODT) 8 mg Q8H PRN ORAL Nausea & Vomiting 04/08/20 06:00 05/07/20 21:44 04/14/20 09:15 Oxybutynin Chloride (Ditropan) 10 mg DAILY ORAL 04/08/20 09:00 05/08/20 08:59 04/15/20 11:04 Pantoprazole (Protonix) 40 mg BID ORAL 04/08/20 09:00 05/08/20 08:59 04/15/20 18:56 Patient Own Medication (Patient's Own Med) 1 ea TID ORAL 04/09/20 13:00 05/09/20 12:59 04/15/20 18:56 Tramadol HCl (Ultram) 50 mg Q4H PRN ORAL For Pain 04/09/20 17:00 04/16/20 16:59 04/16/20 05:37 Tammy Cruz M.D. Apr 16, 2020 07:36
--- NOTE | 2020-04-16 07:40 | NUR ---
NURSE HAND-OFF: Important Events on Shift:[pt. with bowel movement, stable and alert] Patient Status: awake Diet: low sodium Pending Orders: na Pending Results/Labs:na Pending MD notification:na Latest Vital Signs: Temperature 97.9 , Pulse 80 , B/P 118 /69 , Respiratory Rate 17 , O2 SAT 92 , Nasal Cannula, O2 Flow Rate 2.0 . Vital Sign Comment: stable Latest Chan Fall Score: 60 Fall Risk: High Risk Safety Measures: Call light Within Reach, Bed Alarm Zone 1, Side Rails Side Rails x3, Bed position Low and Locked. Fall Precautions: Yellow Socks Door Sign Patient Fall Education Report given to JASON Clemente.
[2020-04-16 08:00] VITALS: BP 102/83
[2020-04-16] MEDS: Eliquis 2.5mg tablet ORAL SCH ×2 (08:26→17:12)
[2020-04-16] MEDS: Oxybutynin 5mg tab ORAL SCH (08:27)
--- NOTE | 2020-04-16 08:51 | Pulmonology Progress Note ---
Subjective ROS Limited/Unobtainable: Yes Allergies: Coded Allergies: LEVOFLOXACIN (Verified Allergy, Severe, throat closes up, 12/15/19) MELOXICAM (Verified Allergy, Severe, throat closes up, 12/15/19) Subjective afebrile denies CP, SOB COVID 19 by PCR positive as well remains asymptomatic in regards to COVID 19 BP at baseline after bolus 04/15 Objective Last 24 Hour Vital Signs Date Time Temp Pulse Resp B/P (MAP) Pulse Ox O2 Delivery O2 Flow Rate FiO2 04/16/20 08:00 98.3 82 18 102/83 (89) 92 04/16/20 04:00 97.9 80 17 118/69 (85) 92 04/16/20 00:00 97.2 77 17 109/70 (83) 96 04/15/20 21:00 Room Air 04/15/20 20:19 94 Room Air 21 04/15/20 20:00 98.2 78 17 98/60 (73) 94 04/15/20 16:00 97.7 73 18 90/63 (72) 94 04/15/20 14:05 71 93/57 (69) 04/15/20 12:00 97.0 74 18 81/57 (65) 93 04/15/20 10:40 98.6 72 20 85/57 (66) 92 04/15/20 09:00 Room Air Intake and Output 04/15/20 04/16/20 19:00 07:00 Intake Total 1020 ml Output Total 1800 ml Balance -780 ml IV Total 60 ml Other 960 ml Output Urine Total 1800 ml # Bowel Movements 1 2 Objective General Appearance: no apparent distress, alert oriented x3 Lines, tubes and drains: peripheral HEENT: normocephalic, atraumatic, anicteric, mucous membranes moist Neck: non-tender, supple Respiratory/Chest: lungs clear - with moderate air exchange , no accessory muscle use Cardiovascular/Chest: normal peripheral pulses, normal rate Abdomen: normal bowel sounds, non tender, obese , soft, left lower abdomen healed scar, right upper abdomen site of previous ileostomy with dressing, intact ; no evidence of infection , healing Genitourinary/Rectal: s/p catheter with dark urine Extremities: normal range of motion, non-tender, no calf tenderness, normal capillary refill Neurologic: no motor/sensory deficits, alert, oriented x 3, responsive Musculoskeletal: normal muscle bulk Microbiology Date/Time Source Procedure Growth Status 04/13/20 10:50 Nasopharynx Coronavirus COVID-19 PCR (NILE) - Final Complete Current Medications Medications (Trade) Dose Ordered Sig/Kevon Route PRN Reason Start Time Stop Time Status Last Admin Dose Admin Acetaminophen/ Hydrocodone Bitart ([place] 5/325) 1 tab Q6H PRN ORAL Severe Pain (Pain Scale 7-10) 04/10/20 07:00 04/17/20 06:59 04/14/20 22:51 Alprazolam (Xanax) 0.5 mg TID PRN ORAL For Anxiety 04/15/20 00:12 04/22/20 00:11 04/15/20 23:55 Apixaban (Eliquis) 2.5 mg BID ORAL 04/08/20 18:30 07/07/20 18:29 04/16/20 08:26 Atorvastatin Calcium (Lipitor) 10 mg BEDTIME ORAL 04/08/20 21:00 07/07/20 20:59 04/15/20 21:20 Budesonide/ Formoterol Fumarate (Symbicort 160/ 4.5) 2 puff BIDRT INH 04/08/20 10:00 07/07/20 09:59 04/15/20 21:29 Dexamethasone (Decadron) 6 mg DAILY ORAL 04/14/20 09:00 04/23/20 09:01 04/16/20 08:27 Epoetin Paul (Epoetin Paul-EPBX(NON ESRD)) 3,000 unit -SAT SUBQ 04/11/20 21:00 07/10/20 20:59 04/15/20 21:21 Epoetin Paul (Epoetin Paul-EPBX(NON ESRD)) 4,000 unit SAT-SAT-SAT SUBQ 04/11/20 21:00 07/10/20 20:59 04/15/20 21:21 Escitalopram Oxalate (Lexapro) 20 mg DAILY ORAL 04/08/20 09:00 05/08/20 08:59 04/16/20 08:26 Finasteride (Proscar) 5 mg DAILY ORAL 04/08/20 09:00 07/07/20 08:59 04/16/20 08:27 Hydroxyzine HCl (Atarax) 25 mg BIDPRN PRN ORAL Itching 04/08/20 06:00 05/07/20 21:44 04/15/20 21:20 Iron Sucrose 100 mg/Sodium Chloride 60 ml @ 240 mls/hr BEDTIME IVPB 04/12/20 21:00 04/16/20 21:14 04/15/20 21:21 Levothyroxine Sodium (Synthroid) 75 mcg DAILY@0630 ORAL 04/08/20 06:30 05/08/20 06:29 04/16/20 05:37 Levothyroxine Sodium (Synthroid) 100 mcg DAILY@0630 ORAL 04/08/20 06:30 05/08/20 06:29 04/16/20 05:37 Ondansetron HCl (Zofran ODT) 8 mg Q8H PRN ORAL Nausea & Vomiting 04/08/20 06:00 05/07/20 21:44 04/14/20 09:15 Oxybutynin Chloride (Ditropan) 10 mg DAILY ORAL 04/08/20 09:00 05/08/20 08:59 04/16/20 08:27 Pantoprazole (Protonix) 40 mg BID ORAL 04/08/20 09:00 05/08/20 08:59 04/16/20 08:27 Patient Own Medication (Patient's Own Med) 1 ea TID ORAL 04/09/20 13:00 05/09/20 12:59 04/15/20 18:56 Tramadol HCl (Ultram) 50 mg Q4H PRN ORAL For Pain 04/09/20 17:00 04/16/20 16:59 04/16/20 05:37 Assessment/Plan Assessment/Plan ASSESSMENT JEWEL on CKD in setting of RCC Pulmonary HTN /CTEPH COVID 19 infection FTT, unable to care for himself Possible protein calorie malnutrition Metastatic colon Ca with lung mets ( biopsy proven)- on Nivolumab currently Polymicrobial UTI/ Enterobacter, Enterococci -> asymptomatic bacteria / chronic suprapubic catheter E/lyte imbalance : hypo Mg, hypo K Hypotension 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 Hx of perforated diverticulitis with multiple surgeries, s/p recent ileostomy takedown Anemia of chronic disease Moderate pulmonary HTN Chronic bronchitis HTN Obesity Incontinence associated dermatitis PLAN OF CARE MS floor O2 titrate to keep sat > 92 pulm toilet resume home inhaler continue a/c for DVT/PE s/p IVF and diuretic , CKD stable -as per nephro monitor renal parameters, lytes, avoid nephrotoxic, nephro recommends conservative medical management and avoid nephrotoxics monitor HH with goal to keep Hgb > 7, started on EPO, Venofer x 5 days till 04/16 Hgb stable Venous Duplex BLE NGT cardio follows prior ECHO with pEF s/p bolus 04/13 and 04/15 off Bumex ( discussed with nephro) BP better, although remains on the low side was initially on cefepime UCX + Enterobacter, Enterococci BCX NGTD stool C dif NGT ID eval appreciated per ID asymptomatic bacteriuria, given s/p catheter ; keep off abx rapid COVID 19 04/12 positive isolation pulse ox stable on RA, remains asymptomatic COVID 19 by PCR positive monitor resp status closely; inflam markers not impressive IL6 ordered ( not sure if still perform in this facility as send out test) CRP 4.2 a/c with Eliquis home meds resumed surgery follows skin care as per surgeon recommendations SW for placement PT eval and Rx fall precautions dietary eval GI prophylaxis supportive care dc plan for SNF placement now with known COVID positive case discussed and evaluated by supervising physician Sania Menard NP Apr 16, 2020 08:51 Eliazar Kumar MD Apr 16, 2020 12:24
--- NOTE | 2020-04-16 09:44 | Cardiology Progress Note ---
Assessment/Plan Assessment/Plan 1. New COVID-19 2. Colon CA with metastasis, on Nivolumab s/o ileostomy takedown 03/14/20 3. RCC with JEWEL on CKD 4. HFpEF, EF 69% per recent echo done at [facility] 03/14/2020 BNP 454 troponin negative Bumex for diuresis 5. HTN - well controlled 6. 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 7. Anemia of chronic disease 8. SOB and weakness at admission No acute distress. Leg edema improved after diuresis and leg elevation, VUS negative for acute thrombus. Subjective Cardiovascular: Reports: edema Respiratory: Reports: shortness of breath Gastrointestinal/Abdominal: Reports: poor appetite Genitourinary: Reports: no symptoms Subjective COVID-10 positive after admission, no interval change Objective Last 24 Hour Vital Signs Date Time Temp Pulse Resp B/P (MAP) Pulse Ox O2 Delivery O2 Flow Rate FiO2 04/16/20 08:00 98.3 82 18 102/83 (89) 92 04/16/20 04:00 97.9 80 17 118/69 (85) 92 04/16/20 00:00 97.2 77 17 109/70 (83) 96 04/15/20 21:00 Room Air 04/15/20 20:19 94 Room Air 21 04/15/20 20:00 98.2 78 17 98/60 (73) 94 04/15/20 16:00 97.7 73 18 90/63 (72) 94 04/15/20 14:05 71 93/57 (69) 04/15/20 12:00 97.0 74 18 81/57 (65) 93 04/15/20 10:40 98.6 72 20 85/57 (66) 92 General Appearance: no apparent distress EENT: PERRL/EOMI Neck: no JVD Rhythm: NSR Cardiovascular: normal rate, regular rhythm Respiratory/Chest: no respiratory distress, no accessory muscle use Extremities: moderate edema Intake and Output 04/15/20 04/16/20 19:00 07:00 Intake Total 1020 ml Output Total 1800 ml Balance -780 ml IV Total 60 ml Other 960 ml Output Urine Total 1800 ml # Bowel Movements 1 2 Microbiology Date/Time Source Procedure Growth Status 04/13/20 10:50 Nasopharynx Coronavirus COVID-19 PCR (NILE) - Final Complete Luca,Beatriz PA-C Apr 16, 2020 09:44
[2020-04-16] MEDS: ALPRAZolam 0.5mg tab ORAL PRN ×2 (10:50→22:13)
[2020-04-16] MEDS: ADEMPAS 2.5 MG ORAL SCH ×3 (10:50→17:13)
[2020-04-16 12:00] VITALS: BP 105/63
--- NOTE | 2020-04-16 14:55 | NUR ---
NURSE NOTES: wound care treatment and photo taken and uploaded. will cont to monitor.
[2020-04-16 16:00] VITALS: BP 109/73
[2020-04-16] MEDS: HYDROcodone/Acetamin 5/325 tab ORAL PRN (17:17)
--- NOTE | 2020-04-16 18:22 | Surgery Progress Note ---
Surgery Progress Note Subjective Symptoms: improved, tolerating diet, passing flatus Objective Last 24 Hour Vital Signs Date Time Temp Pulse Resp B/P (MAP) Pulse Ox O2 Delivery O2 Flow Rate FiO2 04/16/20 17:47 97.3 04/16/20 16:00 97.3 76 19 109/73 (85) 97 04/16/20 12:00 98.3 69 20 105/63 (77) 98 04/16/20 09:00 Room Air 04/16/20 08:00 98.3 82 18 102/83 (89) 92 04/16/20 07:04 93 Room Air 21 04/16/20 04:00 97.9 80 17 118/69 (85) 92 04/16/20 00:00 97.2 77 17 109/70 (83) 96 04/15/20 21:00 Room Air 04/15/20 20:19 94 Room Air 21 04/15/20 20:00 98.2 78 17 98/60 (73) 94 I&O Intake and Output 04/15/20 04/16/20 19:00 07:00 Intake Total 1020 ml Output Total 1800 ml Balance -780 ml IV Total 60 ml Other 960 ml Output Urine Total 1800 ml # Bowel Movements 1 2 Dressing: saturated Cardiovascular: RSR Respiratory: decreased breath sounds Abdomen: non-tender, present bowel sounds, other, non-distended Extremities: edema, no tenderness, no cyanosis Plan Problems: (1) Hypomagnesemia (2) UTI (urinary tract infection) (3) Hypokalemia (4) Renal insufficiency (5) Unable to ambulate (6) Incontinence associated dermatitis Assessment & Plan: Patient status post recent ostomy takedown has been recovering at home but was declining difficulty with breathing and ambulating came to emergency department [facility] was admitted. He is still having difficulty with ambulating working with physical therapy. In his current state he is eating though he does not like the food and he is having loose bowel movements. Unfortunately is unable go to the bathroom is been sitting is with bowel movements and has noted some itching in the perirectal region on identification being noted to have gone associated dermatitis. I discussion with the patient regarding 2 bowel movements call light and assistance. Nursing staff aware. Please monitor for incontinence clean accordingly. Turn every 2 hours. Incentive spirometry. Offload pressures as possible. Keep heels elevated with pillows while in bed. Respiratory therapy. Thank you will follow the recommendations ostomy dressings BID with gauze packing and dressings (7) Decubital ulcer Assessment & Plan: Pt presented on admission with Full thickness stage 3 Pressure Injury. Pt stated "I have had wound for a couple of weeks." Full thickness Pressure Injury L Ischium.(L)0.8cm x (W)2cm x (D)0.2cm. Base of wound is amber with scattered slough. .Edges are macerated. Small amt serosanguineous exudate. No odor noted. Periwound is erythematous. No elevation in skin temp noted. No evidence of sacral Skin breakdown noted. R and And L heels are firm ,dry and blanchable. 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 Pt stated he is not capable of repositioning self without staff asst. Pt also declined to be positioned on his side. Pt was offered AN APM/JIN Mattress but pt also declined Surface support mattress. Tx.Plan: Cleanse L Ischial wound with Saline. Apply Therahoney. Apply Moisture Barrier Paste periwound. Cover with Optifoam drsg. every 3 days and prn. Apply Moisture Barrier Paste to Sacrum. Cover with Optifoam drsg. Change every 3 days and prn. Apply Cavilon Skin Barrier to both heels. Cover each heel with Optifoam drsg. Change every 7 days and prn. Reposition at least every 2hours or as tolerated. Off-load heels with Pillow. Jeremiah Gonzales Apr 16, 2020 18:22
--- NOTE | 2020-04-16 19:09 | NUR ---
NURSE HAND-OFF: Important Events on Shift:[pain managed; wound care treatment; ] Patient Status: [stable] Diet: [low NA] Pending Orders: [labs] Pending Results/Labs:[in am] Pending MD notification:[] Latest Vital Signs: Temperature 97.3 , Pulse 76 , B/P 109 /73 , Respiratory Rate 19 , O2 SAT 97 , Nasal Cannula, O2 Flow Rate 2.0 . Vital Sign Comment: [] Latest Chan Fall Score: 60 Fall Risk: High Risk Safety Measures: Call light Within Reach, Bed Alarm Zone 2, Side Rails Side Rails x3, Bed position Low and Locked. Fall Precautions: Yellow Socks Door Sign Patient Fall Education Report given to [Tru].
[2020-04-16 20:00] VITALS: BP 141/61
--- NOTE | 2020-04-16 20:01 | NUR ---
NURSE NOTES: Patient in bed, awake, alert and verbally responsive. Bedbound, unable to ambulate. Kept clean and comfortable. Noted with suprapubic catheter, Respiration is even , nasal cannula. . Skin is warm and dry to touch. Ileostomy, noted. Multiple dressings noted, intact. Abdomen is soft. Bed in low and locked position. Provided safe environment. Call light is at bedside. Will continue plan of care.
[2020-04-16] MEDS: Iron Sucrose 100 MG in NS 55 ML IVPB SCH (22:13)
[2020-04-17] VITALS: BP 115/73
--- NOTE | 2020-04-17 00:35 | NUR ---
NURSE NOTES: Complains of insomnia, called primary MD, new order received.
[2020-04-17] MEDS: Zolpidem 5mg tab ORAL PRN ×2 (01:04→21:51)
[2020-04-17] MEDS: HydrOXYzine tab 25mg tab ORAL PRN ×2 (02:26→21:56)
[2020-04-17 04:00] VITALS: BP 113/74
--- NOTE | 2020-04-17 07:14 | NUR ---
NURSE NOTES: Report received from HOMERO Ott. Patient awake in bed, alert and oriented x 4, no SOB, bed in lowest position with breaks engaged and alarm on, denies any pain and discomfort at this time, IV line present on RASHEL, on contact and droplet precautions for COVID 19. Suprapubic catheter in place, on room air, will continue to monitor and proceed with plan of care, call light within reach.
--- NOTE | 2020-04-17 07:22 | NUR ---
NURSE HAND-OFF: Important Events on Shift:WNL Patient Status: Diet: Low NA Pending Orders: Labs Pending Results/Labs: Pending MD notification: Latest Vital Signs: Temperature 97.7 , Pulse 70 , B/P 113 /74 , Respiratory Rate 20 , O2 SAT 95 , Nasal Cannula, O2 Flow Rate 2.0 . Vital Sign Comment: WNL Latest Chan Fall Score: 60 Fall Risk: High Risk Safety Measures: Call light Within Reach, Bed Alarm Zone 1, Side Rails Side Rails x3, Bed position Low and Locked. Fall Precautions: Yellow Socks Door Sign Patient Fall Education Report given to HOMERO Bhatti.
[2020-04-17 07:58] LABS: EOSINOPHILS % (AUTO) 0.1 % (0.0-3.0); HEMATOCRIT 28.5 % (42.0-52.0); HEMOGLOBIN 8.7 G/DL (14.2-18.0); LYMPHOCYTES % (AUTO) 22.1 % (20.0-45.0); MEAN CORPUSCULAR VOLUME 85 FL (80-99); MONOCYTES % (AUTO) 6.6 % (1.0-10.0); NEUTROPHILS % (AUTO) 70.2 % (45.0-75.0); PLATELET COUNT 233 K/UL (150-450); RED BLOOD COUNT 3.34 M/UL (4.70-6.10); RED CELL DISTRIBUTION WIDTH 20.5 % (11.6-14.8); WHITE BLOOD COUNT 4.4 K/UL (4.8-10.8)
[2020-04-17 08:00] VITALS: BP 112/67
[2020-04-17 08:12] LABS: CREATININE 1.6 MG/DL (0.55-1.30); POTASSIUM 3.4 MMOL/L (3.5-5.1)
[2020-04-17] MEDS: Oxybutynin 5mg tab ORAL SCH (09:10)
[2020-04-17] MEDS: Eliquis 2.5mg tablet ORAL SCH ×2 (09:10→17:55)
[2020-04-17] MEDS: ADEMPAS 2.5 MG ORAL SCH ×3 (09:10→17:57)
[2020-04-17] MEDS: ALPRAZolam 0.5mg tab ORAL PRN ×2 (09:18→17:55)
--- NOTE | 2020-04-17 09:51 | Pulmonology Progress Note ---
Subjective ROS Limited/Unobtainable: No Allergies: Coded Allergies: LEVOFLOXACIN (Verified Allergy, Severe, throat closes up, 12/15/19) MELOXICAM (Verified Allergy, Severe, throat closes up, 12/15/19) Subjective afebrile denies CP, SOB COVID 19 by PCR positive as well remains asymptomatic in regards to COVID 19 pulse ox stable on RA BP better dc plan in progress Objective Last 24 Hour Vital Signs Date Time Temp Pulse Resp B/P (MAP) Pulse Ox O2 Delivery O2 Flow Rate FiO2 04/17/20 09:00 Room Air 04/17/20 08:00 98.2 82 19 112/67 (82) 93 04/17/20 04:00 97.7 70 20 113/74 (87) 95 04/17/20 00:00 97.5 88 20 115/73 (87) 93 04/16/20 21:00 Room Air 04/16/20 20:00 97.4 80 19 141/61 (87) 93 04/16/20 17:47 97.3 04/16/20 16:00 97.3 76 19 109/73 (85) 97 04/16/20 12:00 98.3 69 20 105/63 (77) 98 Intake and Output 04/16/20 04/17/20 19:00 07:00 Intake Total 720 ml 1060 ml Output Total 2000 ml 1000 ml Balance -1280 ml 60 ml Intake Oral 720 ml 1000 ml IV Total 60 ml Output Urine Total 2000 ml 1000 ml # Bowel Movements 2 Objective General Appearance: no apparent distress, alert oriented x3 Lines, tubes and drains: peripheral HEENT: normocephalic, atraumatic, anicteric, mucous membranes moist Neck: non-tender, supple Respiratory/Chest: lungs clear - with moderate air exchange , no accessory muscle use Cardiovascular/Chest: normal peripheral pulses, normal rate Abdomen: normal bowel sounds, non tender, obese , soft, left lower abdomen healed scar, right upper abdomen site of previous ileostomy with dressing, intact ; no evidence of infection , healing Genitourinary/Rectal: s/p catheter with dark urine Extremities: normal range of motion, non-tender, no calf tenderness, normal capillary refill Neurologic: no motor/sensory deficits, alert, oriented x 3, responsive Musculoskeletal: normal muscle bulk Laboratory Tests 04/17/20 06:00: White Blood Count 4.4L, Red Blood Count 3.34L, Hemoglobin 8.7L, Hematocrit 28.5L , Mean Corpuscular Volume 85, Mean Corpuscular Hemoglobin 26.2L, Mean Corpuscular Hemoglobin Concent 30.6L, Red Cell Distribution Width 20.5H, Platelet Count 233, Mean Platelet Volume 5.4L, Neutrophils (%) (Auto) 70.2, Lymphocytes (%) (Auto) 22.1, Monocytes (%) (Auto) 6.6, Eosinophils (%) (Auto) 0.1, Basophils (%) (Auto) 1.0, Sodium Level 137, Potassium Level 3.4L, Chloride Level 103, Carbon Dioxide Level 28, Anion Gap 6, Blood Urea Nitrogen 25H, Creatinine 1.6H, Estimat Glomerular Filtration Rate 42.2, Glucose Level 64L, Calcium Level 8.0L Current Medications Medications (Trade) Dose Ordered Sig/Kevon Route PRN Reason Start Time Stop Time Status Last Admin Dose Admin Alprazolam (Xanax) 0.5 mg TID PRN ORAL For Anxiety 04/15/20 00:12 04/22/20 00:11 04/17/20 09:18 Apixaban (Eliquis) 2.5 mg BID ORAL 04/08/20 18:30 07/07/20 18:29 04/17/20 09:10 Atorvastatin Calcium (Lipitor) 10 mg BEDTIME ORAL 04/08/20 21:00 07/07/20 20:59 04/16/20 22:13 Budesonide/ Formoterol Fumarate (Symbicort 160/ 4.5) 2 puff BIDRT INH 04/08/20 10:00 07/07/20 09:59 04/17/20 09:10 Dexamethasone (Decadron) 6 mg DAILY ORAL 04/14/20 09:00 04/23/20 09:01 04/17/20 09:10 Epoetin Paul (Epoetin Paul-EPBX(NON ESRD)) 3,000 unit -SAT SUBQ 04/11/20 21:00 07/10/20 20:59 04/15/20 21:21 Epoetin Paul (Epoetin Paul-EPBX(NON ESRD)) 4,000 unit SUBQ 04/11/20 21:00 07/10/20 20:59 04/15/20 21:21 Escitalopram Oxalate (Lexapro) 20 mg DAILY ORAL 04/08/20 09:00 05/08/20 08:59 04/17/20 09:10 Finasteride (Proscar) 5 mg DAILY ORAL 04/08/20 09:00 07/07/20 08:59 04/17/20 09:10 Hydroxyzine HCl (Atarax) 25 mg BIDPRN PRN ORAL Itching 04/08/20 06:00 05/07/20 21:44 04/17/20 02:26 Levothyroxine Sodium (Synthroid) 75 mcg DAILY@0630 ORAL 04/08/20 06:30 05/08/20 06:29 04/17/20 06:45 Levothyroxine Sodium (Synthroid) 100 mcg DAILY@0630 ORAL 04/08/20 06:30 05/08/20 06:29 04/17/20 06:45 Ondansetron HCl (Zofran ODT) 8 mg Q8H PRN ORAL Nausea & Vomiting 04/08/20 06:00 05/07/20 21:44 04/14/20 09:15 Oxybutynin Chloride (Ditropan) 10 mg DAILY ORAL 04/08/20 09:00 05/08/20 08:59 04/17/20 09:10 Pantoprazole (Protonix) 40 mg BID ORAL 04/08/20 09:00 05/08/20 08:59 04/17/20 09:10 Patient Own Medication (Patient's Own Med) 1 ea TID ORAL 04/09/20 13:00 05/09/20 12:59 04/17/20 09:10 Zolpidem Tartrate (Ambien) 5 mg HSPRN PRN ORAL Insomnia 04/17/20 00:30 04/24/20 00:29 04/17/20 01:04 Assessment/Plan Assessment/Plan ASSESSMENT JEWEL on CKD in setting of RCC Pulmonary HTN /CTEPH COVID 19 infection FTT, unable to care for himself Possible protein calorie malnutrition Metastatic colon Ca with lung mets ( biopsy proven)- on Nivolumab currently Polymicrobial UTI/ Enterobacter, Enterococci -> asymptomatic bacteria / chronic suprapubic catheter E/lyte imbalance : hypo Mg, hypo K Hypotension 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 Hx of perforated diverticulitis with multiple surgeries, s/p recent ileostomy takedown Anemia of chronic disease Moderate pulmonary HTN Chronic bronchitis HTN Obesity Incontinence associated dermatitis PLAN OF CARE MS floor O2 titrate to keep sat > 92 pulm toilet resume home inhaler continue a/c for DVT/PE s/p IVF and diuretic , CKD stable -as per nephro monitor renal parameters, lytes, avoid nephrotoxic, nephro recommends conservative medical management and avoid nephrotoxics monitor HH with goal to keep Hgb > 7, started on EPO, Venofer x 5 days completed 04/16 Hgb stable Venous Duplex BLE NGT cardio follows prior ECHO with pEF s/p bolus 04/13 and 04/15 off Bumex ( discussed with nephro) BP better, was initially on cefepime UCX + Enterobacter, Enterococci BCX NGTD stool C dif NGT ID eval appreciated per ID asymptomatic bacteriuria, given s/p catheter ; keep off abx rapid COVID 19 04/12 positive isolation pulse ox stable on RA, remains asymptomatic COVID 19 by PCR positive monitor resp status closely; inflam markers not impressive IL6 ordered ( not sure if still perform in this facility as send out test) CRP 4.2 a/c with Eliquis home meds resumed surgery follows skin care as per surgeon recommendations SW for placement PT eval and Rx fall precautions dietary eval GI prophylaxis supportive care dc plan for SNF placement now with known COVID positive case discussed and evaluated by supervising physician Sania Menard NP Apr 17, 2020 09:51 Eliazar Kumar MD Apr 17, 2020 16:46
[2020-04-17] MEDS ORDERED: HYDROcodone/Acetamin 5/325 tab ORAL PRN (10:45)
[2020-04-17 12:00] VITALS: BP 118/73
--- NOTE | 2020-04-17 12:15 | Surgery Progress Note ---
Surgery Progress Note Subjective Symptoms: improved, tolerating diet, voiding well, passing flatus, BM Objective Last 24 Hour Vital Signs Date Time Temp Pulse Resp B/P (MAP) Pulse Ox O2 Delivery O2 Flow Rate FiO2 04/17/20 09:00 Room Air 04/17/20 08:00 98.2 82 19 112/67 (82) 93 04/17/20 04:00 97.7 70 20 113/74 (87) 95 04/17/20 00:00 97.5 88 20 115/73 (87) 93 04/16/20 21:00 Room Air 04/16/20 20:00 97.4 80 19 141/61 (87) 93 04/16/20 17:47 97.3 04/16/20 16:00 97.3 76 19 109/73 (85) 97 I&O Intake and Output 04/16/20 04/17/20 19:00 07:00 Intake Total 720 ml 1060 ml Output Total 2000 ml 1000 ml Balance -1280 ml 60 ml Intake Oral 720 ml 1000 ml IV Total 60 ml Output Urine Total 2000 ml 1000 ml # Bowel Movements 2 Dressing: saturated Cardiovascular: RSR Respiratory: decreased breath sounds Abdomen: soft, flat, non-tender, present bowel sounds, non-distended Extremities: no edema, no tenderness, no cyanosis Laboratory Tests Test 04/17/20 06:00 White Blood Count 4.4 K/UL (4.8-10.8) L Red Blood Count 3.34 M/UL (4.70-6.10) L Hemoglobin 8.7 G/DL (14.2-18.0) L Hematocrit 28.5 % (42.0-52.0) L Mean Corpuscular Volume 85 FL (80-99) Mean Corpuscular Hemoglobin 26.2 PG (27.0-31.0) L Mean Corpuscular Hemoglobin Concent 30.6 G/DL (32.0-36.0) L Red Cell Distribution Width 20.5 % (11.6-14.8) H Platelet Count 233 K/UL (150-450) Mean Platelet Volume 5.4 FL (6.5-10.1) L Neutrophils (%) (Auto) 70.2 % (45.0-75.0) Lymphocytes (%) (Auto) 22.1 % (20.0-45.0) Monocytes (%) (Auto) 6.6 % (1.0-10.0) Eosinophils (%) (Auto) 0.1 % (0.0-3.0) Basophils (%) (Auto) 1.0 % (0.0-2.0) Sodium Level 137 MMOL/L (136-145) Potassium Level 3.4 MMOL/L (3.5-5.1) L Chloride Level 103 MMOL/L (98-107) Carbon Dioxide Level 28 MMOL/L (21-32) Anion Gap 6 mmol/L (5-15) Blood Urea Nitrogen 25 mg/dL (7-18) H Creatinine 1.6 MG/DL (0.55-1.30) H Estimat Glomerular Filtration Rate 42.2 mL/min (>60) Glucose Level 64 MG/DL (74-106) L Calcium Level 8.0 MG/DL (8.5-10.1) L Plan Problems: (1) Hypomagnesemia (2) UTI (urinary tract infection) (3) Hypokalemia (4) Renal insufficiency (5) Unable to ambulate (6) Incontinence associated dermatitis Assessment & Plan: Patient status post recent ostomy takedown has been re covering at home but was declining difficulty with breathing and ambulating came to emergency department [facility] [place] was admitted. He is still having difficulty with ambulating working with physical therapy. In his current state he is eating though he does not like the food and he is having loose bowel movements. Unfortunately is unable go to the bathroom is been sitting is with bowel movements and has noted some itching in the perirectal region on identification being noted to have gone associated dermatitis. I discussion with the patient regarding 2 bowel movements call light and assistance. Nursing staff aware. Please monitor for incontinence clean accordingly. Turn every 2 hours. Incentive spirometry. Offload pressures as possible. Keep heels elevated with pillows while in bed. Respiratory therapy. Thank you will follow the recommendations ostomy dressings BID with gauze packing and dressings (7) Decubital ulcer Assessment & Plan: Pt presented on admission with Full thickness stage 3 Pressure Injury. Pt stated "I have had wound for a couple of weeks." Full thickness Pressure Injury L Ischium.(L)0.8cm x (W)2cm x (D)0.2cm. Base of wound is amber with scattered slough. .Edges are macerated. Small amt serosanguineous exudate. No odor noted. Periwound is erythematous. No elevation in skin temp noted. No evidence of sacral Skin breakdown noted. R and And L heels are firm ,dry and blanchable. 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 Pt stated he is not capable of repositioning self without staff asst. Pt also declined to be positioned on his side. Pt was offered AN APM/JIN Mattress but pt also declined Surface support mattress. Tx.Plan: Cleanse L Ischial wound with Saline. Apply Therahoney. Apply Moisture Barrier Paste periwound. Cover with Optifoam drsg. every 3 days and prn. Apply Moisture Barrier Paste to Sacrum. Cover with Optifoam drsg. Change every 3 days and prn. Apply Cavilon Skin Barrier to both heels. Cover each heel with Optifoam drsg. Change every 7 days and prn. Reposition at least every 2hours or as tolerated. Off-load heels with Pillow. Jeremiah Gonzales Apr 17, 2020 12:15
--- NOTE | 2020-04-17 13:26 | Nephrology Progress Note ---
Assessment/Plan Status: stable Assessment/Plan: A/P 1) CKD 3B- Cr stable at baseline. At 1.6 2) Hypokalemia - replace po 3) Metastatic colon Ca with lung mets ( biopsy proven)- on Nivolumab currently -continue Optivo per PCP 4) Anemia of CKD- EPO and Iron replacement. hgb improved 5) COVID + per ID mgmt Subjective Date patient seen: Apr 17, 2020 Time patient seen: 13:25 ROS Limited/Unobtainable: Yes Allergies: Coded Allergies: LEVOFLOXACIN (Verified Allergy, Severe, throat closes up, 12/15/19) MELOXICAM (Verified Allergy, Severe, throat closes up, 12/15/19) Subjective In COVID isolation. Called into room Objective Last 24 Hour Vital Signs Date Time Temp Pulse Resp B/P (MAP) Pulse Ox O2 Delivery O2 Flow Rate FiO2 04/17/20 12:00 97.6 89 17 118/73 (88) 94 04/17/20 09:00 Room Air 04/17/20 08:00 98.2 82 19 112/67 (82) 93 04/17/20 04:00 97.7 70 20 113/74 (87) 95 04/17/20 00:00 97.5 88 20 115/73 (87) 93 04/16/20 21:00 Room Air 04/16/20 20:00 97.4 80 19 141/61 (87) 93 04/16/20 17:47 97.3 04/16/20 16:00 97.3 76 19 109/73 (85) 97 Intake and Output 04/16/20 04/17/20 19:00 07:00 Intake Total 720 ml 1060 ml Output Total 2000 ml 1000 ml Balance -1280 ml 60 ml Intake Oral 720 ml 1000 ml IV Total 60 ml Output Urine Total 2000 ml 1000 ml # Bowel Movements 2 Laboratory Tests 04/17/20 06:00: White Blood Count 4.4L, Red Blood Count 3.34L, Hemoglobin 8.7L, Hematocrit 28.5L , Mean Corpuscular Volume 85, Mean Corpuscular Hemoglobin 26.2L, Mean Corpuscular Hemoglobin Concent 30.6L, Red Cell Distribution Width 20.5H, Platel et Count 233, Mean Platelet Volume 5.4L, Neutrophils (%) (Auto) 70.2, Lymphocytes (%) (Auto) 22.1, Monocytes (%) (Auto) 6.6, Eosinophils (%) (Auto) 0.1, Basophils (%) (Auto) 1.0, Sodium Level 137, Potassium Level 3.4L, Chloride Level 103, Carbon Dioxide Level 28, Anion Gap 6, Blood Urea Nitrogen 25H, Creatinine 1.6H, Estimat Glomerular Filtration Rate 42.2, Glucose Level 64L, Calcium Level 8.0L Height (Feet): 5 Height (Inches): 7.00 Weight (Pounds): 223 Objective COVID isolation Conserve PPEs Call into room. no answer Javan Hernandez MD Apr 17, 2020 13:26
[2020-04-17 16:00] VITALS: BP 120/76
--- NOTE | 2020-04-17 19:32 | NUR ---
NURSE HAND-OFF: Important Events on Shift:[pain mgt, safety and comfort, monitoring labs and VS] Patient Status: [stable] Diet: [regular] Pending Orders: [] Pending Results/Labs:[] Pending MD notification:[] Latest Vital Signs: Temperature 97.8 , Pulse 86 , B/P 120 /76 , Respiratory Rate 17 , O2 SAT 94 , Nasal Cannula, O2 Flow Rate 2.0 . Vital Sign Comment: [] Latest Chan Fall Score: 60 Fall Risk: High Risk Safety Measures: Call light Within Reach, Bed Alarm Zone 1, Side Rails Side Rails x3, Bed position Low and Locked. Fall Precautions: Yellow Socks Door Sign Patient Fall Education Report given to [HOMERO Aguilar].
--- NOTE | 2020-04-17 19:35 | NUR ---
NURSE NOTES: Patient awake in bed, alert and oriented x4. COVID-19 precautions. On room air with no SOB or distress. IV intact and patent. Suprapubic catheter in place and draining well. Bed locked and in lowest position. Call light in reach. Will continue plan of care.
[2020-04-17 20:00] VITALS: BP 97/55
[2020-04-17] MEDS: Lomotil 2.5mg tab ORAL PRN (23:43)
--- NOTE | 2020-04-17 23:51 | NUR ---
NURSE NOTES: Patient had diarrhea x2. Requested Lomotil. Spoke with Dr. Kumar - new orders received. Will follow plan of care.
[2020-04-18] VITALS: BP 112/60
[2020-04-18 04:00] VITALS: BP 115/59
--- NOTE | 2020-04-18 06:56 | NUR ---
NURSE HAND-OFF: Important Events on Shift: Diarrhea x2, Lomitil ordered PRN Patient Status: Stable Diet: Reg Pending Orders: N/A Pending Results/Labs:CBC, BMP Pending MD notification: N/A Latest Vital Signs: Temperature 97.3 , Pulse 79 , B/P 115 /59 , Respiratory Rate 20 , O2 SAT 94 , Nasal Cannula, O2 Flow Rate 2.0 . Vital Sign Comment: N/A Latest Chan Fall Score: 60 Fall Risk: High Risk Safety Measures: Call light Within Reach, Bed Alarm Zone 1, Side Rails Side Rails x3, Bed position Low and Locked. Fall Precautions: Yellow Socks Door Sign Patient Fall Education
--- NOTE | 2020-04-18 07:03 | NUR ---
NURSE NOTES: Received AM report. pt is in the bed alert and awake. no acute distress noted. f/c is inplace and patent. HOB elevated, on O2@2l/min via NC. call light is within reach.
[2020-04-18 07:52] LABS: CALCIUM 7.8 MG/DL (8.5-10.1); CREATININE 1.6 MG/DL (0.55-1.30); POTASSIUM 3.7 MMOL/L (3.5-5.1)
[2020-04-18 07:54] LABS: BASOPHILS % (AUTO) 0.2 % (0.0-2.0); EOSINOPHILS % (AUTO) 0.1 % (0.0-3.0); HEMOGLOBIN 8.5 G/DL (14.2-18.0); LYMPHOCYTES % (AUTO) 24.2 % (20.0-45.0); MEAN CORPUSCULAR VOLUME 86 FL (80-99); MONOCYTES % (AUTO) 4.4 % (1.0-10.0); NEUTROPHILS % (AUTO) 71.2 % (45.0-75.0); PLATELET COUNT 227 K/UL (150-450); RED BLOOD COUNT 3.25 M/UL (4.70-6.10); RED CELL DISTRIBUTION WIDTH 20.6 % (11.6-14.8); WHITE BLOOD COUNT 4.5 K/UL (4.8-10.8)
[2020-04-18 08:00] VITALS: BP 119/63
--- NOTE | 2020-04-18 08:27 | Cardiology Progress Note ---
Assessment/Plan Assessment/Plan 1. New COVID-19 2. Colon CA with metastasis, on Nivolumab s/o ileostomy takedown 03/14/20 3. RCC with JEWEL on CKD 4. HFpEF, EF 69% per recent echo done at [facility] 03/14/2020 BNP 454 troponin negative Bumex for diuresis 5. HTN - well controlled 6. 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 7. Anemia of chronic disease 8. SOB and weakness at admission No acute distress. SBP and HR in normal territory. VUS negative for acute thrombus. Subjective Cardiovascular: Reports: edema Respiratory: Reports: shortness of breath Gastrointestinal/Abdominal: Reports: poor appetite Genitourinary: Reports: no symptoms Subjective COVID-10 positive after admission, no interval change Objective Last 24 Hour Vital Signs Date Time Temp Pulse Resp B/P (MAP) Pulse Ox O2 Delivery O2 Flow Rate FiO2 04/18/20 04:00 97.3 79 20 115/59 (77) 94 04/18/20 00:00 97.7 77 20 112/60 (77) 91 04/17/20 21:56 95 Room Air 21 04/17/20 21:00 Room Air 04/17/20 20:00 97.9 79 20 97/55 (69) 93 04/17/20 18:24 97.8 04/17/20 16:00 97.8 86 17 120/76 (91) 94 04/17/20 12:00 97.6 89 17 118/73 (88) 94 04/17/20 09:00 Room Air General Appearance: no apparent distress EENT: PERRL/EOMI Neck: no JVD Rhythm: NSR Cardiovascular: regular rhythm Respiratory/Chest: no respiratory distress Neurologic: hot room attendant II-XII grossly normal Intake and Output 04/17/20 04/18/20 19:00 07:00 Intake Total 240 ml Output Total 800 ml Balance -560 ml Intake Oral 240 ml Output Urine Total 800 ml # Voids 1 # Bowel Movements 1 Laboratory Tests Test 04/18/20 04:00 04/18/20 04:40 Sodium Level 138 MMOL/L (136-145) Potassium Level 3.7 MMOL/L (3.5-5.1) Chloride Level 104 MMOL/L (98-107) Carbon Dioxide Level 30 MMOL/L (21-32) Anion Gap 4 mmol/L (5-15) L Blood Urea Nitrogen 24 mg/dL (7-18) H Creatinine 1.6 MG/DL (0.55-1.30) H Estimat Glomerular Filtration Rate 42.2 mL/min (>60) Glucose Level 63 MG/DL (74-106) L Calcium Level 7.8 MG/DL (8.5-10.1) L White Blood Count 4.5 K/UL (4.8-10.8) L Red Blood Count 3.25 M/UL (4.70-6.10) L Hemoglobin 8.5 G/DL (14.2-18.0) L Hematocrit 28.0 % (42.0-52.0) L Mean Corpuscular Volume 86 FL (80-99) Mean Corpuscular Hemoglobin 26.2 PG (27.0-31.0) L Mean Corpuscular Hemoglobin Concent 30.4 G/DL (32.0-36.0) L Red Cell Distribution Width 20.6 % (11.6-14.8) H Platelet Count 227 K/UL (150-450) Mean Platelet Volume 5.3 FL (6.5-10.1) L Neutrophils (%) (Auto) 71.2 % (45.0-75.0) Lymphocytes (%) (Auto) 24.2 % (20.0-45.0) Monocytes (%) (Auto) 4.4 % (1.0-10.0) Eosinophils (%) (Auto) 0.1 % (0.0-3.0) Basophils (%) (Auto) 0.2 % (0.0-2.0) Beatriz Segovia PA-C Apr 18, 2020 08:27
[2020-04-18] MEDS: Lomotil 2.5mg tab ORAL PRN (09:16)
[2020-04-18] MEDS: Eliquis 2.5mg tablet ORAL SCH (09:16)
[2020-04-18] MEDS: Oxybutynin 5mg tab ORAL SCH (09:17)
[2020-04-18] MEDS: ADEMPAS 2.5 MG ORAL SCH (09:20)
--- NOTE | 2020-04-18 09:34 | Pulmonology Progress Note ---
Subjective ROS Limited/Unobtainable: Yes Allergies: Coded Allergies: LEVOFLOXACIN (Verified Allergy, Severe, throat closes up, 12/15/19) MELOXICAM (Verified Allergy, Severe, throat closes up, 12/15/19) Subjective afebrile denies CP, SOB COVID 19 by PCR positive as well remains asymptomatic in regards to COVID 19 pulse ox stable on RA BP stable dc plan in progress pt decided that he wants to go home with [facility] instead of SNF Objective Last 24 Hour Vital Signs Date Time Temp Pulse Resp B/P (MAP) Pulse Ox O2 Delivery O2 Flow Rate FiO2 04/18/20 04:00 97.3 79 20 115/59 (77) 94 04/18/20 00:00 97.7 77 20 112/60 (77) 91 04/17/20 21:56 95 Room Air 21 04/17/20 21:00 Room Air 04/17/20 20:00 97.9 79 20 97/55 (69) 93 04/17/20 18:24 97.8 04/17/20 16:00 97.8 86 17 120/76 (91) 94 04/17/20 12:00 97.6 89 17 118/73 (88) 94 Intake and Output 04/17/20 04/18/20 19:00 07:00 Intake Total 240 ml Output Total 800 ml Balance -560 ml Intake Oral 240 ml Output Urine Total 800 ml # Voids 1 # Bowel Movements 1 Objective General Appearance: no apparent distress, alert oriented x3 Lines, tubes and drains: peripheral HEENT: normocephalic, atraumatic, anicteric, mucous membranes moist Neck: non-tender, supple Respiratory/Chest: lungs clear - with moderate air exchange , no accessory muscle use Cardiovascular/Chest: normal peripheral pulses, normal rate Abdomen: normal bowel sounds, non tender, obese , soft, left lower abdomen healed scar, right upper abdomen site of previous ileostomy with dressing, intact ; no evidence of infection , healing Genitourinary/Rectal: s/p catheter with dark urine Extremities: normal range of motion, non-tender, no calf tenderness, normal capillary refill Neurologic: no motor/sensory deficits, alert, oriented x 3, responsive Musculoskeletal: normal muscle bulk Laboratory Tests 04/18/20 04:00: Sodium Level 138, Potassium Level 3.7, Chloride Level 104, Carbon Dioxide Level 30, Anion Gap 4L, Blood Urea Nitrogen 24H, Creatinine 1.6H, Estimat Glomerular Filtration Rate 42.2, Glucose Level 63L, Calcium Level 7.8L 04/18/20 04:40: White Blood Count 4.5L, Red Blood Count 3.25L, Hemoglobin 8.5L, Hematocrit 28.0L , Mean Corpuscular Volume 86, Mean Corpuscular Hemoglobin 26.2L, Mean Corpuscular Hemoglobin Concent 30.4L, Red Cell Distribution Width 20.6H, Platelet Count 227, Mean Platelet Volume 5.3L, Neutrophils (%) (Auto) 71.2, Lymphocytes (%) (Auto) 24.2, Monocytes (%) (Auto) 4.4, Eosinophils (%) (Auto) 0.1, Basophils (%) (Auto) 0.2 Current Medications Medications (Trade) Dose Ordered Sig/Kevon Route PRN Reason Start Time Stop Time Status Last Admin Dose Admin Acetaminophen/ Hydrocodone Bitart ([place] 5/325) 1 tab Q6H PRN ORAL Severe Pain (Pain Scale 7-10) 04/17/20 10:45 04/24/20 10:44 04/17/20 17:54 Alprazolam (Xanax) 0.5 mg TID PRN ORAL For Anxiety 04/15/20 00:12 04/22/20 00:11 04/17/20 17:55 Apixaban (Eliquis) 2.5 mg BID ORAL 04/08/20 18:30 07/07/20 18:29 04/18/20 09:16 Atorvastatin Calcium (Lipitor) 10 mg BEDTIME ORAL 04/08/20 21:00 07/07/20 20:59 04/17/20 21:50 Budesonide/ Formoterol Fumarate (Symbicort 160/ 4.5) 2 puff BIDRT INH 04/08/20 10:00 07/07/20 09:59 04/17/20 21:51 Dexamethasone (Decadron) 6 mg DAILY ORAL 04/14/20 09:00 04/23/20 09:01 04/18/20 09:16 Diphenoxylate HCl/ Atropine (Lomotil) 2.5 mg BID PRN ORAL Diarrhea 04/17/20 23:45 05/17/20 23:44 04/18/20 09:16 Epoetin Paul (Epoetin Paul-EPBX(NON ESRD)) 3,000 unit SAT- SUBQ 04/11/20 21:00 07/10/20 20:59 04/15/20 21:21 Epoetin Paul (Epoetin Paul-EPBX(NON ESRD)) 4,000 unit SUBQ 04/11/20 21:00 07/10/20 20:59 04/15/20 21:21 Escitalopram Oxalate (Lexapro) 20 mg DAILY ORAL 04/08/20 09:00 05/08/20 08:59 04/18/20 09:16 Finasteride (Proscar) 5 mg DAILY ORAL 04/08/20 09:00 07/07/20 08:59 04/18/20 09:16 Hydroxyzine HCl (Atarax) 25 mg BIDPRN PRN ORAL Itching 04/08/20 06:00 05/07/20 21:44 04/17/20 21:56 Levothyroxine Sodium (Synthroid) 75 mcg DAILY@0630 ORAL 04/08/20 06:30 05/08/20 06:29 04/18/20 06:42 Levothyroxine Sodium (Synthroid) 100 mcg DAILY@0630 ORAL 04/08/20 06:30 05/08/20 06:29 04/18/20 06:41 Ondansetron HCl (Zofran ODT) 8 mg Q8H PRN ORAL Nausea & Vomiting 04/08/20 06:00 05/07/20 21:44 04/14/20 09:15 Oxybutynin Chloride (Ditropan) 10 mg DAILY ORAL 04/08/20 09:00 05/08/20 08:59 04/18/20 09:17 Pantoprazole (Protonix) 40 mg BID ORAL 04/08/20 09:00 05/08/20 08:59 04/18/20 09:16 Patient Own Medication (Patient's Own Med) 1 ea TID ORAL 04/09/20 13:00 05/09/20 12:59 04/18/20 09:20 Zolpidem Tartrate (Ambien) 5 mg HSPRN PRN ORAL Insomnia 04/17/20 00:30 04/24/20 00:29 04/17/20 21:51 Assessment/Plan Assessment/Plan ASSESSMENT JEWEL on CKD in setting of RCC Pulmonary HTN /CTEPH COVID 19 infection FTT, unable to care for himself Possible protein calorie malnutrition Metastatic colon Ca with lung mets ( biopsy proven)- on Nivolumab currently Polymicrobial UTI/ Enterobacter, Enterococci -> asymptomatic bacteria / chronic suprapubic catheter E/lyte imbalance : hypo Mg, hypo K Hypotension 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 Hx of perforated diverticulitis with multiple surgeries, s/p recent ileostomy takedown Anemia of chronic disease Moderate pulmonary HTN Chronic bronchitis HTN Obesity Incontinence associated dermatitis PLAN OF CARE MS floor O2 titrate to keep sat > 92 pulm toilet resume home inhaler continue a/c for DVT/PE s/p IVF and diuretic , CKD stable -as per nephro monitor renal parameters, lytes, avoid nephrotoxic, nephro recommends conservative medical management and avoid nephrotoxics monitor HH with goal to keep Hgb > 7, started on EPO, Venofer x 5 days completed 04/16 Hgb stable Venous Duplex BLE NGT cardio follows prior ECHO with pEF s/p bolus 04/13 and 04/15 off Bumex ( discussed with nephro) BP better, was initially on cefepime UCX + Enterobacter, Enterococci BCX NGTD stool C dif NGT ID eval appreciated per ID asymptomatic bacteriuria, given s/p catheter ; keep off abx rapid COVID 19 04/12 positive isolation pulse ox stable on RA, remains asymptomatic COVID 19 by PCR positive started on steroids monitor resp status closely; inflam markers not impressive IL6 ordered ( not sure if still perform in this facility as send out test) CRP 4.2 a/c with Eliquis home meds resumed surgery follows skin care as per surgeon recommendations SW for placement PT eval and Rx fall precautions dietary eval GI prophylaxis supportive care dc plan for SNF placement now with known COVID positive now pt wants to go home with HHS, has all meds at home his partner for 35 yrs will take care of him case discussed and evaluated by supervising physician Sania Menard NP Apr 18, 2020 09:34 Eliazar Kumar MD Apr 18, 2020 17:24
--- NOTE | 2020-04-18 09:59 | NUR ---
RD ASSESSMENT & RECOMMENDATIONS SEE CARE ACTIVITY FOR COMPLETE ASSESSMENT DAILY ESTIMATED NEEDS: Needs based on wound/ 76kg abw 25-30 kcals/kg 3222-8320 total kcals 1.25-1.8 g protein/kg 95-136 g total protein 25-30 mL/kg 6434-1026 total fluid mLs NUTRITION DIAGNOSIS: * Increased protein and micronutrients intake needs R/T wound healing as evidenced by pt admitted w/ stage 3 wound @ L ischium. * Altered nutrition related lab values R/T clinical condition as evidenced by consistent AM hypoglycemic episodes (63, 64, 68, 69) CURRENT DIET: LOW NA PO DIET RECOMMENDATIONS: LOW NA/ texture as tolerated ADDITIONAL RECOMMENDATIONS: * Wound healing: Add MVI x 1, Vit C 500mg BID, ZnSO4 220mg QD x 10 days Kevan BID added to tray * Rec accuchecks q 4hrs for close BG monitoring for hypoglycemia * Encourage snacks TID in b/w meals * Add Ensure Enlive and snacks on dinner tray (for HS snack) * Consider added D5 IVF due to consistent hypoglycemic episodes * Monitor lytes closely w/ diarrhea, replete as needed
[2020-04-18] MEDS ORDERED: DEXAMETHASONE6 MG PO (10:59)
[2020-04-18 12:00] VITALS: BP 122/61
--- NOTE | 2020-04-18 12:45 | NUR ---
NURSE NOTES: Patient is discharged home without any signs of distress. Patient is alert and awake. A&O X 4. verbally responsive. Respiration is even and unlabored on room air. Denies any pain. Patient has belongings; inventory paper signed. Patient left with his home medications. Refuses RN to take a picture of his wound on left ischial area; explained to pt the purpose of taking wound picture. pt remans non-compliant. Patient is provided with after-care instructions, provided medication teaching, and to follow-up with any MD's appointment, patient verbalized understanding. IV site and wrist band removed. [facility] company of his male partner via a private vehicle.
--- NOTE | 2020-04-18 17:43 | Surgery Progress Note ---
Surgery Progress Note Subjective Additional Comments late entry doing well excited to go home plan to f/u with original surgeon soon dressings changed for d/c care plan given to patient Objective Last 24 Hour Vital Signs Date Time Temp Pulse Resp B/P (MAP) Pulse Ox O2 Delivery O2 Flow Rate FiO2 04/18/20 12:00 98.1 76 20 122/61 (81) 93 04/18/20 09:00 Room Air 04/18/20 08:00 97.6 82 20 119/63 (81) 94 04/18/20 07:51 95 Nasal Cannula 2.0 28 04/18/20 04:00 97.3 79 20 115/59 (77) 94 04/18/20 00:00 97.7 77 20 112/60 (77) 91 04/17/20 21:56 95 Room Air 21 04/17/20 21:00 Room Air 04/17/20 20:00 97.9 79 20 97/55 (69) 93 04/17/20 18:24 97.8 I&O Intake and Output 04/17/20 04/18/20 19:00 07:00 Intake Total 240 ml Output Total 800 ml Balance -560 ml Intake Oral 240 ml Output Urine Total 800 ml # Voids 1 # Bowel Movements 1 Dressing: dry Wound: clean Cardiovascular: RSR Respiratory: clear Abdomen: non-tender, present bowel sounds, other, non-distended Extremities: no edema, no tenderness, no cyanosis Laboratory Tests Test 04/18/20 04:00 04/18/20 04:40 Sodium Level 138 MMOL/L (136-145) Potassium Level 3.7 MMOL/L (3.5-5.1) Chloride Level 104 MMOL/L (98-107) Carbon Dioxide Level 30 MMOL/L (21-32) Anion Gap 4 mmol/L (5-15) L Blood Urea Nitrogen 24 mg/dL (7-18) H Creatinine 1.6 MG/DL (0.55-1.30) H Estimat Glomerular Filtration Rate 42.2 mL/min (>60) Glucose Level 63 MG/DL (74-106) L Calcium Level 7.8 MG/DL (8.5-10.1) L White Blood Count 4.5 K/UL (4.8-10.8) L Red Blood Count 3.25 M/UL (4.70-6.10) L Hemoglobin 8.5 G/DL (14.2-18.0) L Hematocrit 28.0 % (42.0-52.0) L Mean Corpuscular Volume 86 FL (80-99) Mean Corpuscular Hemoglobin 26.2 PG (27.0-31.0) L Mean Corpuscular Hemoglobin Concent 30.4 G/DL (32.0-36.0) L Red Cell Distribution Width 20.6 % (11.6-14.8) H Platelet Count 227 K/UL (150-450) Mean Platelet Volume 5.3 FL (6.5-10.1) L Neutrophils (%) (Auto) 71.2 % (45.0-75.0) Lymphocytes (%) (Auto) 24.2 % (20.0-45.0) Monocytes (%) (Auto) 4.4 % (1.0-10.0) Eosinophils (%) (Auto) 0.1 % (0.0-3.0) Basophils (%) (Auto) 0.2 % (0.0-2.0) Plan Problems: (1) Hypomagnesemia (2) UTI (urinary tract infection) (3) Hypokalemia (4) Renal insufficiency (5) Unable to ambulate (6) Incontinence associated dermatitis Assessment & Plan: Patient status post recent ostomy takedown has been recovering at home but was declining difficulty with breathing and ambulating came to emergency department [facility] was admitted. He is still having difficulty with ambulating working with physical therapy. In his current state he is eating though he does not like the food and he is having loose bowel movements. Unfortunately is unable go to the bathroom is been sitting is with bowel movements and has noted some itching in the perirectal region on identification being noted to have gone associated dermatitis. I discussion with the patient regarding 2 bowel movements call light and assistance. Nursing staff aware. Please monitor for incontinence clean accordingly. Turn every 2 hours. Incentive spirometry. Offload pressures as possible. Keep heels elevated with pillows while in bed. Respiratory therapy. Thank you will follow the recommendations ostomy dressings BID with gauze packing and dressings (7) Decubital ulcer Assessment & Plan: Pt presented on admission with Full thickness stage 3 Pressure Injury. Pt stated "I have had wound for a couple of weeks." Full thickness Pressure Injury L Ischium.(L)0.8cm x (W)2cm x (D)0.2cm. Base of wound is amber with scattered slough. .Edges are macerated. Small amt serosanguineous exudate. No odor noted. Periwound is erythematous. No elevation in skin temp noted. No evidence of sacral Skin breakdown noted. R and And L heels are firm ,dry and blanchable. 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 Pt stated he is not capable of repositioning self without staff asst. Pt also declined to be positioned on his side. Pt was offered AN APM/JIN Mattress but pt also declined Surface support mattress. Tx.Plan: Cleanse L Ischial wound with Saline. Apply Therahoney. Apply Moisture Barrier Paste periwound. Cover with Optifoam drsg. every 3 days and prn. Apply Moisture Barrier Paste to Sacrum. Cover with Optifoam drsg. Change every 3 days and prn. Apply Cavilon Skin Barrier to both heels. Cover each heel with Optifoam drsg. Change every 7 days and prn. Reposition at least every 2hours or as tolerated. Off-load heels with Pillow. Jeremiah Gonzales Apr 18, 2020 17:43
--- NOTE | 2020-04-20 13:42 | Discharge Summary ---
Discharge Summary Discharge Summary _ DATE OF ADMISSION: 04/07/2020 DATE OF DISCHARGE: 04/18/2020 DISCHARGED BY: Dr. Kumar REASON FOR ADMISSION: 74 years old male recently hospitalized at [facility] for takedown of ileostomy with PMH of CKD, HTN, moderate pulmonary HTN, colon cancer, history of perforated diverticulitis, status post multiple surgery, s/p recent ileostomy takedown ( as mentioned above), metastatic colon cancer with mets to lungs ( biopsy proven RML/RUL wedge , currently on Nivolumab), history of left femoral DVT and bilateral PE, diagnosed 05/01/2019, on a/c; chronic cough/chronic bronchitis apparently was unable to ambulate at home and stay on his own. He denied fever and chills. He denied abdominal pain . He reported loose bowel movement. No nausea or vomiting . No cough or shortness of breath. COVID-19 at [facility] last week was negative. Patient usually oxygen dependent at home at 2 to 2-1/2 L /min. Patient reported feeling dehydrated . He reported generalized pain and weakness. Upon evaluation pulse oximetry was 90% on the room room air , no fevers. Laboratory work-up revealed anemia with hemoglobin 9.1, hematocrit 28 ,no leukocytosis, platelet count 176. Potassium 3.1. Mg 1.5 BUN 20, creatinine 1.8. ProBNP 454. Albumin 2.0. CRP 8.9 Urinalysis revealed evidence of UTI and +2 protein . Urine culture thsi amd with gram-negative rods. Chest x-ray showed prominent mediastinum with apparent smooth caliber change of the mid trachea ; mediastinal mass and lymphadenopathy not excluded. Abdominal x-ray revealed nonspecific bowel gas pattern. In emergency department patient started on IV fluids, started on replacement of electrolytes and admitted for further management CONSULTANTS: medicaid analyst Dr. Rafi BOND specialist Dr. Cruz back tufter Dr.De Suad Gonzales [facility] COURSE: Patient admitted to medical surgical floor. Supplemental oxygen provided and titrated to keep pulse oximetry above 92%. Pulmonary toilet provided. Home inhalers resumed. Anticoagulation continue for chronic DVT/ PE. Patient had chronic leg edema and DVT left popliteal vein to femoral vein. Venous duplex bilateral lower extremity revealed no evidence of acute DVT. Prior echocardiogram revealed preserved ejection fraction ( done at [facility] done in February 2020 ). Troponin remained negative. Patient initially received Bumex ,pro BNP 454. Patient developed hypotension . Bumex was discontinued . Patient received boluses on 04/13 and 04/15 due to hypotension. Blood pressure stabilized. Renal parameters and electrolytes were closely monitored , electrolytes corrected as needed , nephrotoxic's were avoided Potassium was replaced orally. [employer] recommended conservative medical management and avoid nephrotoxic. Per back tufter chronic kidney disease was stable. Patient initially started on cefepime . Urine culture revealed growth of Enterobacter and Enterococcus. Blood culture were negative. Stool for C. difficile was negative. Patient had no urinary complaints. Patient remained afebrile no leukocytosis. Per ID specialist patient had asymptomatic bacteriuria , given suprapubic catheter. ID specialist recommended to keep patient off antibiotic . Rapid COVID-19 on 04/12 was positive. Patient was kept in isolation. Pulse oximetry remained stable on room air . Patient remained asymptomatic in terms of COVID infection, no respiratory distress. COVID-19 test was repeated by PCR and still was positive. Patient subsequently started on steroids. Respiratory status was closely monitored. Inflammatory markers were not impressive. Anticoagulation with Eliquis continues, as mentioned above. Home medication resumed. GI prophylaxis provided. Fall precaution maintained. Patient was working with a physical therapist. Protein supplements provided as per clinical registered nurse recommendation. Hemoglobin and hematocrit were closely monitored with goal to keep hemoglobin above 7. Patient received 5 days of IV Venofer. Patient started on Epogen as per back tufter. Creatinine remained stable , at baseline. Wound care provided as per surgeon recommendation . Continue wound care at home by home health services. Patient declined placement to fdc facility and opted to go home with home health services. Discussion was held with patient and his partner , who both felt comfortable for patient to go home. Strict return to ED precautions provided Patient will need to complete steroids for total of 10 days . FINAL DIAGNOSES: COVID-19 infection Acute kidney injury on chronic kidney disease CKD 3B in setting of RCC FTT, unable to care for himself Protein calorie malnutrition Metastatic colon cancer with lung mets ( biopsy-proven), on nivolumab currently Asymptomatic bacteriuria likely due to chronic suprapubic catheter Electrolyte imbalance Hypertension History of DVT and PE History of Nivolumab associated pneumonitis History of perforated diverticulitis with multiply surgery, status post recent ileostomy takedown Anemia of chronic disease Moderate pulmonary hypertension Chronic bronchitis Hypertension Obesity Incontinence associated dermatitis Stage III pressure ulcer , present on admission DISCHARGE MEDICATIONS: See Medication Reconciliation list. DISCHARGE INSTRUCTIONS: Patient was discharged home with home health services. Follow up with primary care provider in one week. Sania Menard NP Apr 20, 2020 13:42
== END 2020-04-18 13:29 | disposition home or self-care (01) | DRG 177 ==
LOC: EMR 15:26 → 4E 16:10 → EDBEDREQ 16:26 → 3E 04-09 13:46 → 4E 04-12 18:44
DX: U07.1 COVID-19 (principal); L89.323 Pressure ulcer of left buttock, stage 3; N17.9 Acute kidney failure, unspecified; N39.0 Urinary tract infection, site not specified; I13.0 Hypertensive heart and chronic kidney disease with heart failure and stage 1 through stage 4 chronic kidney disease, or unspecified chronic kidney disease; E46 Unspecified protein-calorie malnutrition; C78.00 Secondary malignant neoplasm of unspecified lung; I50.30 Unspecified diastolic (congestive) heart failure; I82.532 Chronic embolism and thrombosis of left popliteal vein; C64.9 Malignant neoplasm of unspecified kidney, except renal pelvis; I27.82 Chronic pulmonary embolism; C18.9 Malignant neoplasm of colon, unspecified; E87.6 Hypokalemia; E83.42 Hypomagnesemia; E66.9 Obesity, unspecified; I27.20 Pulmonary hypertension, unspecified; N18.32 Chronic kidney disease, stage 3b; Z88.1 Allergy status to other antibiotic agents; Z88.8 Allergy status to other drugs, medicaments and biological substances; Z79.01 Long term (current) use of anticoagulants; I95.9 Hypotension, unspecified; R62.7 Adult failure to thrive; R32 Unspecified urinary incontinence; L30.8 Other specified dermatitis; E87.8 Other disorders of electrolyte and fluid balance, not elsewhere classified; D63.8 Anemia in other chronic diseases classified elsewhere; J42 Unspecified chronic bronchitis; E03.9 Hypothyroidism, unspecified; R26.2 Difficulty in walking, not elsewhere classified; B96.89 Other specified bacterial agents as the cause of diseases classified elsewhere; B95.2 Enterococcus as the cause of diseases classified elsewhere
CPT/HCPCS: 36415; 71045; 74018; 80048; 80053; 81003; 82550; 82728; 83520; 83540; 83550; 83605; 83615; 83690; 83735; 83880; 84100; 84484; 85007; 85025; 85379; 85610; 85651; 85730; 86140; 87040; 87086; 87181; 87324; 93005; 93970; 94640; 96361; 96374; 99285; J7030; J8499; U0002